=== PATIENT | male | born 1955 | race Hispanic/Latino ===

== ENCOUNTER 2017-11-04 18:57 | Inpatient (IN) | payer MEDICARE, SELFPAY ==
[~2017-11-04 18:57] MED LIST: ISOVUE-370 76%-LOCM 1 ML ONE
[2017-11-04] MEDS ORDERED: Fentanyl 20 MCG/ML 250 ML IVPB SCH ×2 (19:15→22:50)
[2017-11-04] MEDS ORDERED: Sodium Bicarb 50 MEQ/50 ML Abboject 8.4% SYRINGE ONE ×2 (19:18→19:28)
[2017-11-04 19:19] LABS: Actual Bicarbonate (HCO3a) 32.5 mEq/L (22-26); Base Excess (BEa) 0.7 mEq/L (0 (+/-) 2.5); CO2 Tension 95.9 mmHg (35.0-45.0); Hematocrit-ABG 46.5 % (42.0-52.0); Hemoglobin (Hb) 13.6 g/dL (14.0-18.0); O2 Tension (PaO2) 167.2 mmHg (80.0-100.0); pH, Arterial 7.15 (7.35-7.45)
[2017-11-04 19:20] LABS: ALV-art Gradient 137.725 (0-20); Analyzer IN Cardio ER; Calcium, Ionized 1.1 mmol/L (1.12-1.30); Puncture Site RRA
[2017-11-04] MEDS ORDERED: Fentanyl 100 MCG/2 ML VIAL ONE (19:25)
[2017-11-04] MEDS ORDERED: Albuterol Sulfate 2.5 mg/3 ml Neb ONE (19:38)
[2017-11-04 20:16] LABS: pH, Arterial 7.29 (7.35-7.45)
[2017-11-04 20:17] LABS: Actual Bicarbonate (HCO3a) 34.9 mEq/L (22-26); CO2 Tension 74.3 mmHg (35.0-45.0); Hematocrit-ABG 41.5 % (42.0-52.0); Hemoglobin (Hb) 12.8 g/dL (14.0-18.0); O2 Tension (PaO2) 151.3 mmHg (80.0-100.0)
[2017-11-04 20:18] LABS: ALV-art Gradient 180.625 (0-20); Analyzer IN Cardio ER; Puncture Site RRA
--- NOTE | 2017-11-04 20:35 | RAD ---
CHEST ONE VIEW: History: 62-year-old male who presented unresponsive, was intubated and had an NG tube placed. History of COPD and respiratory distress. FINDINGS: Endotracheal tube is in satisfactory location. NG tube has been placed, the distal tip of which is di fficult to definitely ascertain. It does appear to extend down to at least the hemidiaphragm but its distal portion is not definitely seen. There is some generalized right sided pleural thickening and s ome focal pleural thickening and/or loculated pleural effusion in the left costophrenic angle. IMPRESSION: Endotracheal tube in satisfactory location. NG tube placed with the tip extending down to near the le blank of the hemidiaphragm although the definite end of the tip is not seen. Right sided pleural thicke titi. Focal pleural density in the left costophrenic angle suggesting some loculated pleural fluid or some pleural thickening. No evidence for pneumonia. POS: [facility]
[2017-11-04] MEDS: Famotidine/PF 20 mg/2ml Vial SLOW IVP SCH (21:45)
[2017-11-04] MEDS ORDERED: Propofol 1,000 MG/100 ML VIAL IV ONE (21:47)
[2017-11-04] MEDS ORDERED: Vancomycin HCl 1 GM in Sodium Chloride 0.9% 250 ML 250 ML IVPB SCH (22:18)
[2017-11-04] MEDS ORDERED: Dextrose 5% in Water 1,000 ML IV PRN (22:18)
[2017-11-04] MEDS ORDERED: Dextrose 50% Abboject 50 ML SYRINGE SLOW IVP PRN (22:18)
[2017-11-04] MEDS ORDERED: DC Sedation Protocol FS SCH (22:18)
[2017-11-04] MEDS ORDERED: CCU Electrolyte Replacement 1 EACH FS SCH (22:18)
[2017-11-04] MEDS ORDERED: Potassium Phosphate 15 MMOL in Sodium Chloride 0.9% 250 ML 250 ML IV PRN (22:32)
[2017-11-04] MEDS ORDERED: Magnesium Oxide 400 MG TAB PO PRN ×2 (22:32)
[2017-11-04] MEDS ORDERED: Potassium Phosphate 12 MMOL in Sodium Chloride 0.9% 250 ML 250 ML IV PRN (22:32)
[2017-11-04] MEDS ORDERED: Magnesium 2 GM/NS 0.9% 100 ML 2 GM in Premix Bag 1 BAG IVPB PRN (22:32)
[2017-11-04] MEDS ORDERED: Potassium Chloride 40 MEQ in Premix Bag 1 BAG IVPB PRN (22:32)
[2017-11-04] MEDS ORDERED: Potassium Phosphate 9 MMOL in Sodium Chloride 0.9% 100 ML IVPB PRN (22:32)
[2017-11-04] MEDS ORDERED: Potassium Chloride 20 MEQ TAB PO PRN (22:32)
[2017-11-04] MEDS ORDERED: CCU ELECTROLYTE REPLACEMENT PROTOCOL FS PRN (22:32)
[2017-11-04] MEDS ORDERED: Vancomycin HCl 1 GM in Premix Bag 1 BAG IVPB SCH (22:45)
[2017-11-04] MEDS ORDERED: Piperacillin/Tazobactam 4.5 GM in Sodium Chloride 0.9% 100 ML IVPB SCH (22:45)
[2017-11-04] MEDS ORDERED: Ipratropium Bromide 2.5 ml Neb NEB SCH (22:45)
[2017-11-04] MEDS ORDERED: Famotidine/PF 20 mg/2ml Vial SLOW IVP SCH (22:45)
[2017-11-04] MEDS ORDERED: Albuterol Sulfate 2.5 mg/3 ml Neb NEB SCH (22:45)
--- NOTE | 2017-11-04 22:47 | CT ---
CHEST CTA ABDOMEN CTA: Exams include 3D rendering. History: 62-year-old male who was unresponsive and with distended abdomen. FINDINGS: There are some bilateral somewhat irregular pleural thickening noted bilaterally with scattered pleur al based parenchymal changes, evidence for some chronic lung change. Minimally enlarged upper pretrac heal lymph node at 1.2 cm with some other smaller mediastinal and bilateral hilar lymph nodes. Three vessel coronary artery calcific disease. The contrast bolus is very limited for aortic and pulmonary artery evaluation. The central pulmonary arteries appear to be free of thrombus. No evidence for thoracic aortic aneurys m or dissection. The abdomen shows some atherosclerotic calcific plaques but no evidence of aneurysm or dissection. Th ere are some fatty changes in the liver. No evidence for other significant acute process in the abdom en other than a nonobstructing right renal calculus. IMPRESSION: 1. No evidence for aortic aneurysm or dissection. No central pulmonary artery thrombus. 2. Very limited contrast concentration which lowers the sensitivity of this study. Scattered up to mi nimally enlarged lymph nodes in the mediastinal and hilar regions. Chronic appearing bilateral pleura l thickening and pleural based parenchymal changes. Endotracheal tube in satisfactory location. The N G tube extends well into the stomach. Nonobstructing right renal calculus. No evidence of abdominal a scites. No other acute process. POS: [facility]
[2017-11-04] MEDS ORDERED: DISCONTINUE PREVIOUS NARCOTIC PAIN MEDICATIONS AND BENZODIAZEPINES FS SCH (22:50)
[2017-11-04] MEDS ORDERED: Sodium Chloride 0.9% 1,000 ML IV SCH (23:00)
[2017-11-04] MEDS ORDERED: VANCOMYCIN IVPB PRN (23:19)
[2017-11-04] MEDS: Sodium Chloride 0.9% 1,000 ML IV SCH (23:30)
[2017-11-05] MEDS: HumaLOG 300 UNITS/3 ML VIAL SC PRN ×5 (00:17→21:25)
[2017-11-05] MEDS ORDERED: Ipratropium Bromide 2.5 ml Neb NEB SCH (01:00)
[2017-11-05] MEDS ORDERED: Albuterol Sulfate 2.5 mg/3 ml Neb NEB SCH (01:00)
--- NOTE | 2017-11-05 01:07 | HP ---
CHIEF COMPLAINT: Shortness of breath. HISTORY OF PRESENT ILLNESS: This is a 62-year-old pleasant gentleman who was apparently in usual sta te of health who called the EMS to his home because of shortness of breath. In the morning, they gav e him some breathing treatments and he felt better, but they recommended him to come to the hospital, but he refused today. The EMS was called back again and afterwards at which point, he was more shor t of breath and they tried BiPAP event, he failed BiPAP and he was brought to the emergency room, whe re he was intubated. The patient was then sent out here for higher level of care. Patient was given 2 amps of bicarb out here and some empiric antibiotics. Patient was on empiric antibiotics and agai n he is going to be admitted to the CCU for management of the acute respiratory failure most of the h istory is obtained from the old chart and the ER physician. PAST MEDICAL HISTORY: Significant for recent admission in 12/2016 for similar problems. Past medica l history significant for chronic respiratory failure due to chronic obstructive pulmonary disease ex acerbation, obstructive sleep apnea, morbid obesity, hypertension, diabetes mellitus, congestive hear t failure with normal EF. PAST SURGICAL HISTORY: Significant for pacemaker placement. CODE STATUS: FULL CODE. SOCIAL HISTORY: Smokes apparently half pack per day. Denies any alcohol or recreational drug use. MEDICATIONS: Please see MAR. ALLERGIES: No known drug allergies. FAMILY HISTORY: Negative for diabetes and hypertension. REVIEW OF SYSTEMS: Cannot be obtained as patient is sedated. PHYSICAL EXAMINATION: GENERAL: Patient is lying in bed, intubated, and sedated. HEENT: Atraumatic, normocephalic. Pupils are equally round, reactive to light. Extraocular muscle movements intact. Mucous membranes moist. NECK: Supple. No JVD. CHEST: Coarse breath sounds heard. ABDOMEN: Soft and distended, vague pulsatile mass present. Bowel sounds are sluggish. EXTREMITIES: No cyanosis, clubbing, edema. Distal pulses present. NEUROLOGIC: The patient is intubated, cannot be evaluated. LABORATORY DATA: ABG 7.15, pCO2 was 95, pO2 is 167. Patient's WBC count is 22, hemoglobin is 14, po tassium is 5, creatinine 0.8. Chest x-ray shows congestion. ASSESSMENT AND PLAN: 1. Sepsis with elevated white count, possibly secondary to some kind of pulmonary infection giving r ise to chronic obstructive pulmonary disease exacerbation coupled with congestive heart failure exace rbation, giving rise to acute respiratory failure. We will intubate the patient. We will consult Pu lmonary, we will follow BNP. We will give the patient antibiotics, steroids, and do vent management. Neb treatments as needed. We will trend troponins. 2. Status post pacemaker, stable. 3. Patient's abdominal distention, we will do CT scan of the abdomen and do the need for. 4. Morbid obesity. 5. History of obstructive sleep apnea, and diabetes. We will put him on insulin sliding scale. 6. History of hypertension. 7. Sequential compression devices for deep venous thrombosis prophylaxis. I will work with Pulmonar y and further caring for the patient for the acute respiratory failure. Clinical course, we will make recommendations as the clinical course evolves.
[2017-11-05 01:38] LABS: Bacteria/HPF None Seen HPF (None Seen); Bilirubin Negative (Negative); Blood, Urine Negative (Negative); Clarity CLEAR (Clear); Glucose, Urine (Dipstick) 500 mg/dL (Negative); Hyaline Casts/LPF 4-6 HYALINE CAST LPF (0-3 Hyaline); Leukocyte Negative (Negative); Nitrite Negative (Negative); Pathc Cast-AUWi Flag 1.08 (0-2.49); Protein, Urine (Dipstick) 30 mg/dL (Neg-Trace); Squamous Epithelial 0-3 HPF (0-3); Urobilinogen 0.2 mg/dL (0.2-1.0)
[2017-11-05 01:39] LABS: Specific Gravity, Urine 1.086 (1.002-1.036)
--- NOTE | 2017-11-05 02:16 | CON ---
DATE OF CONSULTATION: 11/04/2017 CONSULTING PHYSICIAN: Hospitalist Group. REASON FOR CONSULTATION: Acute hypoxic and hypercapnic respiratory failure related to his chronic ob structive pulmonary disease exacerbation. HISTORY OF PRESENT ILLNESS: The patient is a 62-year-old male who presented to the [facility] Room with respiratory failure. I do not know when symptoms started; apparently, he failed mel nvasive measures at [place] and was subsequently intubated. He was then helicoptered over here for further evaluation. PAST MEDICAL HISTORY: 1. Chronic obstructive pulmonary disease. 2. Obstructive sleep apnea requiring CPAP at night. 3. Morbid obesity. 4. Hypertension. 5. Diabetes mellitus type 2. 6. Hyperlipidemia. 7. Congestive heart failure, unknown systolic versus diastolic. PAST SURGICAL HISTORY: Pacemaker placement. MEDICATIONS PRIOR TO ADMISSION: Have not been updated at this time. Previously, he has been on pred nisone, metformin, clonazepam, buspirone, spironolactone, sertraline, potassium chloride, lisinopril, DuoNeb, Levemir insulin, gabapentin, Lasix, carvedilol, and aspirin. ALLERGIES: None. FAMILY MEDICAL HISTORY: Unremarkable. SOCIAL HISTORY: Not known about smoking or tobacco use at this time. REVIEW OF SYSTEMS: Cannot be obtained as patient is currently on mechanical ventilation. PHYSICAL EXAMINATION: VITAL SIGNS: Heart rate 81, blood pressure 105/57, O2 saturation 96%, respiratory rate 21. GENERAL: He is intubated and sedated on mechanical ventilation. HEENT: His pupils are reactive. Sclerae are anicteric. Oropharynx: Dry oral mucous membranes. NECK: Without adenopathy or JVD. LUNGS: He has expiratory wheezing and poor air movement bilaterally. He is not using accessory musc les. CARDIAC: S1, S2 regular. There is no murmur, rub, or gallop. ABDOMEN: Profoundly obese and distended. EXTREMITIES: He had still covering his feet. He had no clubbing, no cyanosis. NEUROLOGIC: He is able to move all 4 extremities and follow commands. LABORATORY DATA: PH of 7.29, pCO2 of 74, pO2 of 151 on SIMV rate of 24, tidal volume 500, PEEP 5, pr essure support 10, FiO2 of 60%. BNP 89. White blood cell count 22.3, hematocrit 44.7, platelet coun t 272. INR 1.0. D-dimer 0.33. Sodium 137, potassium 5, chloride 92, CO2 of 31, BUN 12, creatinine 0.8, glucose 282. Lactate 1.7. CPK 491. Chest x-ray shows hyperinflation without evidence of mass, effusion, or infiltrate. CT scan of the chest showed chronic old small pleural effusions bilaterall y and areas of emphysema. ASSESSMENT: 1. Acute hypercapnic and hypoxic respiratory failure related to chronic obstructive pulmonary diseas e exacerbation. 2. Chronic obstructive pulmonary disease exacerbation. 3. Obstructive sleep apnea. 4. Morbid obesity. 5. Leukocytosis. 6. Hyperglycemia. 7. Diabetes mellitus. PLAN: 1. The patient will be kept on mechanical ventilation. I have adjusted the ventilator to allow a mo re prolonged expiratory phase. 2. Sedate with propofol. 3. Deep venous thrombosis prophylaxis with Lovenox or heparin. 4. Gastrointestinal prophylaxis with Pepcid. 5. Nebulization therapy, antibiotics, and steroids.
[2017-11-05 02:28] LABS: Troponin I 0.015 ng/mL (< 0.028)
[2017-11-05] MEDS: Piperacillin/Tazobactam 4.5 GM in Sodium Chloride 0.9% 100 ML IVPB SCH ×4 (05:25→23:08)
[2017-11-05] MEDS: Propofol 1,000 MG/100 ML VIAL IV PRN ×4 (05:51→23:08)
[2017-11-05 06:29] LABS: Hemoglobin 11.7 g/dL (14.0-18.0); Mean Corpuscular HGB CONC 30.8 g/dL (32.0-36.0); Mean Corpuscular Hemoglobin 30.9 pg (27.0-31.0); Mean Platelet Volume 7.7 fL (7.4-10.4); Platelet Count 202 thou/uL (130-400); RBC Distribution Width 12.2 % (11.5-14.5); Red Blood Cell (RBC) Count 3.79 mill/uL (4.70-6.10); White Blood Cell (WBC) Count 16.4 thou/uL (4.8-10.8)
[2017-11-05 06:33] LABS: Troponin I 0.012 ng/mL (< 0.028)
[2017-11-05 06:46] LABS: ALT (SGPT) 20 U/L (8-55); AST (SGOT) 23 U/L (5-34); Albumin 3.3 g/dL (3.5-5.0); Alkaline Phosphatase 82 U/L (40-150); Anion Gap 12 mmol/L (10-20); BUN (Urea Nitrogen) 18 mg/dL (8.4-25.7); Bilirubin, Total 0.2 mg/dL (0.2-1.2); Calc. Creatinine Clearance 168 mL/min (70-130); Calcium 7.5 mg/dL (7.8-10.44); Carbon Dioxide 31 mmol/L (22-29); Chloride 98 mmol/L (98-107); Estimated GFR-MDRD 90; Globulin 2.8 g/dL (2.4-3.5); Glucose 344 mg/dL (70-105); Potassium 4.5 mmol/L (3.5-5.1); Protein, Total 6.1 g/dL (6.0-8.3); Sodium 136 mmol/L (136-145)
[2017-11-05 07:26] LABS: Band 50 % (5-11); Eosinophils 1 % (0-10); Lymphocytes 2 % (21-51); MDiff Complete? YES; Monocytes 2 % (0-10); Neutrophil 45 % (42-75); RBC Morphology Normal; Reflex for Review?? NO
[2017-11-05] MEDS: Famotidine/PF 20 mg/2ml Vial SLOW IVP SCH ×2 (08:10→20:06)
[2017-11-05] MEDS: Enoxaparin Sodium 40 MG/0.4 ML SYRINGE SC SCH (08:10)
[2017-11-05 08:42] LABS: Actual Bicarbonate (HCO3a) 35.4 mEq/L (22-26); Base Excess (BEa) 4.2 mEq/L (0 (+/-) 2.5); Calcium, Ionized 1.1 mmol/L (1.12-1.30); Hematocrit-ABG 38.5 % (42.0-52.0); Hemoglobin (Hb) 11.5 g/dL (14.0-18.0); O2 Tension (PaO2) 100.2 mmHg (80.0-100.0)
[2017-11-05 08:43] LABS: pH, Arterial 7.17 (7.35-7.45)
[2017-11-05 08:44] LABS: ALV-art Gradient 275.425 (0-20); CO2 Tension 99.9 mmHg (35.0-45.0); Puncture Site RRA
--- NOTE | 2017-11-05 08:51 | PDOC.PULCC ---
CCU Progress Note: Subj/Obj - Subjective Date: 11/05/17 Time: 08:49 Subjective: Sedated heavily on mechanical ventilation. No problems overnight. - Objective Allergies/Adverse Reactions: Allergies Allergy/AdvReac Type Severity Reaction Status Date / Time No Known Allergies Allergy Verified 11/04/17 23:27 Medications: Current Medications Albuterol/Ipratropium (Duoneb) 3 ml NEB [id number] [facility] Last Admin: 11/05/17 08:16 Dose: 3 ml Dextrose/Water (Dextrose 50%) 25 gm SLOW IVP PRN PRN PRN Reason: Hypoglycemia Enoxaparin Sodium (Lovenox) 40 mg SC 0900 [facility] Last Admin: 11/05/17 08:10 Dose: 40 mg Famotidine (Pepcid) 20 mg SLOW IVP Q12HR [facility] Last Admin: 11/05/17 08:10 Dose: 20 mg Glucagon (Glucagon) 1 mg IM PRN PRN PRN Reason: Hypoglycemia Dextrose/Water (D5w) 1,000 mls @ 0 mls/hr IV .Q0M PRN; As Directed PRN Reason: Hypoglycemia Sodium Chloride (Normal Saline 0.9%) 1,000 mls @ 75 mls/hr IV .[id number] [facility] Last Admin: 11/04/17 23:30 Dose: 1,000 mls Piperacillin Sod/Tazobactam (Sod 4.5 gm/ Sodium Chloride) 100 mls @ 200 mls/hr IVPB 0600,1200,1800,2359 [facility] Last Admin: 11/05/17 05:25 Dose: 100 mls Potassium Chloride 40 meq/ (Sodium Chloride) 270 mls @ 135 mls/hr IVPB ASDIR PRN PRN Reason: FOR SERUM K+ 2.5 - 3.5 Potassium Chloride 40 meq/ (Device) 100 mls @ 50 mls/hr IVPB ASDIR PRN PRN Reason: FOR SERUM K+ 2.5 - 3.5 Magnesium Sulfate 1 gm/ Sodium (Chloride) 102 mls @ 102 mls/hr IV PRN PRN PRN Reason: MAG LEVEL 1.4 - 2.0 Magnesium Sulfate 2 gm/ Device 100 mls @ 100 mls/hr IVPB ASDIR PRN PRN Reason: MAGNESIUM < 1.4 Potassium Phosphate 9 mmol/ (Sodium Chloride) 103 mls @ 25.75 mls/hr IVPB ASDIR PRN PRN Reason: Phosphate 1.0-1.8 Potassium Phosphate 12 mmol/ (Sodium Chloride) 254 mls @ 63.5 mls/hr IV ASDIR PRN PRN Reason: Serum phosphate 0.5-0.9 Potassium Phosphate 15 mmol/ (Sodium Chloride) 255 mls @ 63.75 mls/hr IV ASDIR PRN PRN Reason: Serum Phos < 0.5 Fentanyl (Fentanyl Cadd) 250 mls @ 0 mls/hr IVPB INF [facility]; Titrate PRN Reason: Protocol Stop: 12/04/17 22:50 Fentanyl Citrate (Fentanyl Bolus) 250 mls @ 0 mls/hr IVPB PRN PRN; As Directed PRN Reason: Breakthrough pain Stop: 12/04/17 22:50 Vancomycin HCl 2 gm/ Sodium (Chloride) 500 mls @ 250 mls/hr IVPB 0900,2100 [facility] Last Admin: 11/05/17 08:38 Dose: 500 mls Influenza Virus Vaccine (Fluzone Quad [id number] Syringe) 0.5 ml IM .ONCE ONE Stop: 11/05/17 09:01 Insulin Human Lispro (Humalog) 0 units SC .MODERATE SLIDING SC PRN PRN Reason: Moderate Correctional Scale Last Admin: 11/05/17 05:20 Dose: 8 units Lorazepam (Ativan) 2 mg SLOW IVP Q2H PRN PRN Reason: Anxiety to achieve Rae 2-3 Stop: 12/04/17 22:50 Magnesium Oxide (Magnesium Oxide) 400 mg PO BIDPRN PRN PRN Reason: FOR SERUM MAG 1.4 - 2.0 Magnesium Oxide (Magnesium Oxide) 800 mg PO PRN PRN PRN Reason: FOR SERUM MAG < 1.4 Methylprednisolone Sodium Succinate (Solu-Medrol) 40 mg IVP Q6HR [facility] Last Admin: 11/05/17 05:25 Dose: 40 mg Miscellaneous Medication (Phos-Nak) 1 pkt PO TIDPRN PRN PRN Reason: FOR PHOS LEVEL 1.0 - 1.8 Miscellaneous Medication (Phos-Nak) 2 pkt PO TIDPRN PRN PRN Reason: FOR PHOS LEVEL 0.5 - 1.0 Miscellaneous Medication (Pharmacy To Dose) 1 each IVPB PRN PRN PRN Reason: EMPIRIC/RESP Morphine Sulfate (Morphine) 2 mg IVP Q2H PRN PRN Reason: Breakthrough pain Ccu Electrolyte (Replacement Protocol) 0 each FS PRN PRN PRN Reason: FOR ELECTROLYTE REPLACEMENT Discontinue Previous Narcotic Pain Medications And Benzodiazepines 1 each FS .ONE [facility] Stop: 12/04/17 22:50 Pneumococcal Polyvalent Vaccine (Pneumovax 23) 0.5 ml IM .ONCE ONE Stop: 11/05/17 09:01 Potassium Chloride (K-Dur) 40 meq PO ASDIR PRN PRN Reason: FOR SERUM K+ 2.5 - 3.5 Potassium Chloride (Klor-Con) 40 meq PER TUBE ASDIR PRN PRN Reason: FOR SERUM K+ 2.5-3.5 Propofol (Diprivan) 1,000 mg IV INF PRN; Protocol PRN Reason: TO ACHIEVE RAE SCORE 2-3 Stop: 12/04/17 22:50 Last Admin: 11/05/17 05:51 Dose: 1,000 mg MAR Reviewed: Yes Vital Signs and I&O: Vital Signs Temp 99.2 F 11/05/17 07:00 Pulse 90 11/05/17 08:16 Resp 18 11/05/17 08:16 BP Pulse Ox 96 11/05/17 08:16 Intake & Output 11/04/17 11/05/17 11/05/17 18:59 06:59 18:59 Intake Total 1833.4 Output Total 1065 120 Balance 768.4 -120 Weight 291 lb 14.272 oz Intake: Intake, IV Amount 1833.4 Dextrose 5% in Water 1, 1000 000 ml @ As Directed IV . Q0M PRN Rx#:[id number] Fentanyl 20 MCG/ML 250 ml 43.4 @ Titrate IVPB INF [facility] Rx#:[id number] Propofol 1000 mg (See 67 Protocol) IV INF PRN Rx#: [id number] Sodium Chloride 0.9% 1, 723 000 ml @ 75 mls/hr IV . [id number] [facility] Rx#:[id number] Output: Gastric Drainage 100 Output, Rosales 965 120 Other: *Amount Reported-IN IV Fluid 2,500 Voiding Method Indwelling Catheter # Bowel Movements 1 Vent Setting: Vent Setting Vent - Assess Status Start: 11/04/17 21: 45 Freq: Q2HR Status: Active Protocol: Document 11/05/17 08:00 LLG (Rec: 11/05/17 08:07 [facility] [id number]) Spontaneous Breathing Test: not done (Not weanable yet. Peak pressures dropped to low 40. Plateau 28) CCU Progress Note: Exam - Physical Exam Constitutional: NAD HEENT: PERRLA, moist MMs, sclera anicteric Neck: no nodes, no JVD Cardiovascular: RRR, no significant murmur, no rub Respiratory: prolonged expiratory phase, wheezes Gastrointestinal: soft, non-tender, no distention, positive bowel sounds Musculoskeletal: no edema, pulses present Neurological: non-focal, normal sensation, moves all 4 limbs Lymphatic: no nodes Skin: no rash (Has high CO2 on blood gas. Permissive hypercapnea) - Labs Result Diagrams: 11/05/17 04:12 11/05/17 04:12 Lab results: Laboratory Results - last 24 hr 11/04/17 11/04/17 11/05/17 22:03 22:03 00:17 WBC RBC Hgb Hct MCV MCH MCHC RDW Plt Count MPV Neutrophils % (Manual) Band Neuts % (Manual) Lymphocytes % (Manual) Monocytes % (Manual) Eosinophils % (Manual) Neutrophils # Lymphocytes # RBC Morph Comment Specimen Type Puncture Site Bicarbonate Actual ABG pH ABG pCO2 ABG pO2 ABG O2 Sat Calc/Marco ABG O2 Content ABG Base Excess ABG Hematocrit ABG Hemoglobin ABG Oxyhemoglobin ABG Carboxyhemoglobin ABG Methemoglobin ABG Deoxyhemoglobin Scar Test A-a O2 Gradient Ionized Calcium Mode of Support Mechanical Rate Inspired O2 Tidal Volume Pressure Support PEEP or CPAP Sodium Potassium Chloride Carbon Dioxide Anion Gap BUN Creatinine Estimated GFR (MDRD) Glucose POC Glucose 300 H Lactic Acid 1.1 Calcium Total Bilirubin AST ALT Alkaline Phosphatase Troponin I 0.020 Serum Total Protein Albumin Globulin Albumin/Globulin Ratio Urine Color Urine Clarity Urine pH Ur Specific [place] Urine Protein Urine Glucose (UA) Urine Ketones Urine Blood Urine Nitrite Urine Bilirubin Urine Urobilinogen Ur Leukocyte Esterase Urine RBC Urine WBC Ur Squamous Epith Cells Urine Bacteria Hyaline Casts 11/05/17 11/05/17 11/05/17 00:30 01:36 04:12 WBC 16.4 H RBC 3.79 L Hgb 11.7 L Hct 38.1 L MCV 100.0 H MCH 30.9 MCHC 30.8 L RDW 12.2 Plt Count 202 MPV 7.7 Neutrophils % (Manual) 45 Band Neuts % (Manual) 50 H Lymphocytes % (Manual) 2 L Monocytes % (Manual) 2 Eosinophils % (Manual) 1 Neutrophils # Not Reportable Lymphocytes # Not Reportable RBC Morph Comment Normal Specimen Type Puncture Site Bicarbonate Actual ABG pH ABG pCO2 ABG pO2 ABG O2 Sat Calc/Marco ABG O2 Content ABG Base Excess ABG Hematocrit ABG Hemoglobin ABG Oxyhemoglobin ABG Carboxyhemoglobin ABG Methemoglobin ABG Deoxyhemoglobin Scar Test A-a O2 Gradient Ionized Calcium Mode of Support Mechanical Rate Inspired O2 Tidal Volume Pressure Support PEEP or CPAP Sodium Potassium Chloride Carbon Dioxide Anion Gap BUN Creatinine Estimated GFR (MDRD) Glucose POC Glucose Lactic Acid Calcium Total Bilirubin AST ALT Alkaline Phosphatase Troponin I 0.015 Serum Total Protein Albumin Globulin Albumin/Globulin Ratio Urine Color YELLOW Urine Clarity CLEAR Urine pH 6.0 Ur Specific [place] 1.086 H Urine Protein 30 H Urine Glucose (UA) 500 H Urine Ketones Negative Urine Blood Negative Urine Nitrite Negative Urine Bilirubin Negative Urine Urobilinogen 0.2 Ur Leukocyte Esterase Negative Urine RBC 4-6 Urine WBC 4-6 H Ur Squamous Epith Cells 0-3 Urine Bacteria None Seen Hyaline Casts 4-6 HYALINE CAST H 11/05/17 11/05/17 11/05/17 04:12 04:12 05:19 WBC RBC Hgb Hct MCV MCH MCHC RDW Plt Count MPV Neutrophils % (Manual) Band Neuts % (Manual) Lymphocytes % (Manual) Monocytes % (Manual) Eosinophils % (Manual) Neutrophils # Lymphocytes # RBC Morph Comment Specimen Type Puncture Site Bicarbonate Actual ABG pH ABG pCO2 ABG pO2 ABG O2 Sat Calc/Marco ABG O2 Content ABG Base Excess ABG Hematocrit ABG Hemoglobin ABG Oxyhemoglobin ABG Carboxyhemoglobin ABG Methemoglobin ABG Deoxyhemoglobin Scar Test A-a O2 Gradient Ionized Calcium Mode of Support Mechanical Rate Inspired O2 Tidal Volume Pressure Support PEEP or CPAP Sodium 136 Potassium 4.5 Chloride 98 Carbon Dioxide 31 H Anion Gap 12 BUN 18 Creatinine 0.87 Estimated GFR (MDRD) 90 Glucose 344 H POC Glucose 305 H Lactic Acid Calcium 7.5 L Total Bilirubin 0.2 AST 23 ALT 20 Alkaline Phosphatase 82 Troponin I 0.012 Serum Total Protein 6.1 Albumin 3.3 L Globulin 2.8 Albumin/Globulin Ratio 1.2 Urine Color Urine Clarity Urine pH Ur Specific [place] Urine Protein Urine Glucose (UA) Urine Ketones Urine Blood Urine Nitrite Urine Bilirubin Urine Urobilinogen Ur Leukocyte Esterase Urine RBC Urine WBC Ur Squamous Epith Cells Urine Bacteria Hyaline Casts 11/05/17 08:30 WBC RBC Hgb Hct MCV MCH MCHC RDW Plt Count MPV Neutrophils % (Manual) Band Neuts % (Manual) Lymphocytes % (Manual) Monocytes % (Manual) Eosinophils % (Manual) Neutrophils # Lymphocytes # RBC Morph Comment Specimen Type ARTERIAL Puncture Site RRA Bicarbonate Actual 35.4 H ABG pH 7.17 L* ABG pCO2 99.9 H* ABG pO2 100.2 H ABG O2 Sat Calc/Marco 96.8 ABG O2 Content 15.5 L ABG Base Excess 4.2 H ABG Hematocrit 38.5 L ABG Hemoglobin 11.5 L ABG Oxyhemoglobin 95.1 ABG Carboxyhemoglobin 1.1 ABG Methemoglobin 0.7 ABG Deoxyhemoglobin 3.1 Scar Test NOT DONE A-a O2 Gradient 275.425 H Ionized Calcium 1.1 L Mode of Support SIMV/PSV Mechanical Rate 18 Inspired O2 70 Tidal Volume 400 Pressure Support 10 PEEP or CPAP 8.0 Sodium 139 Potassium 4.3 Chloride 95 L Carbon Dioxide Anion Gap BUN Creatinine Estimated GFR (MDRD) Glucose POC Glucose Lactic Acid Calcium Total Bilirubin AST ALT Alkaline Phosphatase Troponin I Serum Total Protein Albumin Globulin Albumin/Globulin Ratio Urine Color Urine Clarity Urine pH Ur Specific [place] Urine Protein Urine Glucose (UA) Urine Ketones Urine Blood Urine Nitrite Urine Bilirubin Urine Urobilinogen Ur Leukocyte Esterase Urine RBC Urine WBC Ur Squamous Epith Cells Urine Bacteria Hyaline Casts CCU Progress Note: A/P - Problems (1) Acute respiratory failure with hypoxia and hypercapnia Current Visit: Yes Status: Acute Code(s): J96.01 - ACUTE RESPIRATORY FAILURE WITH HYPOXIA; J96.02 - ACUTE RESPIRATORY FAILURE WITH HYPERCAPNIA (2) COPD exacerbation Current Visit: Yes Status: Acute Code(s): J44.1 - CHRONIC OBSTRUCTIVE PULMONARY DISEASE W (ACUTE) EXACERBATION (3) DM type 2 (diabetes mellitus, type 2) Current Visit: Yes Status: Chronic Qualifiers: Diabetes mellitus complication status: without complication Diabetes mellitus custodial insulin use: with custodial use Qualified Code(s): E11.9 - Type 2 diabetes mellitus without complications; Z79.4 - truck terminal manager (current) use of insulin; Z79.4 - truck terminal manager (current) use of insulin; Z79.4 - [facility] ( current) use of insulin; Z79.4 - [facility] (current) use of insulin (4) Morbid obesity Current Visit: Yes Status: Chronic Code(s): E66.01 - MORBID (SEVERE) OBESITY DUE TO EXCESS CALORIES (5) COSME (obstructive sleep apnea) Current Visit: Yes Status: Chronic Code(s): G47.33 - OBSTRUCTIVE SLEEP APNEA (ADULT) (PEDIATRIC) - Time Spent with Patient Time: 35 min CC time - Plan Plan: Adjusted ventilator to promote more minute ventilation Peak and plateau better continue steroids, nebs, and antibiotics begin TF
[2017-11-05] MEDS ORDERED: FLU VACC QS2017-18 36 mo. & older 0.5 ML SYRINGE IM ONE (09:00)
--- NOTE | 2017-11-05 11:46 | PDOC.PN ---
- Subjective Encounter Start Date: 11/05/17 Encounter Start Time: 12:30 -: non-verbal Subjective: sedated on vent, no events overnight - Objective MAR Reviewed: Yes Vital Signs & Weight: Vital Signs (12 hours) Temp Pulse Resp Pulse Ox 11/05/17 11:00 99.0 F 11/05/17 10:00 25 H 11/05/17 08:16 90 18 96 11/05/17 08:00 99.2 F 90 18 95 11/05/17 07:00 99.2 F 11/05/17 06:00 18 11/05/17 04:00 99.0 F 18 11/05/17 02:38 76 18 97 11/05/17 02:00 18 11/05/17 00:34 72 18 97 11/05/17 00:00 97.3 F L 18 Weight Weight 291 lb 14.272 oz Most Recent Monitor Data Heart Rate from ECG 78 NIBP 97/55 NIBP BP-Mean 63 Respiration from ECG 21 SpO2 97 I&O: 11/04/17 11/05/17 11/06/17 06:59 06:59 06:59 Intake Total 1833.4 Output Total 1065 230 Balance 768.4 -230 Result Diagrams: 11/05/17 04:12 11/05/17 04:12 Additional Labs: Accuchecks 11/05/17 11/05/17 11/05/17 11:12 05:19 00:17 POC Glucose 259 H 305 H 300 H Phys Exam - Physical Examination Constitutional: NAD HEENT: moist MMs good air movement on vent, some bilateral wheezes Cardiovascular: RRR, no significant murmur Gastrointestinal: soft, positive bowel sounds Neurological: non-focal, moves all 4 limbs Deviation from normal: sedated on vent Dx/Plan (1) Acute respiratory failure with hypoxia and hypercapnia Code(s): J96.01 - ACUTE RESPIRATORY FAILURE WITH HYPOXIA; J96.02 - ACUTE RESPIRATORY FAILURE WITH HYPERCAPNIA Status: Acute (2) COPD exacerbation Code(s): J44.1 - CHRONIC OBSTRUCTIVE PULMONARY DISEASE W (ACUTE) EXACERBATION Status: Acute (3) DM type 2 (diabetes mellitus, type 2) Status: Chronic Qualifiers: Diabetes mellitus complication status: without complication Diabetes mellitus terminologist insulin use: with intermediate use Qualified Code(s): E11.9 - Type 2 diabetes mellitus without complications; Z79.4 - equipment operator intermodal yard (current) use of insulin; Z79.4 - half-way (current) use of insulin; Z79.4 - half-way ( current) use of insulin; Z79.4 - equipment operator [employer]modal [employer] (current) use of insulin (4) Morbid obesity Code(s): E66.01 - MORBID (SEVERE) OBESITY DUE TO EXCESS CALORIES Status: Chronic (5) COSME (obstructive sleep apnea) Code(s): G47.33 - OBSTRUCTIVE SLEEP APNEA (ADULT) (PEDIATRIC) Status: Chronic (6) HLD (hyperlipidemia) Code(s): E78.5 - HYPERLIPIDEMIA, UNSPECIFIED Status: Chronic (7) HTN (hypertension) Code(s): I10 - ESSENTIAL (PRIMARY) HYPERTENSION Status: Chronic (8) CHF (congestive heart failure) Code(s): I50.9 - HEART FAILURE, UNSPECIFIED Status: Suspected Qualifiers: Congestive heart failure type: diastolic - Plan cont current plan of care, continue antibiotics, respiratory therapy * . - Discharge Day Encounter end time: 13:00
[2017-11-05] MEDS: Sodium Chloride 0.9% 1,000 ML IV SCH (11:47)
[2017-11-05] MEDS: Lorazepam 2 MG/ML VIAL SLOW IVP PRN ×2 (11:56→19:27)
[2017-11-06] MEDS: Propofol 1,000 MG/100 ML VIAL IV PRN ×6 (02:45→19:35)
[2017-11-06] MEDS: Lorazepam 2 MG/ML VIAL SLOW IVP PRN (03:27)
[2017-11-06 04:27] LABS: #Lymphocytes 0.9 thou/uL (1.20-3.40); #Monocytes 0.6 thou/uL (0.11-0.59); #Neutrophils 8.7 thou/uL (1.40-6.50); %Basophils 0.2 % (0.0-1.0); %Eosinophils 0.2 % (0.0-10.0); %Monocytes 5.9 % (0.0-10.0); %Neutrophils 84.8 % (42.0-75.0); Hemoglobin 11.5 g/dL (14.0-18.0); Mean Corpuscular HGB CONC 32.5 g/dL (32.0-36.0); Mean Corpuscular Hemoglobin 32.3 pg (27.0-31.0); Mean Corpuscular Volume 99.3 fl (80.0-94.0); Mean Platelet Volume 7.8 fL (7.4-10.4); Platelet Count 202 thou/uL (130-400); RBC Distribution Width 12.1 % (11.5-14.5); Red Blood Cell (RBC) Count 3.55 mill/uL (4.70-6.10); White Blood Cell (WBC) Count 10.2 thou/uL (4.8-10.8)
[2017-11-06 04:44] LABS: ALT (SGPT) 18 U/L (8-55); AST (SGOT) 15 U/L (5-34); Albumin 3.3 g/dL (3.5-5.0); Alkaline Phosphatase 67 U/L (40-150); Anion Gap 14 mmol/L (10-20); BUN (Urea Nitrogen) 25 mg/dL (8.4-25.7); Bilirubin, Total 0.2 mg/dL (0.2-1.2); Calc. Creatinine Clearance 148 mL/min (70-130); Calcium 8.1 mg/dL (7.8-10.44); Carbon Dioxide 29 mmol/L (22-29); Chloride 100 mmol/L (98-107); Estimated GFR-MDRD 78; Globulin 2.8 g/dL (2.4-3.5); Glucose 356 mg/dL (70-105); Potassium 4.2 mmol/L (3.5-5.1); Protein, Total 6.1 g/dL (6.0-8.3); Sodium 139 mmol/L (136-145)
[2017-11-06] MEDS: Sodium Chloride 0.9% 1,000 ML IV SCH ×2 (05:35→18:25)
[2017-11-06] MEDS: Piperacillin/Tazobactam 4.5 GM in Sodium Chloride 0.9% 100 ML IVPB SCH ×3 (05:36→18:28)
[2017-11-06] MEDS: HumaLOG 300 UNITS/3 ML VIAL SC PRN ×4 (05:54→21:07)
[2017-11-06 07:38] LABS: Base Excess (BEa) 3.8 mEq/L (0 (+/-) 2.5); Calcium, Ionized 1.1 mmol/L (1.12-1.30); Hematocrit-ABG 35.9 % (42.0-52.0); Hemoglobin (Hb) 11.3 g/dL (14.0-18.0); O2 Tension (PaO2) 83.1 mmHg (80.0-100.0); pH, Arterial 7.33 (7.35-7.45)
[2017-11-06 08:04] LABS: CO2 Tension 60.4 mmHg (35.0-45.0); Puncture Site RRA
[2017-11-06 08:31] LABS: Vancomycin, Trough 13.6 ug/mL
--- NOTE | 2017-11-06 08:47 | RAD ---
AP CHEST: Indication: History of intubation. Comparison: 11-04-17 IMPRESSION: ET tube, gastric catheter and AICD are unchanged. Cardiomegaly persists. Bibasilar atelectasis is pre sent. No pneumothorax is present. POS: OFF
--- NOTE | 2017-11-06 08:51 | PDOC.PULCC ---
CCU Progress Note: Subj/Obj - Subjective Date: 11/06/17 Time: 08:49 Subjective: Intubated and sedated. No changes overnight. Nurse says he follows commands - Objective Allergies/Adverse Reactions: Allergies Allergy/AdvReac Type Severity Reaction Status Date / Time No Known Allergies Allergy Verified 11/04/17 23:27 Medications: Current Medications Albuterol/Ipratropium (Duoneb) 3 ml NEB [id number] [facility] Last Admin: 11/06/17 07:22 Dose: 3 ml Dextrose/Water (Dextrose 50%) 25 gm SLOW IVP PRN PRN PRN Reason: Hypoglycemia Enoxaparin Sodium (Lovenox) 40 mg SC 0900 [facility] Last Admin: 11/05/17 08:10 Dose: 40 mg Famotidine (Pepcid) 20 mg SLOW IVP Q12HR [facility] Last Admin: 11/05/17 20:06 Dose: 20 mg Glucagon (Glucagon) 1 mg IM PRN PRN PRN Reason: Hypoglycemia Dextrose/Water (D5w) 1,000 mls @ 0 mls/hr IV .Q0M PRN; As Directed PRN Reason: Hypoglycemia Sodium Chloride (Normal Saline 0.9%) 1,000 mls @ 75 mls/hr IV .[id number] [facility] Last Admin: 11/06/17 05:35 Dose: 1,000 mls Piperacillin Sod/Tazobactam (Sod 4.5 gm/ Sodium Chloride) 100 mls @ 200 mls/hr IVPB 0600,1200,1800,2359 [facility] Last Admin: 11/06/17 05:36 Dose: 100 mls Potassium Chloride 40 meq/ (Sodium Chloride) 270 mls @ 135 mls/hr IVPB ASDIR PRN PRN Reason: FOR SERUM K+ 2.5 - 3.5 Potassium Chloride 40 meq/ (Device) 100 mls @ 50 mls/hr IVPB ASDIR PRN PRN Reason: FOR SERUM K+ 2.5 - 3.5 Magnesium Sulfate 1 gm/ Sodium (Chloride) 102 mls @ 102 mls/hr IV PRN PRN PRN Reason: MAG LEVEL 1.4 - 2.0 Magnesium Sulfate 2 gm/ Device 100 mls @ 100 mls/hr IVPB ASDIR PRN PRN Reason: MAGNESIUM < 1.4 Potassium Phosphate 9 mmol/ (Sodium Chloride) 103 mls @ 25.75 mls/hr IVPB ASDIR PRN PRN Reason: Phosphate 1.0-1.8 Potassium Phosphate 12 mmol/ (Sodium Chloride) 254 mls @ 63.5 mls/hr IV ASDIR PRN PRN Reason: Serum phosphate 0.5-0.9 Potassium Phosphate 15 mmol/ (Sodium Chloride) 255 mls @ 63.75 mls/hr IV ASDIR PRN PRN Reason: Serum Phos < 0.5 Fentanyl (Fentanyl Cadd) 250 mls @ 0 mls/hr IVPB INF [facility]; Titrate PRN Reason: Protocol Stop: 12/04/17 22:50 Fentanyl Citrate (Fentanyl Bolus) 250 mls @ 0 mls/hr IVPB PRN PRN; As Directed PRN Reason: Breakthrough pain Stop: 12/04/17 22:50 Vancomycin HCl 2 gm/ Sodium (Chloride) 500 mls @ 250 mls/hr IVPB 0900,2100 [facility] Last Admin: 11/05/17 20:08 Dose: 500 mls Insulin Human Lispro (Humalog) 0 units SC .MODERATE SLIDING SC PRN PRN Reason: Moderate Correctional Scale Last Admin: 11/06/17 05:54 Dose: 10 units Lorazepam (Ativan) 2 mg SLOW IVP Q2H PRN PRN Reason: Anxiety to achieve Rae 2-3 Stop: 12/04/17 22:50 Last Admin: 11/06/17 03:27 Dose: 2 mg Magnesium Oxide (Magnesium Oxide) 400 mg PO BIDPRN PRN PRN Reason: FOR SERUM MAG 1.4 - 2.0 Magnesium Oxide (Magnesium Oxide) 800 mg PO PRN PRN PRN Reason: FOR SERUM MAG < 1.4 Methylprednisolone Sodium Succinate (Solu-Medrol) 40 mg IVP Q6HR [facility] Last Admin: 11/06/17 05:36 Dose: 40 mg Miscellaneous Medication (Phos-Nak) 1 pkt PO TIDPRN PRN PRN Reason: FOR PHOS LEVEL 1.0 - 1.8 Miscellaneous Medication (Phos-Nak) 2 pkt PO TIDPRN PRN PRN Reason: FOR PHOS LEVEL 0.5 - 1.0 Miscellaneous Medication (Pharmacy To Dose) 1 each IVPB PRN PRN PRN Reason: EMPIRIC/RESP Morphine Sulfate (Morphine) 2 mg IVP Q2H PRN PRN Reason: Breakthrough pain Ccu Electrolyte (Replacement Protocol) 0 each FS PRN PRN PRN Reason: FOR ELECTROLYTE REPLACEMENT Discontinue Previous Narcotic Pain Medications And Benzodiazepines 1 each FS .ONE [facility] Stop: 12/04/17 22:50 Potassium Chloride (K-Dur) 40 meq PO ASDIR PRN PRN Reason: FOR SERUM K+ 2.5 - 3.5 Potassium Chloride (Klor-Con) 40 meq PER TUBE ASDIR PRN PRN Reason: FOR SERUM K+ 2.5-3.5 Propofol (Diprivan) 1,000 mg IV INF PRN; Protocol PRN Reason: TO ACHIEVE RAE SCORE 2-3 Stop: 12/04/17 22:50 Last Admin: 11/06/17 05:40 Dose: 1,000 mg MAR Reviewed: Yes Vital Signs and I&O: Vital Signs Temp 100.9 F H 11/06/17 08:00 Pulse 94 11/06/17 08:00 Resp 25 H 11/06/17 08:00 BP 126/63 11/06/17 07:24 Pulse Ox 92 L 11/06/17 08:00 Intake & Output 11/05/17 11/06/17 11/06/17 18:59 06:59 18:59 Intake Total 1254 2343 45.8 Output Total 555 715 120 Balance 699 1628 -74.2 Weight 291 lb 14.272 oz 287 lb 0.67 oz Intake: Intake, IV Amount 1181 1723 45.8 Fentanyl 20 MCG/ML 250 ml 45.8 @ Titrate IVPB INF [facility] Rx#:[id number] Propofol 1000 mg (See 161 330 Protocol) IV INF PRN Rx#: [id number] Sodium Chloride 0.9% 1, 1020 1393 000 ml @ 75 mls/hr IV . [id number] [facility] Rx#:[id number] Tube Feeding 43 350 Tube Irrigant 30 270 Output: Output, Rosales 555 715 120 Other: Voiding Method Indwelling Catheter Indwelling Catheter Indwelling Catheter Vent Setting: simv 25/500/peep8/50% Spontaneous Breathing Test: not done CCU Progress Note: Exam - Physical Exam Constitutional: NAD HEENT: PERRLA, moist MMs, sclera anicteric Neck: no JVD Cardiovascular: RRR Respiratory: prolonged expiratory phase, wheezes Gastrointestinal: soft, non-tender, positive bowel sounds Musculoskeletal: edema present Neurological: non-focal, moves all 4 limbs Skin: no rash - Labs Result Diagrams: 11/06/17 03:30 11/06/17 03:30 Lab results: Laboratory Results - last 24 hr 11/05/17 11/05/17 11/05/17 11:12 15:41 21:23 WBC RBC Hgb Hct MCV MCH MCHC RDW Plt Count MPV Neutrophils % Lymphocytes % Monocytes % Eosinophils % Basophils % Neutrophils # Lymphocytes # Monocytes # Eosinophils # Basophils # Specimen Type Puncture Site Bicarbonate Actual ABG pH ABG pCO2 ABG pO2 ABG O2 Sat Calc/Marco ABG O2 Content ABG Base Excess ABG Hematocrit ABG Hemoglobin ABG Oxyhemoglobin ABG Carboxyhemoglobin ABG Methemoglobin ABG Deoxyhemoglobin Scar Test A-a O2 Gradient Ionized Calcium Mode of Support Mechanical Rate Inspired O2 Tidal Volume Pressure Support PEEP or CPAP Sodium Potassium Chloride Carbon Dioxide Anion Gap BUN Creatinine Estimated GFR (MDRD) Glucose POC Glucose 259 H 282 H 311 H Calcium Total Bilirubin AST ALT Alkaline Phosphatase Serum Total Protein Albumin Globulin Albumin/Globulin Ratio Vancomycin Trough 11/06/17 11/06/17 11/06/17 03:30 03:30 07:40 WBC 10.2 RBC 3.55 L Hgb 11.5 L Hct 35.3 L MCV 99.3 H MCH 32.3 H MCHC 32.5 RDW 12.1 Plt Count 202 MPV 7.8 Neutrophils % 84.8 H Lymphocytes % 9.0 L Monocytes % 5.9 Eosinophils % 0.2 Basophils % 0.2 Neutrophils # 8.7 H Lymphocytes # 0.9 L Monocytes # 0.6 H Eosinophils # 0.0 Basophils # 0.0 Specimen Type ARTERIAL Puncture Site RRA Bicarbonate Actual 31.0 H ABG pH 7.33 L ABG pCO2 60.4 H* ABG pO2 83.1 ABG O2 Sat Calc/Marco 96.8 ABG O2 Content 15.2 L ABG Base Excess 3.8 H ABG Hematocrit 35.9 L ABG Hemoglobin 11.3 L ABG Oxyhemoglobin 95.2 ABG Carboxyhemoglobin 1.0 ABG Methemoglobin 0.6 ABG Deoxyhemoglobin 3.2 Scar Test POSITIVE A-a O2 Gradient 201.400 H Ionized Calcium 1.1 L Mode of Support SIMV.PSV Mechanical Rate 25 Inspired O2 50 Tidal Volume 500 Pressure Support 10 PEEP or CPAP 8.0 Sodium 139 139 Potassium 4.2 4.1 Chloride 100 98 Carbon Dioxide 29 Anion Gap 14 BUN 25 Creatinine 0.98 Estimated GFR (MDRD) 78 Glucose 356 H POC Glucose Calcium 8.1 Total Bilirubin 0.2 AST 15 ALT 18 Alkaline Phosphatase 67 Serum Total Protein 6.1 Albumin 3.3 L Globulin 2.8 Albumin/Globulin Ratio 1.2 Vancomycin Trough 11/06/17 07:53 WBC RBC Hgb Hct MCV MCH MCHC RDW Plt Count MPV Neutrophils % Lymphocytes % Monocytes % Eosinophils % Basophils % Neutrophils # Lymphocytes # Monocytes # Eosinophils # Basophils # Specimen Type Puncture Site Bicarbonate Actual ABG pH ABG pCO2 ABG pO2 ABG O2 Sat Calc/Marco ABG O2 Content ABG Base Excess ABG Hematocrit ABG Hemoglobin ABG Oxyhemoglobin ABG Carboxyhemoglobin ABG Methemoglobin ABG Deoxyhemoglobin Scar Test A-a O2 Gradient Ionized Calcium Mode of Support Mechanical Rate Inspired O2 Tidal Volume Pressure Support PEEP or CPAP Sodium Potassium Chloride Carbon Dioxide Anion Gap BUN Creatinine Estimated GFR (MDRD) Glucose POC Glucose Calcium Total Bilirubin AST ALT Alkaline Phosphatase Serum Total Protein Albumin Globulin Albumin/Globulin Ratio Vancomycin Trough 13.6 CCU Progress Note: A/P - Problems (1) Acute respiratory failure with hypoxia and hypercapnia Current Visit: Yes Status: Acute Code(s): J96.01 - ACUTE RESPIRATORY FAILURE WITH HYPOXIA; J96.02 - ACUTE RESPIRATORY FAILURE WITH HYPERCAPNIA (2) COPD exacerbation Current Visit: Yes Status: Acute Code(s): J44.1 - CHRONIC OBSTRUCTIVE PULMONARY DISEASE W (ACUTE) EXACERBATION (3) DM type 2 (diabetes mellitus, type 2) Current Visit: Yes Status: Chronic Qualifiers: Diabetes mellitus complication status: without complication Diabetes mellitus meterman insulin use: with meterman use Qualified Code(s): E11.9 - Type 2 diabetes mellitus without complications; Z79.4 - superintendent terminal (current) use of insulin; Z79.4 - superintendent terminal (current) use of insulin; Z79.4 - intermediate ( current) use of insulin; Z79.4 - superintendent terminal (current) use of insulin (4) Morbid obesity Current Visit: Yes Status: Chronic Code(s): E66.01 - MORBID (SEVERE) OBESITY DUE TO EXCESS CALORIES (5) COSME (obstructive sleep apnea) Current Visit: Yes Status: Chronic Code(s): G47.33 - OBSTRUCTIVE SLEEP APNEA (ADULT) (PEDIATRIC) - Time Spent with Patient Time: 50% of the time was spent in coordination of care (as documented) at patient's floor/unit and/or counseling patient. 30 min cc time - Plan Plan: Not weanable secondary to continued air-trapping I will decrease RR to 20 continue steroids, ABX, TF, and nebs anticipate need for CCU at least 5 more days increase insulin
[2017-11-06] MEDS: Famotidine/PF 20 mg/2ml Vial SLOW IVP SCH ×2 (09:35→21:05)
[2017-11-06] MEDS: Enoxaparin Sodium 40 MG/0.4 ML SYRINGE SC SCH (09:35)
--- NOTE | 2017-11-06 09:36 | PDOC.PN ---
- Subjective Encounter Start Date: 11/06/17 Encounter Start Time: 10:00 -: non-verbal Subjective: intubated and sedated, no events overnight - Objective MAR Reviewed: Yes Vital Signs & Weight: Vital Signs (12 hours) Temp Pulse Resp BP Pulse Ox 11/06/17 08:00 100.9 F H 94 25 H 92 L 11/06/17 07:24 85 126/63 11/06/17 07:22 83 25 H 94 L 11/06/17 05:29 25 H 11/06/17 04:00 100.3 F H 25 H 11/06/17 03:10 76 25 H 96 11/06/17 02:00 25 H 11/06/17 00:34 82 25 H 94 L 11/05/17 23:18 25 H 11/05/17 23:00 100.1 F H 11/05/17 22:43 73 25 H 96 11/05/17 21:59 25 H Weight Admit Weight 291 lb Weight 287 lb 0.67 oz Most Recent Monitor Data Heart Rate from ECG 97 NIBP 128/54 NIBP BP-Mean 70 Respiration from ECG 27 SpO2 91 I&O: 11/05/17 11/06/17 11/07/17 06:59 06:59 06:59 Intake Total 1833.4 3597 45.8 Output Total 1065 1270 120 Balance 768.4 2327 -74.2 Result Diagrams: 11/06/17 03:30 11/06/17 03:30 Additional Labs: Accuchecks 11/05/17 11/05/17 11/05/17 21:23 15:41 11:12 POC Glucose 311 H 282 H 259 H Phys Exam - Physical Examination Constitutional: NAD HEENT: moist MMs Respiratory: no wheezing, no rales, no rhonchi no more wheezing this AM Cardiovascular: RRR, no significant murmur Gastrointestinal: soft, positive bowel sounds Musculoskeletal: no edema Deviation from normal: sedated on vent Dx/Plan (1) Acute respiratory failure with hypoxia and hypercapnia Code(s): J96.01 - ACUTE RESPIRATORY FAILURE WITH HYPOXIA; J96.02 - ACUTE RESPIRATORY FAILURE WITH HYPERCAPNIA Status: Acute (2) COPD exacerbation Code(s): J44.1 - CHRONIC OBSTRUCTIVE PULMONARY DISEASE W (ACUTE) EXACERBATION Status: Acute (3) DM type 2 (diabetes mellitus, type 2) Status: Chronic Qualifiers: Diabetes mellitus complication status: without complication Diabetes mellitus mcfp insulin use: with terminologist use Qualified Code(s): E11.9 - Type 2 diabetes mellitus without complications; Z79.4 - shelter (current) use of insulin; Z79.4 - terminologist (current) use of insulin; Z79.4 - shelter ( current) use of insulin; Z79.4 - terminologist (current) use of insulin (4) Morbid obesity Code(s): E66.01 - MORBID (SEVERE) OBESITY DUE TO EXCESS CALORIES Status: Chronic (5) COSME (obstructive sleep apnea) Code(s): G47.33 - OBSTRUCTIVE SLEEP APNEA (ADULT) (PEDIATRIC) Status: Chronic (6) HLD (hyperlipidemia) Code(s): E78.5 - HYPERLIPIDEMIA, UNSPECIFIED Status: Chronic (7) HTN (hypertension) Code(s): I10 - ESSENTIAL (PRIMARY) HYPERTENSION Status: Chronic (8) CHF (congestive heart failure) Code(s): I50.9 - HEART FAILURE, UNSPECIFIED Status: Suspected Qualifiers: Congestive heart failure type: diastolic - Plan cont current plan of care, continue antibiotics, respiratory therapy, DVT proph w/lovenox * . - Discharge Day Encounter end time: 10:30
[2017-11-06] MEDS: NPH, Human Insulin Isophane 300 UNIT/3 ML VIAL SC SCH ×2 (09:43→21:09)
[2017-11-07] MEDS: Piperacillin/Tazobactam 4.5 GM in Sodium Chloride 0.9% 100 ML IVPB SCH ×4 (00:06→18:01)
[2017-11-07] MEDS: Propofol 1,000 MG/100 ML VIAL IV PRN ×4 (00:07→21:19)
[2017-11-07] MEDS: Sodium Chloride 0.9% 1,000 ML IV SCH ×2 (00:07→17:19)
[2017-11-07] MEDS: Lorazepam 2 MG/ML VIAL SLOW IVP PRN ×5 (00:15→22:16)
[2017-11-07] MEDS: fentaNYL Citrate/PF 2,000 MCG in Sodium Chloride 0.9% 60 ML IV SCH ×2 (02:41→22:26)
[2017-11-07] MEDS: HumaLOG 300 UNITS/3 ML VIAL SC PRN ×4 (04:19→21:07)
[2017-11-07 04:58] LABS: #Lymphocytes 0.6 thou/uL (1.20-3.40); #Monocytes 0.5 thou/uL (0.11-0.59); #Neutrophils 5.1 thou/uL (1.40-6.50); %Basophils 0.4 % (0.0-1.0); %Eosinophils 0.1 % (0.0-10.0); %Lymphocytes 10.1 % (21.0-51.0); %Monocytes 8.3 % (0.0-10.0); %Neutrophils 81.1 % (42.0-75.0); Mean Corpuscular Hemoglobin 32.1 pg (27.0-31.0); Mean Platelet Volume 7.5 fL (7.4-10.4); Platelet Count 198 thou/uL (130-400); RBC Distribution Width 12.3 % (11.5-14.5); Red Blood Cell (RBC) Count 3.44 mill/uL (4.70-6.10); White Blood Cell (WBC) Count 6.3 thou/uL (4.8-10.8)
--- NOTE | 2017-11-07 07:11 | PDOC.PULCC ---
CCU Progress Note: Subj/Obj - Subjective Date: 11/07/17 Time: 07:10 Subjective: Sedated on propofol - Objective Allergies/Adverse Reactions: Allergies Allergy/AdvReac Type Severity Reaction Status Date / Time No Known Allergies Allergy Verified 11/04/17 23:27 Medications: Current Medications Albuterol/Ipratropium (Duoneb) 3 ml NEB [id number] [facility] Last Admin: 11/07/17 07:06 Dose: 3 ml Dextrose/Water (Dextrose 50%) 25 gm SLOW IVP PRN PRN PRN Reason: Hypoglycemia Enoxaparin Sodium (Lovenox) 40 mg SC 0900 [facility] Last Admin: 11/06/17 09:35 Dose: 40 mg Famotidine (Pepcid) 20 mg SLOW IVP Q12HR [facility] Last Admin: 11/06/17 21:05 Dose: 20 mg Glucagon (Glucagon) 1 mg IM PRN PRN PRN Reason: Hypoglycemia Dextrose/Water (D5w) 1,000 mls @ 0 mls/hr IV .Q0M PRN; As Directed PRN Reason: Hypoglycemia Sodium Chloride (Normal Saline 0.9%) 1,000 mls @ 75 mls/hr IV .[id number] [facility] Last Admin: 11/07/17 00:07 Dose: 1,000 mls Piperacillin Sod/Tazobactam (Sod 4.5 gm/ Sodium Chloride) 100 mls @ 200 mls/hr IVPB 0600,1200,1800,2359 [facility] Last Admin: 11/07/17 05:30 Dose: 100 mls Potassium Chloride 40 meq/ (Sodium Chloride) 270 mls @ 135 mls/hr IVPB ASDIR PRN PRN Reason: FOR SERUM K+ 2.5 - 3.5 Potassium Chloride 40 meq/ (Device) 100 mls @ 50 mls/hr IVPB ASDIR PRN PRN Reason: FOR SERUM K+ 2.5 - 3.5 Magnesium Sulfate 1 gm/ Sodium (Chloride) 102 mls @ 102 mls/hr IV PRN PRN PRN Reason: MAG LEVEL 1.4 - 2.0 Magnesium Sulfate 2 gm/ Device 100 mls @ 100 mls/hr IVPB ASDIR PRN PRN Reason: MAGNESIUM < 1.4 Potassium Phosphate 9 mmol/ (Sodium Chloride) 103 mls @ 25.75 mls/hr IVPB ASDIR PRN PRN Reason: Phosphate 1.0-1.8 Potassium Phosphate 12 mmol/ (Sodium Chloride) 254 mls @ 63.5 mls/hr IV ASDIR PRN PRN Reason: Serum phosphate 0.5-0.9 Potassium Phosphate 15 mmol/ (Sodium Chloride) 255 mls @ 63.75 mls/hr IV ASDIR PRN PRN Reason: Serum Phos < 0.5 Fentanyl Citrate (Fentanyl Bolus) 250 mls @ 0 mls/hr IVPB PRN PRN; As Directed PRN Reason: Breakthrough pain Stop: 12/04/17 22:50 Vancomycin HCl 2 gm/ Sodium (Chloride) 500 mls @ 250 mls/hr IVPB 0900,2100 [facility] Last Admin: 11/06/17 21:55 Dose: 500 mls Fentanyl Citrate 2,000 mcg/ (Sodium Chloride) 100 mls @ 0 mls/hr IV INF [facility] PRN Reason: As Directed Stop: 12/06/17 23:46 Last Admin: 11/07/17 02:41 Dose: 100 mls Insulin Human Lispro (Humalog) 0 units SC .MODERATE SLIDING SC PRN PRN Reason: Moderate Correctional Scale Last Admin: 11/07/17 04:19 Dose: 6 units Insulin Human NPH (Humulin N) 30 unit SC Q12HR [facility] Last Admin: 11/06/17 21:09 Dose: 30 unit Lorazepam (Ativan) 2 mg SLOW IVP Q2H PRN PRN Reason: Anxiety to achieve Rae 2-3 Stop: 12/04/17 22:50 Last Admin: 11/07/17 05:30 Dose: 2 mg Magnesium Oxide (Magnesium Oxide) 400 mg PO BIDPRN PRN PRN Reason: FOR SERUM MAG 1.4 - 2.0 Magnesium Oxide (Magnesium Oxide) 800 mg PO PRN PRN PRN Reason: FOR SERUM MAG < 1.4 Methylprednisolone Sodium Succinate (Solu-Medrol) 40 mg IVP Q6HR [facility] Last Admin: 11/07/17 05:30 Dose: 40 mg Miscellaneous Medication (Phos-Nak) 1 pkt PO TIDPRN PRN PRN Reason: FOR PHOS LEVEL 1.0 - 1.8 Miscellaneous Medication (Phos-Nak) 2 pkt PO TIDPRN PRN PRN Reason: FOR PHOS LEVEL 0.5 - 1.0 Miscellaneous Medication (Pharmacy To Dose) 1 each IVPB PRN PRN PRN Reason: EMPIRIC/RESP Morphine Sulfate (Morphine) 2 mg IVP Q2H PRN PRN Reason: Breakthrough pain Ccu Electrolyte (Replacement Protocol) 0 each FS PRN PRN PRN Reason: FOR ELECTROLYTE REPLACEMENT Discontinue Previous Narcotic Pain Medications And Benzodiazepines 1 each FS .ONE [facility] Stop: 12/04/17 22:50 Potassium Chloride (K-Dur) 40 meq PO ASDIR PRN PRN Reason: FOR SERUM K+ 2.5 - 3.5 Potassium Chloride (Klor-Con) 40 meq PER TUBE ASDIR PRN PRN Reason: FOR SERUM K+ 2.5-3.5 Propofol (Diprivan) 1,000 mg IV INF PRN; Protocol PRN Reason: TO ACHIEVE RAE SCORE 2-3 Stop: 12/04/17 22:50 Last Admin: 11/07/17 05:30 Dose: 1,000 mg MAR Reviewed: Yes Vital Signs and I&O: Vital Signs Temp 100.9 F H 11/07/17 04:00 Pulse 74 11/07/17 07:06 Resp 20 11/07/17 07:06 BP 134/63 11/06/17 16:12 Pulse Ox 95 11/07/17 07:06 Intake & Output 11/06/17 11/07/17 11/07/17 18:59 06:59 18:59 Intake Total 2897.8 2272.0 21 Output Total 1090 1590 110 Balance 1807.8 682.0 -89 Weight 293 lb 3.437 oz Intake: Intake, IV Amount 2401.8 1703.0 21 Fentanyl 20 MCG/ML 250 ml 45.8 98.0 21 @ Titrate IVPB INF [facility] Rx#:[id number] Piperacillin/Tazobactam 4 100 .5 gm In Sodium Chloride 0.9% 100 ml @ 200 mls/hr IVPB 0600,1200,1800,2359 [facility] Rx#:[id number] Propofol 1000 mg (See 370 328 Protocol) IV INF PRN Rx#: [id number] Sodium Chloride 0.9% 1, 1386 1277 000 ml @ 75 mls/hr IV . [id number] [facility] Rx#:[id number] Vancomycin HCl 2 gm In 500 Sodium Chloride 0.9% 500 ml @ 250 mls/hr IVPB 0900 ,2100 [facility] Rx#:[id number] Tube Feeding 436 339 Tube Irrigant 60 230 Output: Gastric Drainage 480 Output, Rosales 1090 1110 110 Other: Voiding Method Indwelling Catheter Indwelling Catheter # Bowel Movements 0 Vent Setting: SIMV 20/500, 50% Spontaneous Breathing Test: not done (poor oxygenation) CCU Progress Note: Exam - Physical Exam HEENT: PERRLA, sclera anicteric Neck: no nodes, no JVD Cardiovascular: RRR, no significant murmur Deviation from normal: poor air movement b Gastrointestinal: soft Deviation from normal: not tolerating TF Musculoskeletal: edema present Neurological: moves all 4 limbs Lymphatic: no nodes Deviation from normal: sedated Skin: no rash - Labs Result Diagrams: 11/07/17 04:15 11/06/17 03:30 Lab results: Laboratory Results - last 24 hr 11/06/17 11/06/17 11/06/17 07:40 07:53 10:30 WBC RBC Hgb Hct MCV MCH MCHC RDW Plt Count MPV Neutrophils % Lymphocytes % Monocytes % Eosinophils % Basophils % Neutrophils # Lymphocytes # Monocytes # Eosinophils # Basophils # Specimen Type ARTERIAL Puncture Site RRA Bicarbonate Actual 31.0 H ABG pH 7.33 L ABG pCO2 60.4 H* ABG pO2 83.1 ABG O2 Sat Calc/Marco 96.8 ABG O2 Content 15.2 L ABG Base Excess 3.8 H ABG Hematocrit 35.9 L ABG Hemoglobin 11.3 L ABG Oxyhemoglobin 95.2 ABG Carboxyhemoglobin 1.0 ABG Methemoglobin 0.6 ABG Deoxyhemoglobin 3.2 Scar Test POSITIVE A-a O2 Gradient 201.400 H Sodium 139 Potassium 4.1 Chloride 98 Ionized Calcium 1.1 L Mode of Support SIMV.PSV Mechanical Rate 25 Inspired O2 50 Tidal Volume 500 Pressure Support 10 PEEP or CPAP 8.0 POC Glucose 317 H Vancomycin Trough 13.6 11/06/17 11/06/17 11/07/17 16:16 21:05 04:15 WBC 6.3 RBC 3.44 L Hgb 11.0 L Hct 34.5 L MCV 100.0 H MCH 32.1 H MCHC 32.0 RDW 12.3 Plt Count 198 MPV 7.5 Neutrophils % 81.1 H Lymphocytes % 10.1 L Monocytes % 8.3 Eosinophils % 0.1 Basophils % 0.4 Neutrophils # 5.1 Lymphocytes # 0.6 L Monocytes # 0.5 Eosinophils # 0.0 Basophils # 0.0 Specimen Type Puncture Site Bicarbonate Actual ABG pH ABG pCO2 ABG pO2 ABG O2 Sat Calc/Marco ABG O2 Content ABG Base Excess ABG Hematocrit ABG Hemoglobin ABG Oxyhemoglobin ABG Carboxyhemoglobin ABG Methemoglobin ABG Deoxyhemoglobin Scar Test A-a O2 Gradient Sodium Potassium Chloride Ionized Calcium Mode of Support Mechanical Rate Inspired O2 Tidal Volume Pressure Support PEEP or CPAP POC Glucose 285 H 258 H Vancomycin Trough 11/07/17 04:19 WBC RBC Hgb Hct MCV MCH MCHC RDW Plt Count MPV Neutrophils % Lymphocytes % Monocytes % Eosinophils % Basophils % Neutrophils # Lymphocytes # Monocytes # Eosinophils # Basophils # Specimen Type Puncture Site Bicarbonate Actual ABG pH ABG pCO2 ABG pO2 ABG O2 Sat Calc/Marco ABG O2 Content ABG Base Excess ABG Hematocrit ABG Hemoglobin ABG Oxyhemoglobin ABG Carboxyhemoglobin ABG Methemoglobin ABG Deoxyhemoglobin Scar Test A-a O2 Gradient Sodium Potassium Chloride Ionized Calcium Mode of Support Mechanical Rate Inspired O2 Tidal Volume Pressure Support PEEP or CPAP POC Glucose 292 H Vancomycin Trough CCU Progress Note: A/P - Problems (1) Acute respiratory failure with hypoxia and hypercapnia Current Visit: Yes Status: Acute Code(s): J96.01 - ACUTE RESPIRATORY FAILURE WITH HYPOXIA; J96.02 - ACUTE RESPIRATORY FAILURE WITH HYPERCAPNIA (2) COPD exacerbation Current Visit: Yes Status: Acute Code(s): J44.1 - CHRONIC OBSTRUCTIVE PULMONARY DISEASE W (ACUTE) EXACERBATION (3) DM type 2 (diabetes mellitus, type 2) Current Visit: Yes Status: Chronic Qualifiers: Diabetes mellitus complication status: without complication Diabetes mellitus senior care insulin use: with ballpoint pen cartridge tester use Qualified Code(s): E11.9 - Type 2 diabetes mellitus without complications; Z79.4 - half-way (current) use of insulin; Z79.4 - half-way (current) use of insulin; Z79.4 - registered appraiser ( current) use of insulin; Z79.4 - half-way (current) use of insulin (4) Morbid obesity Current Visit: Yes Status: Chronic Code(s): E66.01 - MORBID (SEVERE) OBESITY DUE TO EXCESS CALORIES (5) COSME (obstructive sleep apnea) Current Visit: Yes Status: Chronic Code(s): G47.33 - OBSTRUCTIVE SLEEP APNEA (ADULT) (PEDIATRIC) - Time Spent with Patient Time: 30 min CC time - Plan Plan: CXR same Not weanable due to vent needs continue abx, steroids, nebs add reglan for high residuals
[2017-11-07 07:20] LABS: Actual Bicarbonate (HCO3a) 36.4 mEq/L (22-26); Base Excess (BEa) 9.1 mEq/L (0 (+/-) 2.5); Calcium, Ionized 1.1 mmol/L (1.12-1.30); Hematocrit-ABG 30.7 % (42.0-52.0); Hemoglobin (Hb) 10.2 g/dL (14.0-18.0); O2 Tension (PaO2) 78.6 mmHg (80.0-100.0); pH, Arterial 7.36 (7.35-7.45)
[2017-11-07 07:42] LABS: CO2 Tension 66.5 mmHg (35.0-45.0); Puncture Site RRA
[2017-11-07 07:43] LABS: ALV-art Gradient 161.825 (0-20)
[2017-11-07] MEDS: Metoclopramide HCl 10 MG/2 ML VIAL IVP PRN ×2 (08:08→21:08)
[2017-11-07] MEDS: Famotidine/PF 20 mg/2ml Vial SLOW IVP SCH ×2 (08:57→21:05)
[2017-11-07] MEDS: Acetaminophen 650 MG in Premix Bag 1 BAG IVPB PRN ×2 (08:57→14:39)
[2017-11-07] MEDS: Enoxaparin Sodium 40 MG/0.4 ML SYRINGE SC SCH (08:57)
[2017-11-07] MEDS: NPH, Human Insulin Isophane 300 UNIT/3 ML VIAL SC SCH ×2 (08:58→21:04)
[2017-11-07 09:00] LABS: Vancomycin, Trough 13.1 ug/mL
--- NOTE | 2017-11-07 09:02 | RAD ---
PORTABLE CHEST ONE VIEW: 11/07/2017 4:40 a.m. HISTORY: Respiratory failure. COMPARISON: Exam from the previous day. FINDINGS: A left-sided AICD remains in place. The heart size is enlarged but stable. Endotracheal tube and na sogastric tube remain in place. There is mild pulmonary vascular congestion with atelectatic change at the left lung base. No pneumothoraces are seen. POS: [facility]
--- NOTE | 2017-11-07 09:46 | PDOC.PN ---
- Subjective Encounter Start Date: 11/07/17 Encounter Start Time: 10:30 -: non-verbal Subjective: Intubated, no changes overnight. - Objective MAR Reviewed: Yes Vital Signs & Weight: Vital Signs (12 hours) Temp Pulse Resp BP Pulse Ox 11/07/17 08:00 102.6 F H 61 20 95 11/07/17 07:07 71 137/60 11/07/17 07:06 74 20 95 11/07/17 06:00 20 11/07/17 05:06 70 11/07/17 04:15 88 20 95 11/07/17 04:00 100.9 F H 20 11/07/17 02:00 20 11/07/17 01:38 76 20 96 11/07/17 01:36 81 11/06/17 23:44 20 11/06/17 23:00 100.1 F H 11/06/17 22:00 20 Weight Admit Weight 291 lb Weight 293 lb 3.437 oz Most Recent Monitor Data Heart Rate from ECG 61 NIBP 151/56 NIBP BP-Mean 71 Respiration from ECG 20 SpO2 96 I&O: 11/06/17 11/07/17 11/08/17 06:59 06:59 06:59 Intake Total 3597 5169.8 21 Output Total 1270 2680 1495 Balance 2327 2489.8 -1474 Result Diagrams: 11/07/17 04:15 11/06/17 03:30 Additional Labs: Accuchecks 11/07/17 11/06/17 11/06/17 04:19 21:05 16:16 POC Glucose 292 H 258 H 285 H 11/06/17 10:30 POC Glucose 317 H Phys Exam - Physical Examination on vent HEENT: moist MMs Respiratory: no wheezing, no rales, no rhonchi, clear to auscultation bilateral Cardiovascular: RRR, no significant murmur Gastrointestinal: soft, positive bowel sounds Musculoskeletal: no edema Neurological: non-focal Deviation from normal: sedated on vent Dx/Plan (1) Acute respiratory failure with hypoxia and hypercapnia Code(s): J96.01 - ACUTE RESPIRATORY FAILURE WITH HYPOXIA; J96.02 - ACUTE RESPIRATORY FAILURE WITH HYPERCAPNIA Status: Acute (2) COPD exacerbation Code(s): J44.1 - CHRONIC OBSTRUCTIVE PULMONARY DISEASE W (ACUTE) EXACERBATION Status: Acute (3) DM type 2 (diabetes mellitus, type 2) Status: Chronic Qualifiers: Diabetes mellitus complication status: without complication Diabetes mellitus usp insulin use: with usp use Qualified Code(s): E11.9 - Type 2 diabetes mellitus without complications; Z79.4 - predatory animal exterminator (current) use of insulin; Z79.4 - [facility] (current) use of insulin; Z79.4 - predatory animal exterminator ( current) use of insulin; Z79.4 - [facility] (current) use of insulin (4) Morbid obesity Code(s): E66.01 - MORBID (SEVERE) OBESITY DUE TO EXCESS CALORIES Status: Chronic (5) COSME (obstructive sleep apnea) Code(s): G47.33 - OBSTRUCTIVE SLEEP APNEA (ADULT) (PEDIATRIC) Status: Chronic (6) HLD (hyperlipidemia) Code(s): E78.5 - HYPERLIPIDEMIA, UNSPECIFIED Status: Chronic (7) HTN (hypertension) Code(s): I10 - ESSENTIAL (PRIMARY) HYPERTENSION Status: Chronic (8) CHF (congestive heart failure) Code(s): I50.9 - HEART FAILURE, UNSPECIFIED Status: Suspected Qualifiers: Congestive heart failure type: diastolic - Plan cont current plan of care, continue antibiotics, respiratory therapy, DVT proph w/lovenox, DVT proph w/SCDs Wean vent as able per pulmonology. * . - Discharge Day Encounter end time: 11:00
[2017-11-07] MEDS: Vancomycin HCl 1.75 GM in Sodium Chloride 0.9% 500 ML IVPB SCH (17:18)
[2017-11-08] MEDS: Piperacillin/Tazobactam 4.5 GM in Sodium Chloride 0.9% 100 ML IVPB SCH ×4 (00:36→17:30)
[2017-11-08] MEDS: Vancomycin HCl 1.75 GM in Sodium Chloride 0.9% 500 ML IVPB SCH ×3 (00:41→16:58)
[2017-11-08] MEDS: Propofol 1,000 MG/100 ML VIAL IV PRN ×5 (01:47→18:01)
[2017-11-08] MEDS: HumaLOG 300 UNITS/3 ML VIAL SC PRN ×4 (03:43→20:14)
[2017-11-08] MEDS: Acetaminophen 650 MG in Premix Bag 1 BAG IVPB PRN (04:04)
[2017-11-08] MEDS: Lorazepam 2 MG/ML VIAL SLOW IVP PRN ×3 (04:44→14:06)
[2017-11-08 08:00] LABS: Actual Bicarbonate (HCO3a) 36.7 mEq/L (22-26); Base Excess (BEa) 9.9 mEq/L (0 (+/-) 2.5); Calcium, Ionized 1.1 mmol/L (1.12-1.30); Hematocrit-ABG 29.8 % (42.0-52.0); Hemoglobin (Hb) 10.5 g/dL (14.0-18.0); O2 Tension (PaO2) 89.7 mmHg (80.0-100.0); pH, Arterial 7.39 (7.35-7.45)
[2017-11-08] MEDS: Famotidine/PF 20 mg/2ml Vial SLOW IVP SCH ×2 (08:00→20:13)
[2017-11-08] MEDS: Enoxaparin Sodium 40 MG/0.4 ML SYRINGE SC SCH (08:00)
[2017-11-08 08:01] LABS: CO2 Tension 62.2 mmHg (35.0-45.0); Puncture Site RRA
[2017-11-08] MEDS: NPH, Human Insulin Isophane 300 UNIT/3 ML VIAL SC SCH ×2 (09:13→20:13)
--- NOTE | 2017-11-08 09:34 | PDOC.PN ---
- Subjective Encounter Start Date: 11/08/17 Encounter Start Time: 09:30 Mr. Villafuerte was seen today in follow-up of acute respiratory failure. He is intubated and sedated. He was noted to have high residuals with his tube feeding , and he has been placed on NG tube to suction. - Objective MAR Reviewed: Yes Vital Signs & Weight: Vital Signs (12 hours) Temp Pulse Resp BP Pulse Ox 11/08/17 09:00 101.8 F H 11/08/17 08:00 102.4 F H 20 11/08/17 07:23 60 169/69 H 11/08/17 07:22 60 20 94 L 11/08/17 06:00 20 11/08/17 04:00 102 F H 11/08/17 03:46 20 11/08/17 03:35 81 20 95 11/08/17 02:00 20 11/08/17 00:50 60 20 94 L 11/08/17 00:00 99.7 F H 20 11/07/17 22:15 60 16 95 11/07/17 22:00 20 Weight Admit Weight 291 lb Weight 300 lb 4.313 oz Most Recent Monitor Data Heart Rate from ECG 60 NIBP 212/71 NIBP BP-Mean 95 Respiration from ECG 20 SpO2 96 I&O: 11/07/17 11/08/17 11/09/17 06:59 06:59 06:59 Intake Total 5169.8 3560.0 41.4 Output Total 2680 3730 115 Balance 2489.8 -170.0 -73.6 Result Diagrams: 11/07/17 04:15 11/06/17 03:30 Additional Labs: Accuchecks 11/08/17 11/07/17 11/07/17 03:39 21:04 16:13 POC Glucose 210 H 194 H 228 H 11/07/17 10:24 POC Glucose 271 H Phys Exam - Physical Examination HEENT: PERRLA + rhonchi, no rales Cardiovascular: RRR, no significant murmur Gastrointestinal: soft, non-tender, positive bowel sounds Musculoskeletal: edema present trace pedal edema Dx/Plan (1) Acute respiratory failure with hypoxia and hypercapnia Code(s): J96.01 - ACUTE RESPIRATORY FAILURE WITH HYPOXIA; J96.02 - ACUTE RESPIRATORY FAILURE WITH HYPERCAPNIA Status: Acute (2) COPD exacerbation Code(s): J44.1 - CHRONIC OBSTRUCTIVE PULMONARY DISEASE W (ACUTE) EXACERBATION Status: Acute (3) DM type 2 (diabetes mellitus, type 2) Status: Chronic Qualifiers: Diabetes mellitus complication status: without complication Diabetes mellitus parts counterman insulin use: with prison use Qualified Code(s): E11.9 - Type 2 diabetes mellitus without complications; Z79.4 - superintendent terminal (current) use of insulin; Z79.4 - [facility] (current) use of insulin; Z79.4 - superintendent terminal ( current) use of insulin; Z79.4 - superintendent terminal (current) use of insulin (4) Morbid obesity Code(s): E66.01 - MORBID (SEVERE) OBESITY DUE TO EXCESS CALORIES Status: Chronic (5) COSME (obstructive sleep apnea) Code(s): G47.33 - OBSTRUCTIVE SLEEP APNEA (ADULT) (PEDIATRIC) Status: Chronic (6) HTN (hypertension) Code(s): I10 - ESSENTIAL (PRIMARY) HYPERTENSION Status: Chronic - Plan * Acute on chronic respiratory failure- Patient continues to require mechanical ventilation- wean as per Pulmonary * HTN- blood pressure is elevated, will place on Vasotec scheduled IV until he is tolerating rube feeding better * DM- blood glucose- overall stable * Sepsis- presumed from Respiratory failure- he continues to have fever off and on- continue Vancomycin and Zosyn. Blood cultures as negative so far * DVT and GI prophylaxis
--- NOTE | 2017-11-08 10:13 | PRG ---
DATE OF SERVICE: 11/08/2017 Thirty-five minutes critical care time. SUBJECTIVE: The patient remains intubated on mechanical ventilation. He has had difficulty with fev er over the last 24 hours. OBJECTIVE: VITAL SIGNS: His temperature 101.8, as high as 103.2; pulse 60; blood pressure ranging between systo lic 115 to systolic 212 and diastolic 71. HEENT: Unremarkable. NECK: No JVD. LUNGS: Decreased wheezing. CARDIAC: S1 and S2 regular. ABDOMEN: Soft, nontender. He has high gastric residuals. EXTREMITIES: Edematous. LABORATORY DATA: No labs were done today, does not look like he has had chemistry since the . B lood sugars have continued to remain high. Chest x-ray demonstrates reasonably clear lung kim hayden aterally. ASSESSMENT: 1. Continued febrile illness, may have influenza given the fever. 2. Acute respiratory failure, requiring mechanical ventilation. 3. Diabetes mellitus with blood sugars out of control. 4. Elevated blood pressure. PLAN: 1. Add Levaquin. 2. Vancomycin added yesterday. 3. Check for flu status. 4. Increase Reglan. 5. Check labs today.
--- NOTE | 2017-11-08 10:28 | RAD ---
ONE VIEW CHEST: HISTORY: Respiratory distress. Ventilated patient. COMPARISON: 11/07/2017 FINDINGS: Portable upright chest is limited in evaluation due to underpenetration. An endotracheal tube is sofie ntified. The nasogastric tube cannot be adequately assessed. There is a left-sided defibrillator, [facility] is also limited in terms of evaluation. Lead position appears to be grossly unchanged. Stable cardiac silhouette. There appear to be pleural and parenchymal changes in the left lung base. The ri ght lung base is unremarkable. No obvious pneumothorax. IMPRESSION: Limited evaluation due to technique. Consider repeat imaging. Findings as above. POS: [facility]
[2017-11-08] MEDS: Enalaprilat Dihydrate 1.25 MG/ML VIAL SLOW IVP SCH ×2 (10:31→17:12)
[2017-11-08] MEDS: Metoclopramide HCl 10 MG/2 ML VIAL IVP SCH ×2 (11:27→17:04)
[2017-11-08] MEDS: hydrALAZINE 20 MG/ML VIAL SLOW IVP PRN ×2 (11:44→20:07)
[2017-11-08 12:54] LABS: Anion Gap 11 mmol/L (10-20); BUN (Urea Nitrogen) 23 mg/dL (8.4-25.7); Calc. Creatinine Clearance 189 mL/min (70-130); Calcium 8.1 mg/dL (7.8-10.44); Carbon Dioxide 36 mmol/L (22-29); Chloride 103 mmol/L (98-107); Estimated GFR-MDRD Greater than 90; Glucose 263 mg/dL (70-105); Magnesium 2.3 mg/dL (1.6-2.6); Phosphorus 3.6 mg/dL (2.3-4.7); Potassium 3.7 mmol/L (3.5-5.1); Sodium 146 mmol/L (136-145)
[2017-11-08] MEDS: Sodium Chloride 0.9% 1,000 ML IV SCH ×2 (14:04→21:14)
[2017-11-08 17:02] LABS: Vancomycin, Trough 18.5 ug/mL
[2017-11-08] MEDS: Morphine 2 MG/ML SYRINGE IVP PRN (21:12)
[2017-11-09] MEDS: Piperacillin/Tazobactam 4.5 GM in Sodium Chloride 0.9% 100 ML IVPB SCH ×2 (00:16→05:29)
[2017-11-09] MEDS: Vancomycin HCl 1.75 GM in Sodium Chloride 0.9% 500 ML IVPB SCH (00:18)
[2017-11-09] MEDS: Metoclopramide HCl 10 MG/2 ML VIAL IVP SCH ×4 (00:19→17:12)
[2017-11-09] MEDS: Enalaprilat Dihydrate 1.25 MG/ML VIAL SLOW IVP SCH ×4 (00:21→17:11)
[2017-11-09] MEDS: hydrALAZINE 20 MG/ML VIAL SLOW IVP PRN ×2 (03:02→12:06)
[2017-11-09] MEDS: Propofol 1,000 MG/100 ML VIAL IV PRN ×8 (03:03→23:02)
[2017-11-09] MEDS: fentaNYL Citrate/PF 2,000 MCG in Sodium Chloride 0.9% 60 ML IV SCH (03:04)
[2017-11-09 05:49] LABS: #Lymphocytes 1.6 thou/uL (1.20-3.40); #Monocytes 0.9 thou/uL (0.11-0.59); #Neutrophils 7.4 thou/uL (1.40-6.50); %Basophils 0.2 % (0.0-1.0); %Eosinophils 0.2 % (0.0-10.0); %Lymphocytes 15.8 % (21.0-51.0); %Monocytes 9.3 % (0.0-10.0); %Neutrophils 74.6 % (42.0-75.0); Hemoglobin 11.3 g/dL (14.0-18.0); Mean Corpuscular HGB CONC 31.5 g/dL (32.0-36.0); Mean Corpuscular Hemoglobin 31.7 pg (27.0-31.0); Mean Platelet Volume 7.4 fL (7.4-10.4); Platelet Count 192 thou/uL (130-400); RBC Distribution Width 12.1 % (11.5-14.5); Red Blood Cell (RBC) Count 3.58 mill/uL (4.70-6.10); White Blood Cell (WBC) Count 9.9 thou/uL (4.8-10.8)
[2017-11-09 06:05] LABS: BUN (Urea Nitrogen) 21 mg/dL (8.4-25.7); Calc. Creatinine Clearance 197 mL/min (70-130); Calcium 8.3 mg/dL (7.8-10.44); Estimated GFR-MDRD Greater than 90; Glucose 140 mg/dL (70-105)
[2017-11-09 06:17] LABS: Anion Gap 12 mmol/L (10-20); Carbon Dioxide 40 mmol/L (22-29); Chloride 103 mmol/L (98-107); Potassium 3.6 mmol/L (3.5-5.1); Sodium 151 mmol/L (136-145)
[2017-11-09 07:51] LABS: Actual Bicarbonate (HCO3a) 45.9 mEq/L (22-26); Base Excess (BEa) 18.3 mEq/L (0 (+/-) 2.5); Calcium, Ionized 1.1 mmol/L (1.12-1.30); Hematocrit-ABG 32.4 % (42.0-52.0); Hemoglobin (Hb) 11.3 g/dL (14.0-18.0); O2 Tension (PaO2) 430.7 mmHg (80.0-100.0); pH, Arterial 7.43 (7.35-7.45)
[2017-11-09 07:53] LABS: ALV-art Gradient 193.425 (0-20); CO2 Tension 71.1 mmHg (35.0-45.0); Puncture Site RR
[2017-11-09] MEDS: Sodium Chloride 0.45% 1,000 ML IV SCH ×2 (08:53→18:44)
[2017-11-09] MEDS: Enoxaparin Sodium 40 MG/0.4 ML SYRINGE SC SCH (08:54)
--- NOTE | 2017-11-09 08:55 | RAD ---
PORTABLE CHEST ONE VIEW: 11/09/2017 3:49 a.m. HISTORY: Respiratory failure. COMPARISON: Exam from the previous day. FINDINGS: Endotracheal and nasogastric tubes remain in place. A left-sided AICD is again seen. The heart is e nlarged. There is a left-sided moderate-sized pleural effusion. There is mild pulmonary vascular co ngestion. No pneumothoraces are seen. POS: [facility]
[2017-11-09] MEDS: acetaZOLAMIDE Sodium 500 mg Vial IVP SCH ×2 (08:57→21:14)
[2017-11-09] MEDS: Famotidine/PF 20 mg/2ml Vial SLOW IVP SCH (08:59)
[2017-11-09] MEDS ORDERED: cloNIDine 0.3mg/24 Hour PATCH TD SCH (09:00)
--- NOTE | 2017-11-09 09:11 | PRG ---
DATE OF SERVICE: 11/09/2017 PULMONARY OR CRITICAL CARE PROGRESS NOTE Thirty-five minutes critical care time. SUBJECTIVE: Mr. Villafuerte has been found to have influenza type A and that is the reason for his high fe vers. PHYSICAL EXAMINATION: VITAL SIGNS: On exam, his temperature is 99.5 but he had T-max of 102.0 yesterday, pulse is 71, bloo d pressure 181/75. A 24 hour intake is 4615, output 2516, weight 300 pounds. HEENT: Sclera anicteric. Oropharynx is clear. NECK: No JVD. LUNGS: Coarse rhonchi bilaterally. CARDIOVASCULAR: S1 and S2 regular. ABDOMEN: Soft, obese, still has elevated gastric residuals. EXTREMITIES: Edematous throughout. NEUROLOGIC: Neurologically, he moves all 4 extremities. LABORATORY DATA: Sodium 151, potassium 3.6, chloride 103, CO2 40, BUN 21, creatinine 0.7, glucose 14 0, pH 7.43, pCO2 of 71, pO2 of 430 that was on SIMV rate 16, tidal volume 500, PEEP 8, pressure suppo rt of 10, FiO2 100%. White blood cell count 9.9, hematocrit 36, and platelet count 192. ASSESSMENT: 1. Influenza type A. 2. Bilateral pneumonia. 3. Acute respiratory failure requiring mechanical ventilation. 4. Diabetes mellitus with elevated blood sugars. 5. Elevated blood pressure. PLAN: 1. Discontinue the vancomycin, Zosyn, but continue Levaquin. 2. Continue Reglan. 3. Not weanable at this time. 4. Add Diamox given the development of metabolic alkalosis with compensatory respiratory acidosis.
[2017-11-09] MEDS: NPH, Human Insulin Isophane 300 UNIT/3 ML VIAL SC SCH ×2 (09:13→21:20)
--- NOTE | 2017-11-09 10:50 | PDOC.PN ---
- Subjective Encounter Start Date: 11/09/17 Encounter Start Time: 10:48 Mr. Villafuerte was seen today in follow-up of acute on chronic respiratory failure. He is intubated but will awake, and open his eyes. - Objective MAR Reviewed: Yes Vital Signs & Weight: Vital Signs (12 hours) Temp Pulse Resp BP Pulse Ox 11/09/17 10:11 60 203/87 H 11/09/17 10:00 98.1 F 16 11/09/17 08:42 60 161/69 H 11/09/17 08:00 99.2 F 60 18 94 L 11/09/17 07:34 60 16 98 11/09/17 07:00 99.5 F 11/09/17 06:00 99.8 F H 16 11/09/17 05:28 188/76 H 11/09/17 04:00 102.0 F H 22 H 11/09/17 03:09 90 11/09/17 03:08 90 22 H 93 L 11/09/17 03:02 83 204/81 H 11/09/17 02:00 28 H 11/09/17 00:21 185/72 H 11/09/17 00:00 100.7 F H 19 Weight Admit Weight 291 lb Weight 300 lb 4.313 oz Most Recent Monitor Data Heart Rate from ECG 60 NIBP 203/87 NIBP BP-Mean 111 Respiration from ECG 21 SpO2 94 I&O: 11/08/17 11/09/17 11/10/17 06:59 06:59 06:59 Intake Total 3560.0 4615.9 341 Output Total 3730 2560 1435 Balance -170.0 2055.9 -1094 Result Diagrams: 11/09/17 05:30 11/09/17 05:30 Additional Labs: Accuchecks 11/09/17 11/08/17 11/08/17 05:28 16:16 09:55 POC Glucose 131 H 247 H 210 H Phys Exam - Physical Examination HEENT: PERRLA Respiratory: wheezing present + Faint wheezing and rhonchi bilaterally Cardiovascular: RRR, no significant murmur Gastrointestinal: soft, non-tender, positive bowel sounds Musculoskeletal: edema present 1+ edema Dx/Plan (1) Acute respiratory failure with hypoxia and hypercapnia Code(s): J96.01 - ACUTE RESPIRATORY FAILURE WITH HYPOXIA; J96.02 - ACUTE RESPIRATORY FAILURE WITH HYPERCAPNIA Status: Acute (2) COPD exacerbation Code(s): J44.1 - CHRONIC OBSTRUCTIVE PULMONARY DISEASE W (ACUTE) EXACERBATION Status: Acute (3) DM type 2 (diabetes mellitus, type 2) Status: Chronic Qualifiers: Diabetes mellitus complication status: without complication Diabetes mellitus correction insulin use: with correction use Qualified Code(s): E11.9 - Type 2 diabetes mellitus without complications; Z79.4 - penitentiary (current) use of insulin; Z79.4 - ferry terminal supervisor (current) use of insulin; Z79.4 - ferry terminal supervisor ( current) use of insulin; Z79.4 - ferry terminal supervisor (current) use of insulin (4) Morbid obesity Code(s): E66.01 - MORBID (SEVERE) OBESITY DUE TO EXCESS CALORIES Status: Chronic (5) COSME (obstructive sleep apnea) Code(s): G47.33 - OBSTRUCTIVE SLEEP APNEA (ADULT) (PEDIATRIC) Status: Chronic (6) HTN (hypertension) Code(s): I10 - ESSENTIAL (PRIMARY) HYPERTENSION Status: Chronic - Plan * COPD with exacerbation- he remains intubated. Antibiotics have been changed to Levaquin * DM- blood glucose is stable, continue basal insulin and SSI * HTN- blood pressure is elevated still- agree with Catapres Patch, and continue scheduled Vasotec * Nutrition- patient is still having high residuals- continue reglan, and try to re-start tube feeds when possible * Will change Pepcid to Protonix. * Influenza screen has returned positive- he is likely past the time for Tamiflu - and he is not tolerating tube feeds through- will treat symptomatically
[2017-11-09] MEDS: Lorazepam 2 MG/ML VIAL SLOW IVP PRN ×4 (10:54→18:02)
[2017-11-09] MEDS: HumaLOG 300 UNITS/3 ML VIAL SC PRN ×2 (15:36→21:22)
[2017-11-09] MEDS: Morphine 2 MG/ML SYRINGE IVP PRN (17:34)
[2017-11-09] MEDS ORDERED: Sterile Water 0 ML ONE (21:15)
[2017-11-09] MEDS ORDERED: Sterile Water 10 ML ONE (21:16)
[2017-11-09] MEDS: Pantoprazole 40 MG VIAL IVP SCH (21:20)
[2017-11-10] MEDS: Enalaprilat Dihydrate 1.25 MG/ML VIAL SLOW IVP SCH ×4 (00:11→17:19)
[2017-11-10] MEDS: Metoclopramide HCl 10 MG/2 ML VIAL IVP SCH ×4 (00:38→17:18)
[2017-11-10] MEDS: Propofol 1,000 MG/100 ML VIAL IV PRN ×8 (02:00→22:51)
[2017-11-10] MEDS: HumaLOG 300 UNITS/3 ML VIAL SC PRN ×3 (05:12→21:21)
[2017-11-10 05:31] LABS: Band 18 % (5-11); Eosinophils 1 % (0-10); Hemoglobin 11.5 g/dL (14.0-18.0); Lymphocytes 2 % (21-51); MDiff Complete? YES; Mean Corpuscular HGB CONC 31.1 g/dL (32.0-36.0); Mean Corpuscular Hemoglobin 31.3 pg (27.0-31.0); Mean Platelet Volume 8.1 fL (7.4-10.4); Monocytes 8 % (0-10); Neutrophil 68 % (42-75); PLT Morphology Comment Appears Adequate; Platelet Count 184 thou/uL (130-400); RBC Distribution Width 12.2 % (11.5-14.5); RBC Morphology Normal; Reactive Lymphocytes 3 % (0-10); Red Blood Cell (RBC) Count 3.68 mill/uL (4.70-6.10); White Blood Cell (WBC) Count 9.2 thou/uL (4.8-10.8)
[2017-11-10 06:23] LABS: Anion Gap 13 mmol/L (10-20); BUN (Urea Nitrogen) 21 mg/dL (8.4-25.7); Calc. Creatinine Clearance 198 mL/min (70-130); Calcium 8.5 mg/dL (7.8-10.44); Carbon Dioxide 36 mmol/L (22-29); Chloride 99 mmol/L (98-107); Estimated GFR-MDRD Greater than 90; Glucose 185 mg/dL (70-105); Potassium 3.7 mmol/L (3.5-5.1); Sodium 144 mmol/L (136-145)
[2017-11-10 07:22] LABS: Actual Bicarbonate (HCO3a) 36.8 mEq/L (22-26); Base Excess (BEa) 9.1 mEq/L (0 (+/-) 2.5); Calcium, Ionized 1.2 mmol/L (1.12-1.30); Hemoglobin (Hb) 11.1 g/dL (14.0-18.0); O2 Tension (PaO2) 105.1 mmHg (80.0-100.0); pH, Arterial 7.35 (7.35-7.45)
[2017-11-10 07:23] LABS: Puncture Site RR
[2017-11-10] MEDS: Pantoprazole 40 MG VIAL IVP SCH ×2 (08:40→20:21)
[2017-11-10] MEDS: acetaZOLAMIDE Sodium 500 mg Vial IVP SCH ×2 (08:40→20:21)
[2017-11-10] MEDS: Sterile Water 10 ML VIAL FS SCH ×2 (08:40→20:21)
[2017-11-10] MEDS: Enoxaparin Sodium 40 MG/0.4 ML SYRINGE SC SCH (08:40)
[2017-11-10] MEDS: NPH, Human Insulin Isophane 300 UNIT/3 ML VIAL SC SCH ×2 (08:41→21:20)
--- NOTE | 2017-11-10 09:13 | RAD ---
PORTABLE CHEST 1 VIEW: DATE: 11/10/17. TIME: 5:02 a.m. HISTORY: Respiratory failure. FINDINGS/IMPRESSION: No significant interval change is seen since the previous day's exam. POS: [facility]
[2017-11-10] MEDS: Lorazepam 2 MG/ML VIAL SLOW IVP PRN ×4 (10:16→22:51)
--- NOTE | 2017-11-10 10:16 | PDOC.PN ---
- Subjective Encounter Start Date: 11/10/17 Encounter Start Time: 10:14 Mr. Villafuerte was seen today in follow-up of Respiratory failure due to pneumonia. He remains intubated, he is moving all extremities. - Objective MAR Reviewed: Yes Vital Signs & Weight: Vital Signs (12 hours) Temp Pulse Resp BP Pulse Ox 11/10/17 08:00 97.9 F 19 11/10/17 07:58 60 155/78 H 11/10/17 06:00 26 H 11/10/17 05:08 142/63 H 11/10/17 04:00 98.0 F 16 11/10/17 02:29 62 16 98 11/10/17 02:00 16 11/10/17 00:11 134/59 L 11/10/17 00:00 97.7 F 16 11/09/17 22:31 63 20 92 L Weight Admit Weight 291 lb Weight 290 lb 12.635 oz Most Recent Monitor Data Heart Rate from ECG 82 NIBP 184/93 NIBP BP-Mean 112 Respiration from ECG 21 SpO2 96 I&O: 11/09/17 11/10/17 11/11/17 06:59 06:59 06:59 Intake Total 4641.7 2149.3 Output Total 2560 6215 260 Balance 2081.7 -4065.7 -260 Result Diagrams: 11/10/17 04:30 11/10/17 05:35 Additional Labs: Accuchecks 11/10/17 11/09/17 11/09/17 04:35 21:13 15:34 POC Glucose 168 H 204 H 206 H 11/09/17 11/08/17 10:12 20:13 POC Glucose 176 H 223 H Phys Exam - Physical Examination HEENT: PERRLA + rhonchi and coarse breath sounds Cardiovascular: RRR, no significant murmur Gastrointestinal: soft, non-tender, positive bowel sounds Musculoskeletal: no edema Dx/Plan (1) Acute respiratory failure with hypoxia and hypercapnia Code(s): J96.01 - ACUTE RESPIRATORY FAILURE WITH HYPOXIA; J96.02 - ACUTE RESPIRATORY FAILURE WITH HYPERCAPNIA Status: Acute (2) COPD exacerbation Code(s): J44.1 - CHRONIC OBSTRUCTIVE PULMONARY DISEASE W (ACUTE) EXACERBATION Status: Acute (3) DM type 2 (diabetes mellitus, type 2) Status: Chronic Qualifiers: Diabetes mellitus complication status: without complication Diabetes mellitus long-term insulin use: with terminal makeup operator use Qualified Code(s): E11.9 - Type 2 diabetes mellitus without complications; Z79.4 - terminal makeup operator (current) use of insulin; Z79.4 - intermediate (current) use of insulin; Z79.4 - intermediate ( current) use of insulin; Z79.4 - intermediate (current) use of insulin (4) Morbid obesity Code(s): E66.01 - MORBID (SEVERE) OBESITY DUE TO EXCESS CALORIES Status: Chronic (5) COSME (obstructive sleep apnea) Code(s): G47.33 - OBSTRUCTIVE SLEEP APNEA (ADULT) (PEDIATRIC) Status: Chronic (6) HTN (hypertension) Code(s): I10 - ESSENTIAL (PRIMARY) HYPERTENSION Status: Chronic - Plan * Pneumonia and Acute respiratory failure- He is not yet weanable- continue ventilator support * Continue Levaquin IV * He continues to have large residuals from tube feeding- continue Reglan, and if this does not resolve soon, then will need alternate means of nutrition * HTN- blood pressure is better. * DM- blood glucose is stable
[2017-11-10] MEDS: Sodium Chloride 0.45% 1,000 ML IV SCH (10:23)
--- NOTE | 2017-11-10 10:45 | PRG ---
DATE OF SERVICE: 11/10/2017 PULMONARY CRITICAL CARE PROGRESS NOTE Thirty five minutes critical care time. SUBJECTIVE: The patient remains intubated on mechanical ventilation. There have been no acute vazquez es in his care overnight. PHYSICAL EXAMINATION: VITAL SIGNS: His temperature is 98.0, pulse 60, blood pressure 155/78. He is on no vasopressors at this time. Total intake for 24 hours 2149, output 6215. Weight 290 pounds. HEENT: Unremarkable. NECK: No JVD. CHEST: Fairly clear. CARDIOVASCULAR: S1, S2 regular. ABDOMEN: Soft. EXTREMITIES: Edematous throughout. LABORATORY DATA: Sodium 144, potassium 3.7, chloride 99, CO2 36, BUN 21, creatinine 0.7, glucose 185 . White blood cell count 9.2, hemoglobin 11.5, hematocrit 37.1, platelet count 184. PH 7.35, pCO2 6 8, pO2 105 on SIMV rate 16, tidal volume 500, PEEP 8, pressure support 10, FiO2 50%. Chest x-ray kourtney ws small left pleural effusion, otherwise x-ray is beginning to clear. ASSESSMENT: 1. Acute respiratory failure requiring mechanical ventilation. 2. Influenza type A. 3. Bilateral pneumonia. 4. Diabetes mellitus with elevated blood sugars. 5. Fluid overloaded. PLAN: 1. Continue the Diamox. 2. Continue Levaquin. 3. Decrease FiO2. 4. Hopefully starting to wean aggressively in the next couple of days. 5. No family has been at the bedside. I will try to get hold of his sometime.
[2017-11-10] MEDS: Morphine 2 MG/ML SYRINGE IVP PRN (11:30)
[2017-11-11] MEDS: Metoclopramide HCl 10 MG/2 ML VIAL IVP SCH ×5 (00:14→23:08)
[2017-11-11] MEDS: Enalaprilat Dihydrate 1.25 MG/ML VIAL SLOW IVP SCH ×3 (00:14→11:32)
[2017-11-11] MEDS: Sodium Chloride 0.45% 1,000 ML IV SCH ×2 (00:38→11:57)
[2017-11-11] MEDS: Propofol 1,000 MG/100 ML VIAL IV PRN ×9 (01:34→22:39)
[2017-11-11 04:30] LABS: #Eosinphils 0.1 thou/uL (0.0-0.7); #Lymphocytes 0.9 thou/uL (1.20-3.40); #Monocytes 0.7 thou/uL (0.11-0.59); #Neutrophils 7.9 thou/uL (1.40-6.50); %Basophils 0.4 % (0.0-1.0); %Eosinophils 0.7 % (0.0-10.0); %Lymphocytes 9.5 % (21.0-51.0); %Monocytes 7.1 % (0.0-10.0); %Neutrophils 82.2 % (42.0-75.0); Hemoglobin 11.9 g/dL (14.0-18.0); Mean Corpuscular HGB CONC 31.9 g/dL (32.0-36.0); Mean Corpuscular Hemoglobin 31.4 pg (27.0-31.0); Mean Corpuscular Volume 98.5 fl (80.0-94.0); Platelet Count 214 thou/uL (130-400); Red Blood Cell (RBC) Count 3.81 mill/uL (4.70-6.10); White Blood Cell (WBC) Count 9.6 thou/uL (4.8-10.8)
[2017-11-11 04:42] LABS: Anion Gap 12 mmol/L (10-20); BUN (Urea Nitrogen) 18 mg/dL (8.4-25.7); Calc. Creatinine Clearance 222 mL/min (70-130); Calcium 9.1 mg/dL (7.8-10.44); Carbon Dioxide 30 mmol/L (22-29); Chloride 102 mmol/L (98-107); Estimated GFR-MDRD Greater than 90; Glucose 116 mg/dL (70-105); Potassium 3.5 mmol/L (3.5-5.1); Sodium 140 mmol/L (136-145)
[2017-11-11 08:10] LABS: Actual Bicarbonate (HCO3a) 29.8 mEq/L (22-26); Base Excess (BEa) 3.4 mEq/L (0 (+/-) 2.5); CO2 Tension 53.5 mmHg (35.0-45.0); Calcium, Ionized 1.2 mmol/L (1.12-1.30); Hematocrit-ABG 35.4 % (42.0-52.0); Hemoglobin (Hb) 11.2 g/dL (14.0-18.0); O2 Tension (PaO2) 72.9 mmHg (80.0-100.0); pH, Arterial 7.36 (7.35-7.45)
[2017-11-11 08:11] LABS: ALV-art Gradient 151.025 (0-20); Puncture Site RRA
[2017-11-11] MEDS: Enoxaparin Sodium 40 MG/0.4 ML SYRINGE SC SCH (09:00)
[2017-11-11] MEDS: Lorazepam 2 MG/ML VIAL SLOW IVP PRN ×2 (09:00→15:00)
[2017-11-11] MEDS: Pantoprazole 40 MG VIAL IVP SCH (09:00)
[2017-11-11] MEDS: NPH, Human Insulin Isophane 300 UNIT/3 ML VIAL SC SCH ×2 (09:01→21:28)
[2017-11-11] MEDS: acetaZOLAMIDE Sodium 500 mg Vial IVP SCH (09:01)
[2017-11-11] MEDS: Sterile Water 10 ML VIAL FS SCH (09:01)
--- NOTE | 2017-11-11 10:54 | PDOC.PN ---
- Subjective Encounter Start Date: 11/11/17 Encounter Start Time: 10:53 Mr. Villafuerte was seen today in follow-up of acute respiratory failure. He is intubated and sedated. - Objective MAR Reviewed: Yes Vital Signs & Weight: Vital Signs (12 hours) Temp Pulse Resp BP Pulse Ox 11/11/17 10:47 85 128/61 11/11/17 10:45 86 30 H 95 11/11/17 10:00 31 H 11/11/17 08:00 98.9 F 85 28 H 94 L 11/11/17 07:25 84 152/72 H 11/11/17 07:22 87 29 H 94 L 11/11/17 07:00 98.9 F 11/11/17 06:00 30 H 11/11/17 05:51 176/74 H 11/11/17 04:00 99.1 F 25 H 11/11/17 02:16 77 27 H 95 11/11/17 02:00 27 H 11/11/17 00:14 171/74 H 11/11/17 00:00 98.7 F 27 H Weight Admit Weight 291 lb Weight 288 lb 9.361 oz Most Recent Monitor Data Heart Rate from ECG 85 NIBP 128/61 NIBP BP-Mean 81 Respiration from ECG 25 SpO2 94 I&O: 11/10/17 11/11/17 11/12/17 06:59 06:59 06:59 Intake Total 2149.3 2710 Output Total 6215 2455 840 Balance -4065.7 255 -840 Result Diagrams: 11/11/17 04:04 11/11/17 04:04 Additional Labs: Accuchecks 11/11/17 11/11/17 11/10/17 09:52 03:42 21:20 POC Glucose 111 H 113 H 152 H 11/10/17 15:20 POC Glucose 138 H Phys Exam - Physical Examination HEENT: PERRLA Respiratory: no wheezing + rhonchi bilaterally Cardiovascular: RRR, no significant murmur Gastrointestinal: soft, non-tender, positive bowel sounds Musculoskeletal: edema present Dx/Plan (1) Acute respiratory failure with hypoxia and hypercapnia Code(s): J96.01 - ACUTE RESPIRATORY FAILURE WITH HYPOXIA; J96.02 - ACUTE RESPIRATORY FAILURE WITH HYPERCAPNIA Status: Acute (2) COPD exacerbation Code(s): J44.1 - CHRONIC OBSTRUCTIVE PULMONARY DISEASE W (ACUTE) EXACERBATION Status: Acute (3) DM type 2 (diabetes mellitus, type 2) Status: Chronic Qualifiers: Diabetes mellitus complication status: without complication Diabetes mellitus fdc insulin use: with music engraver use Qualified Code(s): E11.9 - Type 2 diabetes mellitus without complications; Z79.4 - microsoft net developer (current) use of insulin; Z79.4 - detention (current) use of insulin; Z79.4 - microsoft net developer ( current) use of insulin; Z79.4 - detention (current) use of insulin (4) Morbid obesity Code(s): E66.01 - MORBID (SEVERE) OBESITY DUE TO EXCESS CALORIES Status: Chronic (5) COSME (obstructive sleep apnea) Code(s): G47.33 - OBSTRUCTIVE SLEEP APNEA (ADULT) (PEDIATRIC) Status: Chronic (6) HTN (hypertension) Code(s): I10 - ESSENTIAL (PRIMARY) HYPERTENSION Status: Chronic - Plan * Acute respiratory failure due to COPD exacerbation and Pneumonia. He remain on the ventilator. Continue Levaquin and Solumdrol IV * Further recommendation from Critical Care * DM- blood glucose is stable * HTN- blood pressure is stable * Nutritional Support- would consider trial of tube feeds, low rate. * Serum sodium and bicarb levels have improved
--- NOTE | 2017-11-11 14:30 | RAD ---
PORTABLE CHEST 1 VIEW: DATE: 11/11/17. TIME: 5:07 a.m. HISTORY: Respiratory failure. FINDINGS: No significant interval change since the previous day's exam. Endotracheal and nasogastric tubes rem ain in place. Left-sided AID is unchanged in position. A moderate left-sided pleural effusion and m ild pulmonary vascular congestion are again seen. POS: [facility]
--- NOTE | 2017-11-11 15:00 | PRG ---
DATE OF SERVICE: 11/11/2017 SERVICE: Pulmonary Medicine. INTERVAL HISTORY: The patient is doing fine from a cardiovascular and respiratory standpoint. Oxygen requirements have actually improved over the last 24 hours as the patient started to auto diurese. Otherwise, there has been no interval change to his condition. Whenever he is on a sedation holiday , he becomes fairly agitated. He has a very protracted expiratory phase and he needs to breathe slowly but whenever he wakes up, he becomes tachypneic, which puts him in increasing failure. PHYSICAL EXAMINATION: VITAL SIGNS: Afebrile with T-max 99.1, pulse 85, blood pressure 126/68, respirations 27, saturation 94% on room air. GENERAL: The patient is awake, alert, no apparent distress. LUNGS: Decent air entry with prolonged expiratory phase. Wheezing is evident as are crackles. No rhonchi are appreciated. HEART: Normal rate and regular. ABDOMEN: Soft, nontender, nondistended. Bowel sounds are positive. MUSCULOSKELETAL: No cyanosis or clubbing. There is trace to 1+ pitting throughout. GENITOURINARY: Rosales catheter in place. NEUROLOGIC: Grossly nonfocal. LABORATORY DATA: WBC 9.6, hemoglobin 11.9, and platelets 214,000. Basic metabolic profile is otherwise unremarkable. A pH 7.36, pCO2 53, pO2 72 on 40% FiO2 and a PEEP of 8. Basic metabolic profile is essentially unremarkable with potassium of 3.5. Urinalysis is unremarkable. Vancomycin trough 18.5. Influenza A is positive and B is negative. Blood cultures x2 remain negative. IMAGING: Chest x-ray demonstrates patchy alveolar infiltrates throughout the bilateral lung kim. Pulmonary vascular congestion is also noted. Enlarged cardiac silhouette. AICD in place. ASSESSMENT: 1. Acute hypoxic respiratory failure. 2. Community acquired pneumonia secondary to influenza A. 3. Acute on chronic diastolic heart failure. 4. Type 2 diabetes mellitus. PLAN: We will replace potassium and continue our efforts at diuresing the patient. He has completed a full course of antibiotics and these will be discontinued at this time. Hopefully, we will be in a position to have him extubated in 24-48 hours, but this really is dependent on his oxygen requirements, which are improving. Critical care time: 30 minutes. [facility]
[2017-11-11] MEDS ORDERED: Sodium Chloride 0.45% 1,000 ML IV SCH (15:02)
[2017-11-11] MEDS ORDERED: Furosemide 20 MG/2 ML VIAL SLOW IVP SCH (15:15)
[2017-11-11] MEDS ORDERED: Potassium Chloride 40 MEQ in Sodium Chloride 0.9% 500 ML IVPB ONE (15:15)
[2017-11-11] MEDS: Carvedilol 25 MG TAB PO SCH (16:19)
[2017-11-11] MEDS: fentaNYL Citrate/PF 2,000 MCG in Sodium Chloride 0.9% 60 ML IV SCH (21:24)
[2017-11-12] MEDS: Propofol 1,000 MG/100 ML VIAL IV PRN ×6 (02:03→23:07)
[2017-11-12 05:54] LABS: #Eosinphils 0.3 thou/uL (0.0-0.7); #Lymphocytes 1.9 thou/uL (1.20-3.40); #Monocytes 0.7 thou/uL (0.11-0.59); #Neutrophils 6.8 thou/uL (1.40-6.50); %Basophils 0.1 % (0.0-1.0); %Eosinophils 2.9 % (0.0-10.0); %Lymphocytes 19.3 % (21.0-51.0); %Neutrophils 70.7 % (42.0-75.0); Hemoglobin 12.5 g/dL (14.0-18.0); Mean Corpuscular HGB CONC 32.6 g/dL (32.0-36.0); Mean Corpuscular Hemoglobin 31.7 pg (27.0-31.0); Mean Corpuscular Volume 97.1 fl (80.0-94.0); Mean Platelet Volume 8.5 fL (7.4-10.4); Platelet Count 227 thou/uL (130-400); Red Blood Cell (RBC) Count 3.95 mill/uL (4.70-6.10); White Blood Cell (WBC) Count 9.7 thou/uL (4.8-10.8)
[2017-11-12 06:14] LABS: Anion Gap 11 mmol/L (10-20); BUN (Urea Nitrogen) 16 mg/dL (8.4-25.7); Calc. Creatinine Clearance 224 mL/min (70-130); Calcium 8.8 mg/dL (7.8-10.44); Carbon Dioxide 30 mmol/L (22-29); Chloride 103 mmol/L (98-107); Estimated GFR-MDRD Greater than 90; Glucose 78 mg/dL (70-105); Sodium 141 mmol/L (136-145)
[2017-11-12 06:17] LABS: Critical Call Chemistry REHAB.JMB@0616; Potassium 2.6 mmol/L (3.5-5.1)
[2017-11-12] MEDS: Metoclopramide HCl 10 MG/2 ML VIAL IVP SCH ×4 (06:51→23:36)
[2017-11-12] MEDS: Furosemide 20 MG/2 ML VIAL SLOW IVP SCH (06:52)
[2017-11-12 07:26] LABS: Actual Bicarbonate (HCO3a) 29.4 mEq/L (22-26); Base Excess (BEa) 3.6 mEq/L (0 (+/-) 2.5); CO2 Tension 49.7 mmHg (35.0-45.0); Calcium, Ionized 1.2 mmol/L (1.12-1.30); Hematocrit-ABG 37.6 % (42.0-52.0); O2 Tension (PaO2) 119.3 mmHg (80.0-100.0); Puncture Site RRA; pH, Arterial 7.39 (7.35-7.45)
[2017-11-12 07:27] LABS: ALV-art Gradient 180.575 (0-20)
[2017-11-12] MEDS: Potassium Chloride 40 MEQ in Sodium Chloride 0.9% 250 ML 250 ML IVPB SCH ×2 (07:58→12:44)
[2017-11-12] MEDS: Carvedilol 25 MG TAB PO SCH ×2 (07:59→10:55)
[2017-11-12] MEDS: Enoxaparin Sodium 40 MG/0.4 ML SYRINGE SC SCH (08:27)
[2017-11-12] MEDS: Pantoprazole 40 MG VIAL IVP SCH (08:27)
--- NOTE | 2017-11-12 08:59 | RAD ---
FRONTAL VIEW CHEST: Indication: Ventilated ICU patient. Follow up. FINDINGS: No significant interval change from 1-18 exam. There remains a pleural based density at the inferio r left chest. Numerous artifacts limit detail, and this does obscure a portion of the supportive line s and tubes. IMPRESSION: Grossly stable chest, within limitations. POS: [facility]
[2017-11-12] MEDS: NPH, Human Insulin Isophane 300 UNIT/3 ML VIAL SC SCH ×2 (10:05→21:22)
[2017-11-12] MEDS ORDERED: Fentanyl 100 MCG/2 ML VIAL SLOW IVP PRN (10:45)
[2017-11-12] MEDS ORDERED: Senokot S 8.6-50 MG TAB PO SCH (11:30)
[2017-11-12] MEDS: Lorazepam 2 MG/ML VIAL SLOW IVP PRN ×3 (11:40→20:01)
--- NOTE | 2017-11-12 11:59 | PRG ---
DATE OF SERVICE: 11/12/2017 SERVICE: Pulmonary Medicine. INTERVAL HISTORY: The patient is doing well from a respiratory standpoint. He continues to have a prolonged expiratory phase. He put over a liter of fluid out from his NG tube yesterday. That being said, he denies having any abdominal discomfort, constipation, or nausea. He is otherwise in his usual state of health and he has no specific complaints. We backed off his fentanyl quite a bit and we are relying mostly on propofol for sedation. PHYSICAL EXAMINATION: VITAL SIGNS: Afebrile, pulse 98, blood pressure 138/68, respirations 11, saturation 92% on 40% FiO2 and PEEP of 8. GENERAL: Patient is awake, alert, no apparent distress. LUNGS: Decent air entry. There is prolonged expiratory phase with polyphonic wheezing. Dependent crackles are minimal. HEART: Normal rate, regular. ABDOMEN: Soft. Distended. Bowel sounds are hypoactive. No rebound or guarding is appreciated. MUSCULOSKELETAL: No cyanosis or clubbing. There is 1-2+ pitting throughout. GENITOURINARY: Rosales catheter in place. NEUROLOGIC: Grossly nonfocal. LABORATORY DATA: WBC 9.7, hemoglobin 12.5, and platelets 227,000. A pH 7.39, pCO2 49, pO2 119 on 50% FiO2 and a PEEP of 8. Potassium 2.6. Basic metabolic profile is otherwise unremarkable. His sodium is stable at 141. Influenza A is positive, B is negative. Blood cultures x2 are negative to date. IMAGING: Chest x-ray demonstrates no significant interval change. There is a pleural based density in the anterior left chest. Multiple overlying artifacts are present. This film was really underpenetrated. On the second film, the endotracheal tube is in good position. An enteric catheter courses below the level of the diaphragm. ASSESSMENT: 1. Acute hypoxic respiratory failure. 2. Community-acquired pneumonia secondary to influenza A. 3. Acute on chronic diastolic heart failure. 4. Type 2 diabetes mellitus. PLAN: We will replace the potassium, but unfortunately since his gut is not working we have to rely on IV route. Tamiflu will be continued, but all the other antibiotics will be discontinued as he has completed a full course of those antibiotics. We will continue our steroids and frequent nebulized medication. At this point, the patient is clinically improving, though he is not quite ready for extubation. When we do this, we may need to go directly to BiPAP and gently decrease the support as time goes on. We will initiate a bowel regimen today and see if we can minimize the use of fentanyl. Critical care time: 30 minutes. MTDD
--- NOTE | 2017-11-12 14:08 | RAD ---
PORTABLE AP ABDOMEN: Indication: Abdominal distention. FINDINGS: Bowel gas pattern is nonspecific but without overt evidence of obstruction. There is partial visualiz ation of the AICD involving the heart. There is mild cardiomegaly. Respiratory motion artifact slight ly limits image detail of the lung bases. No definite acute osseous abnormality is evident. There is scattered degenerative change. IMPRESSION: No diana evidence of obstruction. POS: [facility]
--- NOTE | 2017-11-12 16:57 | PDOC.PN ---
- Subjective Encounter Start Date: 11/12/17 Encounter Start Time: 16:56 Patient seen and examined. No new complaints. No overnight events - Objective MAR Reviewed: Yes Vital Signs & Weight: Vital Signs (12 hours) Temp Pulse Resp BP Pulse Ox 11/12/17 16:00 98.8 F 20 11/12/17 15:04 85 21 H 111/64 94 L 11/12/17 14:00 20 11/12/17 12:00 99 F 21 H 11/12/17 11:32 95 17 93 L 11/12/17 11:30 99 130/72 11/12/17 10:00 21 H 11/12/17 08:00 99 F 103 H 21 H 92 L 11/12/17 06:58 106 H 126/70 11/12/17 06:55 105 H 21 H 95 11/12/17 06:00 22 H Weight Admit Weight 291 lb Weight 268 lb 8.368 oz Most Recent Monitor Data Heart Rate from ECG 95 NIBP 134/73 NIBP BP-Mean 96 Respiration from ECG 22 SpO2 96 I&O: 11/11/17 11/12/17 11/13/17 06:59 06:59 06:59 Intake Total 2710 2631 33.3 Output Total 2455 5180 1490 Balance 255 -9089 -1456.7 Result Diagrams: 11/12/17 04:46 11/12/17 04:46 Additional Labs: Accuchecks 11/12/17 11/12/17 15:58 10:05 POC Glucose 129 H 84 Phys Exam - Physical Examination sedated Neck: no JVD scattered rhonchi Cardiovascular: no significant murmur Gastrointestinal: non-tender Musculoskeletal: pulses present Dx/Plan (1) Acute respiratory failure with hypoxia and hypercapnia Code(s): J96.01 - ACUTE RESPIRATORY FAILURE WITH HYPOXIA; J96.02 - ACUTE RESPIRATORY FAILURE WITH HYPERCAPNIA Status: Acute (2) COPD exacerbation Code(s): J44.1 - CHRONIC OBSTRUCTIVE PULMONARY DISEASE W (ACUTE) EXACERBATION Status: Acute (3) DM type 2 (diabetes mellitus, type 2) Status: Chronic Qualifiers: Diabetes mellitus complication status: without complication Diabetes mellitus residential insulin use: with terminal makeup operator use Qualified Code(s): E11.9 - Type 2 diabetes mellitus without complications; Z79.4 - terminal block assembler (current) use of insulin; Z79.4 - terminal block assembler (current) use of insulin; Z79.4 - terminal block assembler ( current) use of insulin; Z79.4 - longterm (current) use of insulin (4) HLD (hyperlipidemia) Code(s): E78.5 - HYPERLIPIDEMIA, UNSPECIFIED Status: Chronic (5) HTN (hypertension) Code(s): I10 - ESSENTIAL (PRIMARY) HYPERTENSION Status: Chronic - Plan * * Pneumonia- due to Influenza A HI- his PCR came back positive- He has been started on Tamiflu yesterday * He is now in the ICU on Bipap * Continue supportive care * Continue Empiric antibiotics * Continue Dounebs and steroids- further recommendations per [facility] * DM- blood glucose is stable.
[2017-11-12] MEDS ORDERED: Potassium Chloride 20 MEQ in Sodium Chloride 0.9% 250 ML 250 ML IVPB SCH (18:00)
[2017-11-12] MEDS: Senokot S 8.6-50 MG TAB PO SCH (20:49)
[2017-11-13] MEDS: Propofol 1,000 MG/100 ML VIAL IV PRN ×8 (01:25→22:10)
[2017-11-13] MEDS: Lorazepam 2 MG/ML VIAL SLOW IVP PRN ×4 (02:05→14:33)
[2017-11-13 03:59] LABS: #Basophils 0.1 thou/uL (0.0-0.2); #Eosinphils 0.3 thou/uL (0.0-0.7); #Lymphocytes 1.5 thou/uL (1.20-3.40); #Monocytes 0.6 thou/uL (0.11-0.59); #Neutrophils 6.3 thou/uL (1.40-6.50); %Basophils 0.6 % (0.0-1.0); %Eosinophils 3.3 % (0.0-10.0); %Monocytes 6.9 % (0.0-10.0); %Neutrophils 72.2 % (42.0-75.0); Hemoglobin 11.7 g/dL (14.0-18.0); Mean Corpuscular HGB CONC 33.4 g/dL (32.0-36.0); Mean Corpuscular Hemoglobin 32.7 pg (27.0-31.0); Mean Corpuscular Volume 97.9 fl (80.0-94.0); Mean Platelet Volume 7.8 fL (7.4-10.4); Platelet Count 220 thou/uL (130-400); RBC Distribution Width 11.9 % (11.5-14.5); Red Blood Cell (RBC) Count 3.57 mill/uL (4.70-6.10); White Blood Cell (WBC) Count 8.7 thou/uL (4.8-10.8)
[2017-11-13 04:14] LABS: Anion Gap 12 mmol/L (10-20); BUN (Urea Nitrogen) 18 mg/dL (8.4-25.7); Calc. Creatinine Clearance 215 mL/min (70-130); Calcium 8.6 mg/dL (7.8-10.44); Carbon Dioxide 31 mmol/L (22-29); Chloride 102 mmol/L (98-107); Estimated GFR-MDRD Greater than 90; Glucose 101 mg/dL (70-105); Sodium 142 mmol/L (136-145)
[2017-11-13] MEDS: Potassium Chloride 40 MEQ in Sodium Chloride 0.9% 250 ML 250 ML IVPB PRN (05:22)
[2017-11-13] MEDS: Metoclopramide HCl 10 MG/2 ML VIAL IVP SCH ×3 (05:23→17:58)
[2017-11-13] MEDS: Furosemide 20 MG/2 ML VIAL SLOW IVP SCH (05:23)
--- NOTE | 2017-11-13 08:23 | RAD ---
CHEST TWO VIEWS: Comparison: 11-12-17 History: Ventilated patient with respiratory failure. FINDINGS: Single view of the chest shows an enlarged but stable cardiomediastinal silhouette. The pacemaker is unchanged in position. The lines and tubes are unchanged in position. There appear to be small bilate ral pleural effusions, left greater than right. IMPRESSION: Stable exam. POS: [facility]
[2017-11-13] MEDS: Enoxaparin Sodium 40 MG/0.4 ML SYRINGE SC SCH (09:09)
[2017-11-13] MEDS: Senokot S 8.6-50 MG TAB PO SCH ×2 (09:10→20:44)
[2017-11-13] MEDS: NPH, Human Insulin Isophane 300 UNIT/3 ML VIAL SC SCH ×2 (09:10→21:37)
[2017-11-13] MEDS: Pantoprazole 40 MG VIAL IVP SCH ×2 (09:10→20:44)
[2017-11-13] MEDS ORDERED: Propofol 1,000 MG/100 ML VIAL IV ONE (12:36)
[2017-11-13] MEDS ORDERED: Dextrose 5 %-0.45 % NaCl 1,000 ML IV SCH (12:45)
--- NOTE | 2017-11-13 12:52 | PRG ---
DATE OF SERVICE: 11/13/2017 SERVICE: Pulmonary Medicine. INTERVAL HISTORY: The patient is doing okay from a respiratory standpoint. That being said, he cont inues to have abdominal distention. His belly is soft and he indicates there is no pain there. Unfo rtunately, he put over a liter and a half of fluid out of the NG tube in the last 24 hours once again . He is yet to have a bowel movement. Otherwise, there has been no interval change to his condition . PHYSICAL EXAMINATION: VITAL SIGNS: Afebrile, pulse 101, blood pressure 151/77, respirations 27, saturation 97% on 30% FiO2 and a PEEP of 8. GENERAL: The patient is awake and alert. In no apparent distress. LUNGS: Decent air entry. Not much in the way of crackles are present. HEART: Normal rate, regular. ABDOMEN: Soft. Nontender. There is some distention there, but there is no rebound or guarding. Aristides wel sounds are actually hypoactive. GENITOURINARY: Rosales catheter in place. NEUROLOGIC: Grossly nonfocal. LABORATORY DATA: WBC 8.7, hemoglobin 11.7, platelets 220,000. PH 7.39, pCO2 of 49, pO2 of 119 from yesterday. Sodium 142, potassium 3.0 despite 100 mEq of potassium yesterday. Basic metabolic profil e is otherwise unremarkable and his bicarbonate is stable at 31. Urinalysis is unremarkable. Blood culture x2 was negative. Influenza A is positive, but B is negative. IMAGING: Chest x-ray demonstrates a stable chest. Endotracheal tube remains in decent position. Mo st of the left lung is obscured by cardiac marking or by the enlarged cardiac silhouette. Enteric ca theters is crossing the midline and below the level of the diaphragm. KUB demonstrates no diana evid ence of any obstructive profile. ASSESSMENT: 1. Acute hypoxic respiratory failure. 2. Community-acquired pneumonia secondary to influenza A. 3. Acute on chronic diastolic heart failure, returned to baseline. 4. Type 2 diabetes mellitus. PLAN: We will continue replacing the potassium and recheck another level tomorrow morning. Tamiflu will be continued. Oxygen requirements remain extraordinarily marginal, unlike for him to have sligh tly lower O2 requirements before we entertain that. We will back off on his Lasix, as clinically the patient is dry today. I will ultrasound the left chest to see whether or not there is any pocket of fluid there that could potentially be trained to expedite weaning from the ventilator. Critical care time: 30 minutes.
[2017-11-13] MEDS: Potassium Chloride 40 MEQ in Premix Bag 1 BAG IVPB SCH ×2 (13:36→17:20)
[2017-11-13] MEDS: D5 1/2 NS w/20 mEq KCL 1,000 ML IV SCH (13:36)
--- NOTE | 2017-11-13 16:46 | PDOC.PN ---
- Subjective Encounter Start Date: 11/13/17 Encounter Start Time: 16:45 Patient seen and examined. No new complaints. No overnight events - Objective MAR Reviewed: Yes Vital Signs & Weight: Vital Signs (12 hours) Temp Pulse Resp BP Pulse Ox 11/13/17 16:02 102 H 137/74 11/13/17 16:01 103 H 35 H 90 L 11/13/17 14:00 26 H 11/13/17 12:00 98.4 F 27 H 11/13/17 11:53 101 H 151/77 H 11/13/17 11:52 100 27 H 97 11/13/17 10:00 27 H 11/13/17 08:00 98.3 F 22 H 11/13/17 07:34 98.3 F 85 21 H 98 11/13/17 07:03 85 117/60 11/13/17 07:01 85 23 H 93 L 11/13/17 07:00 98.3 F 11/13/17 05:53 22 H Weight Admit Weight 291 lb Weight 276 lb 3.827 oz Most Recent Monitor Data Heart Rate from ECG 109 NIBP 147/83 NIBP BP-Mean 99 Respiration from ECG 33 SpO2 92 I&O: 11/12/17 11/13/17 11/14/17 06:59 06:59 06:59 Intake Total 2631 1998.3 355 Output Total 5180 4170 950 Balance -2549 -2171.7 -595 Result Diagrams: 11/13/17 03:45 11/13/17 03:45 Additional Labs: Accuchecks 11/13/17 11/13/17 11/12/17 10:07 03:49 21:20 POC Glucose 114 H 92 97 Phys Exam - Physical Examination intubated Neck: no JVD Respiratory: no rales decresed bs at bases Cardiovascular: no significant murmur Gastrointestinal: no distention Musculoskeletal: pulses present Dx/Plan (1) Acute respiratory failure with hypoxia and hypercapnia Code(s): J96.01 - ACUTE RESPIRATORY FAILURE WITH HYPOXIA; J96.02 - ACUTE RESPIRATORY FAILURE WITH HYPERCAPNIA Status: Acute (2) COPD exacerbation Code(s): J44.1 - CHRONIC OBSTRUCTIVE PULMONARY DISEASE W (ACUTE) EXACERBATION Status: Acute (3) DM type 2 (diabetes mellitus, type 2) Status: Chronic Qualifiers: Diabetes mellitus complication status: without complication Diabetes mellitus detention insulin use: with laborer gold leaf use Qualified Code(s): E11.9 - Type 2 diabetes mellitus without complications; Z79.4 - penitentiary (current) use of insulin; Z79.4 - penitentiary (current) use of insulin; Z79.4 - penitentiary ( current) use of insulin; Z79.4 - penitentiary (current) use of insulin (4) HLD (hyperlipidemia) Code(s): E78.5 - HYPERLIPIDEMIA, UNSPECIFIED Status: Chronic (5) HTN (hypertension) Code(s): I10 - ESSENTIAL (PRIMARY) HYPERTENSION Status: Chronic - Plan * Acute respiratory failure due to COPD exacerbation and Pneumonia. He remain on the ventilator. * Further recommendation from Critical Care * DM- blood glucose is stable * HTN- blood pressure is stable * Nutritional Support- would consider trial of tube feeds, low rate. * Serum sodium and bicarb levels have improved
[2017-11-13] MEDS: HumaLOG 300 UNITS/3 ML VIAL SC PRN (17:59)
[2017-11-13 20:48] LABS: Hemoglobin 11.9 g/dL (14.0-18.0); Platelet Count 236 thou/uL (130-400)
[2017-11-14] MEDS: Metoclopramide HCl 10 MG/2 ML VIAL IVP SCH ×4 (00:14→17:24)
[2017-11-14] MEDS: Propofol 1,000 MG/100 ML VIAL IV PRN ×8 (00:57→23:47)
[2017-11-14 05:29] LABS: Anion Gap 12 mmol/L (10-20); BUN (Urea Nitrogen) 16 mg/dL (8.4-25.7); Calc. Creatinine Clearance 213 mL/min (70-130); Calcium 8.7 mg/dL (7.8-10.44); Carbon Dioxide 30 mmol/L (22-29); Chloride 102 mmol/L (98-107); Estimated GFR-MDRD Greater than 90; Glucose 136 mg/dL (70-105); Magnesium 1.7 mg/dL (1.6-2.6); Phosphorus 2.1 mg/dL (2.3-4.7); Potassium 3.2 mmol/L (3.5-5.1); Sodium 141 mmol/L (136-145)
[2017-11-14] MEDS: Potassium Chloride 40 MEQ in Sodium Chloride 0.9% 250 ML 250 ML IVPB PRN (07:18)
[2017-11-14] MEDS: D5 1/2 NS w/20 mEq KCL 1,000 ML IV SCH (07:20)
[2017-11-14] MEDS: Pantoprazole 40 MG VIAL IVP SCH ×2 (09:39→20:09)
[2017-11-14] MEDS: Enoxaparin Sodium 40 MG/0.4 ML SYRINGE SC SCH (09:40)
[2017-11-14] MEDS: Senokot S 8.6-50 MG TAB PO SCH ×2 (09:40→20:14)
[2017-11-14] MEDS: NPH, Human Insulin Isophane 300 UNIT/3 ML VIAL SC SCH ×2 (09:57→21:18)
--- NOTE | 2017-11-14 12:30 | CON ---
DATE OF CONSULTATION: 11/14/2017 HISTORY OF PRESENT ILLNESS: The patient is a 62-year-old gentleman who was admitted on for sepsis and respiratory failure and was subsequently diagnosed with influenza and has had respiratory failure and intubated. He has a nasogastric tube and contents of the nasogastric tube we re noted to be more bright red yesterday that seems to have resolved today. He has had no melena or hematochezia. He has had difficulty tolerating tube feedings with high residuals. PAST MEDICAL HISTORY: Includes chronic obstructive pulmonary disease, obstructive sleep apnea, hyper tension, diabetes mellitus, and congestive heart failure. PAST SURGICAL HISTORY: Includes defibrillator placement. HOME MEDICATIONS: Include metformin 1000 mg p.o. b.i.d., clonazepam 0.5 mg p.o. b.i.d., BuSpar 10 mg p.o. t.i.d., spironolactone 25 mg p.o. daily, Zoloft 100 mg p.o. daily, potassium chloride 20 mEq p. o. daily, lisinopril 40 mg p.o. daily, DuoNeb q.6 hours, insulin 45 units subcu q.a.m., gabapentin 60 0 mg p.o. t.i.d., Lasix 20 mg p.o. b.i.d., doxycycline 100 mg p.o. b.i.d., Omnicef 600 mg p.o. daily, Coreg 25 mg p.o. b.i.d., aspirin 81 mg p.o. daily, prednisone 40 mg p.o. daily. ALLERGIES: No known allergies. SOCIAL HISTORY: He is a chronic smoker. Denies any alcohol. FAMILY HISTORY: Negative for GI or liver disease. REVIEW OF SYSTEMS: Unobtainable. PHYSICAL EXAMINATION: GENERAL: Shows an obese white male, intubated on a respirator. VITAL SIGNS: Pulse is 99, blood pressure 160/74, respiratory rate 28, and temperature is 98.8. HEENT: Unremarkable. NECK: Supple. CHEST: Clear. CARDIOVASCULAR: Regular rate and rhythm. ABDOMEN: Distended, obese, slightly tympanitic. Bowel sounds are hypoactive. RECTAL: Deferred. EXTREMITIES: Normal. LABORATORY DATA AND IMAGING DATA: Shows hemoglobin of 11.9, hematocrit 35.8, platelet count is 236. Chemistry shows potassium of 3.2, CO2 30, glucose 136, phosphorus 2.1. Abdominal x-ray done on 02/2018 showed no diana evidence of obstruction, cardiomegaly is noted. ASSESSMENT: 1. Blood in the nasogastric tube - there was a period where the patient had bright red blood in the nasogastric tube. This probably represents either some NG trauma to the stomach versus stress gastri tis versus bleeding peptic ulcer disease. At this point, this seems to have resolved. 2. Respiratory failure. 3. Acute influenza. 4. High gastric residuals - this may be a manifestation of diabetic gastroparesis or could be more o f an ileus type picture related to his acute respiratory failure. RECOMMENDATIONS: 1. Discontinued medications which may affect gastric motility including narcotics. 2. Correct electrolytes. 3. Agree with metoclopramide. 4. Followup serial hemoglobin and hematocrit. 5. Continue pantoprazole at b.i.d. dosage.
--- NOTE | 2017-11-14 13:19 | RAD ---
TWO VIEWS OF THE ABDOMEN: DATE: 11/14/17. COMPARISON: None. HISTORY: High gastric residuals. FINDINGS: Supine radiograph of the abdomen and pelvis and left lateral decubitus radiograph of the abdomen and pelvis provided. Patient body habitus limits detailed assessment. The decubitus images are markedly limited if not nondiagnostic secondary to body habitus. The bowel gas pattern appears nonobstructed . IMPRESSION: Markedly limited examination secondary to body habitus. The bowel gas pattern appears nonobstructed. POS: [facility]
--- NOTE | 2017-11-14 14:08 | PDOC.PN ---
- Subjective Encounter Start Date: 11/14/17 Encounter Start Time: 14:06 Patient seen and examined. No new complaints. No overnight events - Objective MAR Reviewed: Yes Vital Signs & Weight: Vital Signs (12 hours) Temp Pulse Resp BP Pulse Ox 11/14/17 12:00 98.6 F 25 H 11/14/17 11:31 95 165/75 H 11/14/17 11:29 92 28 H 94 L 11/14/17 10:00 20 11/14/17 08:00 98.8 F 97 20 94 L 11/14/17 06:57 97 165/77 H 11/14/17 06:51 99 28 H 94 L 11/14/17 05:25 24 H 11/14/17 04:00 98.6 F 25 H 11/14/17 02:48 94 165/80 H Weight Admit Weight 291 lb Weight 274 lb 7.608 oz Most Recent Monitor Data Heart Rate from ECG 101 NIBP 160/80 NIBP BP-Mean 109 Respiration from ECG 28 SpO2 92 I&O: 11/13/17 11/14/17 11/15/17 06:59 06:59 06:59 Intake Total 1998.3 1944 382 Output Total 4170 2810 330 Balance -2171.7 -866 52 Result Diagrams: 11/13/17 20:34 11/14/17 03:45 Additional Labs: Accuchecks 11/14/17 11/14/17 11/13/17 09:52 03:48 21:35 POC Glucose 149 H 139 H 142 H 11/13/17 17:56 POC Glucose 204 H Phys Exam - Physical Examination intubated HEENT: moist MMs Neck: no nodes coarse bs Cardiovascular: no significant murmur Gastrointestinal: soft Musculoskeletal: pulses present Dx/Plan (1) Acute respiratory failure with hypoxia and hypercapnia Code(s): J96.01 - ACUTE RESPIRATORY FAILURE WITH HYPOXIA; J96.02 - ACUTE RESPIRATORY FAILURE WITH HYPERCAPNIA Status: Acute (2) COPD exacerbation Code(s): J44.1 - CHRONIC OBSTRUCTIVE PULMONARY DISEASE W (ACUTE) EXACERBATION Status: Acute (3) DM type 2 (diabetes mellitus, type 2) Status: Chronic Qualifiers: Diabetes mellitus complication status: without complication Diabetes mellitus chcf insulin use: with keno terminal operator use Qualified Code(s): E11.9 - Type 2 diabetes mellitus without complications; Z79.4 - custodial (current) use of insulin; Z79.4 - exterminator termite (current) use of insulin; Z79.4 - exterminator termite ( current) use of insulin; Z79.4 - exterminator termite (current) use of insulin (4) HLD (hyperlipidemia) Code(s): E78.5 - HYPERLIPIDEMIA, UNSPECIFIED Status: Chronic (5) HTN (hypertension) Code(s): I10 - ESSENTIAL (PRIMARY) HYPERTENSION Status: Chronic - Plan * blood in ng tube- gi input apprecated. cont protonix. * cont vent support * pulm input appreiciated
[2017-11-14] MEDS: Lorazepam 2 MG/ML VIAL SLOW IVP PRN (15:19)
[2017-11-14] MEDS: HumaLOG 300 UNITS/3 ML VIAL SC PRN (16:57)
--- NOTE | 2017-11-14 17:49 | PRG ---
DATE OF SERVICE: 11/14/2017 SERVICE: Pulmonary Medicine. INTERVAL HISTORY: The patient is doing really quite well from a respiratory standpoint. This mornin g he CPAP'ed and did really well. He denies any current shortness of breath or chest discomfort. He has no belly discomfort. Overnight, he did have a bleeding episode that resolved spontaneously. Re peat hemoglobin did demonstrate a significant drop in value. That being said, his Protonix was vazquez ed to twice daily. PHYSICAL EXAMINATION: VITAL SIGNS: Afebrile, pulse 97, blood pressure 168/89, respirations 19, saturation 93% on 40% FIO2 and a PEEP of 5. GENERAL: The patient is awake and alert. No apparent distress. LUNGS: Decent air entry bilaterally. There are dependent crackles present. HEART: Normal rate, regular. ABDOMEN: Soft. It is nontender, nondistended. Bowel sounds are actually positive. MUSCULOSKELETAL: No cyanosis or clubbing. There is a little pitting throughout. GENITOURINARY: Rosales catheter in place. NEUROLOGIC: Grossly nonfocal. LABORATORIES: Hemoglobin 11.9 and roughly stable. Platelets 236,000. Potassium 3.2, phosphorus 2.1 , magnesium 1.7. Basic metabolic profile is otherwise completely unremarkable. Bicarbonate is stabl e at 30. Urinalysis is unremarkable. Vancomycin trough is 18. IMAGING: KUB demonstrates markedly limited exam secondary to body habitus. Bowel gas pattern appear s nonobstructed. ASSESSMENT: 1. Acute hypoxic respiratory failure. 2. Community-acquired pneumonia secondary to influenza A. 3. Acute on chronic diastolic heart failure, returned to baseline. 4. Type 2 diabetes mellitus. PLAN: We will continue replacing potassium. Also, give him some magnesium and phosphorus. He did w ell on spontaneous breathing trial, but he was on higher pressure support. As such, we will put him back on mechanical ventilation, and repeat spontaneous breathing trial earlier in the morning. If he meets criteria after about 30-45 minutes, extubation will be considered. Critical care time: 30 minutes.
[2017-11-14] MEDS ORDERED: Magnesium Sulfate 2 GM in Sodium Chloride 0.9% 100 ML IVPB SCH (18:00)
[2017-11-14] MEDS ORDERED: Potassium Chloride 40 MEQ in Premix Bag 1 BAG IVPB SCH (18:00)
[2017-11-14] MEDS ORDERED: Magnesium 2 GM/NS 0.9% 50 ML 2 GM in Premix Bag 1 BAG IVPB SCH (18:15)
[2017-11-14] MEDS ORDERED: Potassium Chloride 40 MEQ in Sodium Chloride 0.9% 500 ML IVPB SCH (18:30)
[2017-11-14] MEDS ORDERED: Potassium Phosphate 15 MMOL in Sodium Chloride 0.9% 250 ML 250 ML IVPB SCH (18:30)
[2017-11-15] MEDS: hydrALAZINE 20 MG/ML VIAL SLOW IVP PRN (00:06)
[2017-11-15] MEDS: Metoclopramide HCl 10 MG/2 ML VIAL IVP SCH ×2 (00:07→05:18)
[2017-11-15] MEDS: Propofol 1,000 MG/100 ML VIAL IV PRN ×2 (02:37→05:18)
[2017-11-15 04:42] LABS: #Basophils 0.1 thou/uL (0.0-0.2); #Eosinphils 0.3 thou/uL (0.0-0.7); #Lymphocytes 1.5 thou/uL (1.20-3.40); #Monocytes 0.9 thou/uL (0.11-0.59); %Basophils 0.7 % (0.0-1.0); %Eosinophils 3.1 % (0.0-10.0); %Lymphocytes 15.1 % (21.0-51.0); %Neutrophils 72.2 % (42.0-75.0); Hemoglobin 11.8 g/dL (14.0-18.0); Mean Corpuscular HGB CONC 33.2 g/dL (32.0-36.0); Mean Corpuscular Hemoglobin 32.2 pg (27.0-31.0); Mean Corpuscular Volume 97.1 fl (80.0-94.0); Mean Platelet Volume 7.9 fL (7.4-10.4); Platelet Count 256 thou/uL (130-400); RBC Distribution Width 12.2 % (11.5-14.5); Red Blood Cell (RBC) Count 3.65 mill/uL (4.70-6.10); White Blood Cell (WBC) Count 9.7 thou/uL (4.8-10.8)
[2017-11-15 05:03] LABS: Anion Gap 14 mmol/L (10-20); BUN (Urea Nitrogen) 11 mg/dL (8.4-25.7); Calc. Creatinine Clearance 247 mL/min (70-130); Calcium 8.3 mg/dL (7.8-10.44); Carbon Dioxide 25 mmol/L (22-29); Chloride 105 mmol/L (98-107); Estimated GFR-MDRD Greater than 90; Glucose 110 mg/dL (70-105); Magnesium 1.7 mg/dL (1.6-2.6); Phosphorus 2.9 mg/dL (2.3-4.7); Potassium 3.4 mmol/L (3.5-5.1); Sodium 141 mmol/L (136-145)
[2017-11-15] MEDS: D5 1/2 NS w/20 mEq KCL 1,000 ML IV SCH (05:18)
[2017-11-15] MEDS ORDERED: ISOVUE-370 76%-LOCM 1 ML ONE (06:18)
[2017-11-15] MEDS: Potassium Chloride 40 MEQ in Sodium Chloride 0.9% 250 ML 250 ML IVPB PRN (06:41)
[2017-11-15] MEDS: Enoxaparin Sodium 40 MG/0.4 ML SYRINGE SC SCH (08:45)
[2017-11-15] MEDS: NPH, Human Insulin Isophane 300 UNIT/3 ML VIAL SC SCH ×2 (08:45→21:08)
[2017-11-15] MEDS: Pantoprazole 40 MG VIAL IVP SCH ×2 (08:46→21:07)
[2017-11-15] MEDS: Senokot S 8.6-50 MG TAB PO SCH (09:45)
[2017-11-15] MEDS ORDERED: Magnesium 2 GM/NS 0.9% 100 ML 2 GM in Premix Bag 1 BAG IVPB SCH (11:00)
[2017-11-15] MEDS ORDERED: Potassium Chloride 40 MEQ in Premix Bag 1 BAG IVPB SCH (11:00)
--- NOTE | 2017-11-15 11:10 | PRG ---
DATE OF SERVICE: 11/15/2017 SERVICE: Pulmonary Medicine INTERVAL HISTORY: The patient is doing really well from cardiovascular and respiratory perspective. He currently denies any fevers, chills, nausea, vomiting or chest discomfort. Otherwise, there has been no interval change in his condition. He has been on CPAP 5/5 for over 4 hours. He then had a m ucus plug in sat bolt upright in his chair. He demonstrates excellent strength. He was coughing, bu t having a difficult time breathing. We were able to suction him and he settled right back down. Ou tside of this, there were no significant respiratory events or cardiovascular events. PHYSICAL EXAMINATION: VITAL SIGNS: Afebrile with T-max of 99.2. Pulse 100, blood pressure 155/88, respirations 27, satura tion 92% on 37% FiO2 and PEEP of 5. GENERAL: The patient is awake and alert. No apparent distress. LUNGS: Decent air entry. There is no prolonged expiratory phase, wheezing, rhonchi or crackles. HEART: Normal rate, regular. ABDOMEN: Soft, nontender, nondistended. Bowel sounds are positive. MUSCULOSKELETAL: No cyanosis or clubbing. There is no pitting in the bilateral lower extremities. NEUROLOGIC: Grossly nonfocal. LABORATORY DATA: WBC 9.7, hemoglobin 11.8, platelets 256,000. Basic metabolic profile, magnesium an d phosphorus fall within the normal limits except for potassium 3.4. Influenza A is positive. Blood cultures x2 are unremarkable. ASSESSMENT: 1. Acute hypoxic respiratory failure. 2. Community-acquired pneumonia secondary to influenza A. 3. Acute on chronic diastolic heart failure, returned to baseline. 4. Type 2 diabetes mellitus. PLAN: I will continue replacing potassium aggressively. He continues to have significant output fro m his stomach. He is not tolerating any p.o. We will go ahead and get a CT of his abdomen and pelvis today with contrast. I will put him back on a slightly higher support for the next [address] can be done I will repeat a brief spontaneous breathing trial and consider him for extubation. Critical care time: 30 minutes.
[2017-11-15] MEDS ORDERED: Potassium Chloride 40 MEQ in Sodium Chloride 0.9% 250 ML 250 ML IVPB SCH ×4 (12:00)
--- NOTE | 2017-11-15 14:25 | PRG ---
DATE OF SERVICE: 11/15/2017 SUBJECTIVE: The patient reportedly is breathing well. He just came back from CT of the abdomen and pelvis, the results are still pending. He continues to have high gastric residuals. OBJECTIVE: VITAL SIGNS: Temperature is 99.2, pulse is 97, blood pressure 148/89, respiratory rate is 22. CHEST: Clear. CARDIOVASCULAR: Regular rate and rhythm. ABDOMEN: Soft, nontender. Hypoactive bowel sounds. RECTAL: Deferred. EXTREMITIES: Normal. LABORATORY DATA: Shows hemoglobin 11.8, hematocrit 35.4. White blood cell count 9.7. Chemistry kourtney wed potassium 3.4, glucose 110. Abdominal x-rays from yesterday show no abnormalities, but poor exam . ASSESSMENT: 1. High gastric residuals. 2. Blood in the nasogastric tube - this is resolved. 3. Respiratory failure secondary to acute influenza A. RECOMMENDATIONS: 1. We will plan on EGD if okay with Critical Care. 2. Continue proton pump inhibitor.
--- NOTE | 2017-11-15 15:19 | PDOC.PN ---
- Subjective Encounter Start Date: 11/15/17 Encounter Start Time: 15:18 Patient seen and examined. No new complaints. No overnight events abdomen still distended - Objective MAR Reviewed: Yes Vital Signs & Weight: Vital Signs (12 hours) Temp Pulse Resp BP Pulse Ox 11/15/17 14:00 17 11/15/17 13:00 98.2 F 11/15/17 12:00 28 H 11/15/17 10:24 100 155/88 H 11/15/17 10:22 99 27 H 92 L 11/15/17 10:00 30 H 11/15/17 08:00 99.2 F 94 28 H 91 L 11/15/17 07:57 95 150/79 H 11/15/17 07:55 92 27 H 92 L 11/15/17 06:00 27 H 11/15/17 04:00 98.5 F 11/15/17 03:57 30 H Weight Admit Weight 291 lb Weight 269 lb 10.005 oz Most Recent Monitor Data Heart Rate from ECG 86 NIBP 128/79 NIBP BP-Mean 94 Respiration from ECG 22 SpO2 91 I&O: 11/14/17 11/15/17 11/16/17 06:59 06:59 06:59 Intake Total 1944 3088 650 Output Total 2810 2600 1160 Balance -866 488 -510 Result Diagrams: 11/15/17 04:19 11/15/17 04:19 Additional Labs: Accuchecks 11/15/17 11/15/17 11/14/17 10:13 04:21 21:18 POC Glucose 118 H 106 139 H 11/14/17 11/12/17 11/12/17 16:55 04:24 00:50 POC Glucose 169 H 80 88 11/11/17 20:19 POC Glucose 109 Phys Exam - Physical Examination intubated HEENT: moist MMs Neck: no JVD coarse bs Cardiovascular: no significant murmur distended Musculoskeletal: pulses present Dx/Plan (1) Acute respiratory failure with hypoxia and hypercapnia Code(s): J96.01 - ACUTE RESPIRATORY FAILURE WITH HYPOXIA; J96.02 - ACUTE RESPIRATORY FAILURE WITH HYPERCAPNIA Status: Acute (2) COPD exacerbation Code(s): J44.1 - CHRONIC OBSTRUCTIVE PULMONARY DISEASE W (ACUTE) EXACERBATION Status: Acute (3) DM type 2 (diabetes mellitus, type 2) Status: Chronic Qualifiers: Diabetes mellitus complication status: without complication Diabetes mellitus terminal press operator insulin use: with usp use Qualified Code(s): E11.9 - Type 2 diabetes mellitus without complications; Z79.4 - terminal press operator (current) use of insulin; Z79.4 - terminal press operator (current) use of insulin; Z79.4 - long-term ( current) use of insulin; Z79.4 - terminal press operator (current) use of insulin (4) HLD (hyperlipidemia) Code(s): E78.5 - HYPERLIPIDEMIA, UNSPECIFIED Status: Chronic (5) HTN (hypertension) Code(s): I10 - ESSENTIAL (PRIMARY) HYPERTENSION Status: Chronic - Plan f/u gi plan f/u ct abd f/u sourcing internship plan
[2017-11-15] MEDS: Lorazepam 2 MG/ML VIAL SLOW IVP PRN (15:33)
--- NOTE | 2017-11-15 15:42 | CT ---
CT ABDOMEN AND PELVIS WITH IV CONTRAST: DATE: 11/15/17. HISTORY: Large output from orogastric tube. Dyspnea. COMPARISON: CT abdomen on 11/04/17. FINDINGS: There are small right and tiny left pleural effusions with associated passive atelectasis. There is partial visualization of AICD leads within the right atrial appendage and left ventricle as well as coronary sinus lead. A nasogastric tube is noted in place with the tip in the body of the st omach. No dilated loops of bowel are present to suggest a small bowel obstruction. Again noted is a nonobstructing inferior pole right renal calculus. The liver, spleen, pancreas, and bilateral adrenal glands demonstrate a normal CT appearance. Vascular calcifications are seen in the abdominal aorta and iliac arteries. Rosales catheter is seen in a decompressed urinary bladder. The appendix is normal in caliber. There is minimal nonspecific presacral stranding present. No other interval change from the prior CT abdomen. IMPRESSION: 1. Small right and tiny left pleural effusions with atelectasis. 2. Nasogastric tube noted in place with tip in the body of the stomach. There is no evidence of a s mall bowel obstruction. 3. Nonobstructing right renal calculus. 4. Rosales catheter present in the urinary bladder. 5. Vascular calcifications. 6. Minimal stranding in the subcutaneous soft tissues right anterior pelvis likely related to recent subcutaneous injection. 7. No acute findings. POS: [facility]
[2017-11-15] MEDS: HumaLOG 300 UNITS/3 ML VIAL SC PRN (16:18)
--- NOTE | 2017-11-15 18:37 | OP ---
PREOPERATIVE DIAGNOSIS: High NG residuals and blood in the NG tube. PROCEDURE: After informed consent was obtained, the patient was placed in the left lateral decubitus position. Anesthesia administered per the Anesthesia Department. Forward-viewing endoscope was ins erted into the esophagus under direct visualization with ease and passed to the second portion of the duodenum with ease. No obstruction was noted. The duodenum and duodenal bulb showed duodenitis, bu t no bleeding. The pylorus, antrum, body, fundus, and cardia were normal except for some diffuse gas tritis and NG trauma changes. The esophagus was normal throughout. ASSESSMENT: 1. Stress gastritis and duodenitis. 2. Otherwise normal esophagogastroduodenoscopy. RECOMMENDATIONS: 1. Trial of no NG tube suction. 2. Proton pump inhibitor.
[2017-11-16 07:04] LABS: Anion Gap 13 mmol/L (10-20); BUN (Urea Nitrogen) 12 mg/dL (8.4-25.7); Calc. Creatinine Clearance 234 mL/min (70-130); Calcium 8.4 mg/dL (7.8-10.44); Carbon Dioxide 25 mmol/L (22-29); Chloride 107 mmol/L (98-107); Estimated GFR-MDRD Greater than 90; Glucose 150 mg/dL (70-105); Magnesium 2.2 mg/dL (1.6-2.6); Phosphorus 3.1 mg/dL (2.3-4.7); Potassium 4.2 mmol/L (3.5-5.1); Sodium 141 mmol/L (136-145)
[2017-11-16] MEDS: NPH, Human Insulin Isophane 300 UNIT/3 ML VIAL SC SCH ×2 (08:27→20:25)
[2017-11-16] MEDS: Pantoprazole 40 MG VIAL IVP SCH ×2 (08:27→20:25)
[2017-11-16] MEDS: Enoxaparin Sodium 40 MG/0.4 ML SYRINGE SC SCH (08:27)
--- NOTE | 2017-11-16 12:38 | PRG ---
DATE OF SERVICE: 11/16/2017 SUBJECTIVE: The patient is doing well. He has had no vomiting. Continues to have bowel movements. He appears ready to be extubated. OBJECTIVE: VITAL SIGNS: Temperature is 98.9, pulse 78, blood pressure 182/73 and respiratory rate is 28. CHEST: Clear. CARDIOVASCULAR: Regular rate and rhythm. ABDOMEN: Soft, diffusely tympanitic, nontender, without organomegaly. CHEMISTRIES: Okay. ASSESSMENT: 1. High gastric residuals. The patient is tolerating no NG suction. 2. Respiratory failure. 3. Stress gastritis and duodenitis. RECOMMENDATIONS: 1. Continue PPI. 2. Okay to extubate. 3. Okay to feed from GI standpoint once the extubation is performed.
[2017-11-16] MEDS: D5 1/2 NS w/20 mEq KCL 1,000 ML IV SCH (13:11)
--- NOTE | 2017-11-16 14:13 | PRG ---
DATE OF SERVICE: 11/16/2017 SERVICE: Pulmonary Medicine. INTERVAL HISTORY: The patient is doing really well from a respiratory standpoint. He denies any cur rent fevers, chills, nausea or vomiting. Yesterday, he had an EGD. There is no lesion identified th ere. There was some critical care gastritis, but outside of this, there were no significant interval changes. PHYSICAL EXAMINATION: VITAL SIGNS: Afebrile with T-max 99.9, pulse 88, blood pressure 171/65, respirations 21, saturation 98% on 37% FiO2 and a PEEP of 5. GENERAL: The patient is intubated. He is on no sedation currently. He is cool, calm, and collected . He is following all commands and demonstrates decent strength. HEENT: Normocephalic, atraumatic. Sclerae are white, conjunctivae pink. Oral mucosa is moist witho ut lesions. LUNGS: Excellent air entry. Dependent crackles are minimal. HEART: Normal rate, regular. ABDOMEN: Soft, nontender, nondistended. Bowel sounds are positive. MUSCULOSKELETAL: No cyanosis or clubbing. There is no pitting in the bilateral lower extremities. NEUROLOGIC: Grossly nonfocal. LABORATORY DATA: Basic metabolic profile, magnesium and phosphorus were all unremarkable. Urinalysi s is also unremarkable. Influenza A is positive. B is negative. Blood cultures x2 are unremarkable . IMAGING: CTA of the abdomen and pelvis demonstrated no evidence of any obstructive pathology. Small bilateral pleural effusions were present. Minimal stranding in the subcutaneous soft tissue anterio r pelvis related to recent subcutaneous injection. No acute findings. ASSESSMENT: 1. Acute hypoxic respiratory failure. 2. Community-acquired pneumonia secondary to influenza. 3. Acute on chronic diastolic heart failure, returned to baseline. 4. Type 2 diabetes mellitus. PLAN: We will continue supportive measures moving forward. A spontaneous breathing trial will be co mpleted. If he meets criteria, extubation will be entertained. At this point, the patient's hypoxem ic respiratory failure has made a profound improvement over the past several days. If he is successf ully extubated, bladder training will be initiated and we will work towards removing the Rosales cathet er. We will increase mobility as tolerated and see if we can get him up to a chair a couple of times today.
[2017-11-16] MEDS: hydrALAZINE 20 MG/ML VIAL SLOW IVP PRN (15:13)
[2017-11-16] MEDS ORDERED: Chloraseptic Spray 180 ml Bottle PO PRN (21:20)
[2017-11-17] MEDS: hydrALAZINE 20 MG/ML VIAL SLOW IVP PRN (03:36)
[2017-11-17] MEDS: D5 1/2 NS w/20 mEq KCL 1,000 ML IV SCH (03:37)
[2017-11-17] MEDS: HumaLOG 300 UNITS/3 ML VIAL SC PRN ×2 (04:26→08:45)
[2017-11-17 05:09] LABS: Anion Gap 12 mmol/L (10-20); BUN (Urea Nitrogen) 12 mg/dL (8.4-25.7); Calc. Creatinine Clearance 226 mL/min (70-130); Calcium 8.6 mg/dL (7.8-10.44); Carbon Dioxide 25 mmol/L (22-29); Chloride 103 mmol/L (98-107); Estimated GFR-MDRD Greater than 90; Glucose 162 mg/dL (70-105); Magnesium 1.8 mg/dL (1.6-2.6); Phosphorus 2.5 mg/dL (2.3-4.7); Potassium 3.9 mmol/L (3.5-5.1); Sodium 136 mmol/L (136-145)
[2017-11-17] MEDS: Enoxaparin Sodium 40 MG/0.4 ML SYRINGE SC SCH (08:35)
[2017-11-17] MEDS: Pantoprazole 40 MG VIAL IVP SCH (08:35)
[2017-11-17] MEDS: NPH, Human Insulin Isophane 300 UNIT/3 ML VIAL SC SCH ×2 (08:45→19:57)
--- NOTE | 2017-11-17 10:18 | PDOC.PN ---
- Subjective Encounter Start Date: 11/16/17 Encounter Start Time: 10:17 Patient seen and examined. No new complaints. No overnight events - Objective MAR Reviewed: Yes Vital Signs & Weight: Vital Signs (12 hours) Temp Pulse Resp BP Pulse Ox 11/17/17 08:00 98.9 F 82 23 H 94 L 11/17/17 07:20 82 23 H 95 11/17/17 07:00 98.9 F 11/17/17 04:00 98.3 F 11/17/17 03:36 102 H 181/88 H 11/17/17 02:57 90 33 H 94 L 11/17/17 02:28 68 11/17/17 00:00 98.2 F 11/16/17 23:00 73 26 H 95 11/16/17 22:58 75 Weight Admit Weight 291 lb Weight 274 lb 0.553 oz Most Recent Monitor Data Heart Rate from ECG 91 NIBP 164/75 NIBP BP-Mean 109 Respiration from ECG 31 SpO2 96 I&O: 11/16/17 11/17/17 11/18/17 06:59 06:59 06:59 Intake Total 1965 1416 400 Output Total 1685 730 105 Balance 280 686 295 Result Diagrams: 11/15/17 04:19 11/17/17 04:29 Additional Labs: Accuchecks 11/17/17 11/17/17 11/16/17 08:44 04:17 20:20 POC Glucose 180 H 150 H 130 H Phys Exam - Physical Examination intubated HEENT: moist MMs Neck: no JVD dependent crackles Cardiovascular: no significant murmur Gastrointestinal: soft Musculoskeletal: pulses present follows commands Dx/Plan (1) Acute respiratory failure with hypoxia and hypercapnia Code(s): J96.01 - ACUTE RESPIRATORY FAILURE WITH HYPOXIA; J96.02 - ACUTE RESPIRATORY FAILURE WITH HYPERCAPNIA Status: Acute (2) COPD exacerbation Code(s): J44.1 - CHRONIC OBSTRUCTIVE PULMONARY DISEASE W (ACUTE) EXACERBATION Status: Acute (3) DM type 2 (diabetes mellitus, type 2) Status: Chronic Qualifiers: Diabetes mellitus complication status: without complication Diabetes mellitus termite renewal inspector insulin use: with termite renewal inspector use Qualified Code(s): E11.9 - Type 2 diabetes mellitus without complications; Z79.4 - correction (current) use of insulin; Z79.4 - correction (current) use of insulin; Z79.4 - correction ( current) use of insulin; Z79.4 - correction (current) use of insulin (4) HLD (hyperlipidemia) Code(s): E78.5 - HYPERLIPIDEMIA, UNSPECIFIED Status: Chronic (5) HTN (hypertension) Code(s): I10 - ESSENTIAL (PRIMARY) HYPERTENSION Status: Chronic - Plan * doing better * wean ventillator * f/u pulmonary plan * cont current rx
--- NOTE | 2017-11-17 15:35 | PRG ---
DATE OF SERVICE: 11/17/2017 SERVICE: Pulmonary Medicine. INTERVAL HISTORY: The patient is doing great from a respiratory standpoint. His strength has improv ed. He actually got up and stood today. He demonstrated a lot of weakness, but that should be expec rylee after being intubated for 11 days. He is very pleased with the way things are moving right now a nd has no specific complaints. No overnight events. PHYSICAL EXAMINATION: VITAL SIGNS: Afebrile, pulse 79, blood pressure 140/103, respirations 27, saturation 97% on 4 liters nasal cannula. GENERAL: The patient is awake, alert, in no apparent distress. LUNGS: Excellent air entry. Dependent crackles are minimal. HEART: Normal rate, regular. ABDOMEN: Soft, nontender, nondistended, bowel sounds positive. MUSCULOSKELETAL: No cyanosis or clubbing. There is trace pitting in the bilateral lower extremities . NEUROLOGIC: Grossly nonfocal. LABORATORY DATA: Basic metabolic profile was essentially unremarkable. Magnesium and phosphorus fal l within normal limits. ASSESSMENT: 1. Acute hypoxic respiratory failure. 2. Community-acquired pneumonia secondary to influenza. 3. Acute on chronic diastolic heart failure, returned to baseline. 4. Type 2 diabetes mellitus. PLAN: The patient will be transitioned out of the ICU to the medical unit. We will bladder train hi m and pull the Rosales out over the next 24 hours. Pulmonary Critical Care will continue to follow azraespinoza le he remains in this location for the time being. Oxygen will be weaned away as tolerated. Of note , the patient will require BiPAP on the floor as he has a home diagnosis of sleep apnea for which he uses.
--- NOTE | 2017-11-17 17:16 | PDOC.PN ---
- Subjective Encounter Start Date: 11/17/17 Encounter Start Time: 17:14 doing well got up and stood up today no n/v no f/c - Objective MAR Reviewed: Yes Vital Signs & Weight: Vital Signs (12 hours) Temp Pulse Pulse Pulse Resp BP BP 11/17/17 15:00 98.1 F 11/17/17 14:30 79 27 H 11/17/17 14:17 82 89 140/103 H 179/73 H 11/17/17 12:00 97.9 F 11/17/17 08:00 98.9 F 82 23 H 11/17/17 07:20 82 23 H 11/17/17 07:00 98.9 F Pulse Ox 11/17/17 15:00 11/17/17 14:30 97 11/17/17 14:17 11/17/17 12:00 11/17/17 08:00 94 L 11/17/17 07:20 95 11/17/17 07:00 Weight Admit Weight 291 lb Weight 274 lb 0.553 oz Most Recent Monitor Data Heart Rate from ECG 81 NIBP 159/62 NIBP BP-Mean 87 Respiration from ECG 29 SpO2 96 I&O: 11/16/17 11/17/17 11/18/17 06:59 06:59 06:59 Intake Total 1965 1416 950 Output Total 1685 730 405 Balance 280 686 545 Result Diagrams: 11/15/17 04:19 11/17/17 04:29 Additional Labs: Accuchecks 11/17/17 11/17/17 11/17/17 15:37 08:44 04:17 POC Glucose 82 180 H 150 H 11/16/17 20:20 POC Glucose 130 H Phys Exam - Physical Examination Constitutional: NAD HEENT: PERRLA Neck: no nodes minimal crackles Cardiovascular: no significant murmur Gastrointestinal: non-tender Musculoskeletal: pulses present Neurological: moves all 4 limbs Psychiatric: A&O x 3 Dx/Plan (1) Acute respiratory failure with hypoxia and hypercapnia Code(s): J96.01 - ACUTE RESPIRATORY FAILURE WITH HYPOXIA; J96.02 - ACUTE RESPIRATORY FAILURE WITH HYPERCAPNIA Status: Resolved (2) COPD exacerbation Code(s): J44.1 - CHRONIC OBSTRUCTIVE PULMONARY DISEASE W (ACUTE) EXACERBATION Status: Acute (3) DM type 2 (diabetes mellitus, type 2) Status: Chronic Qualifiers: Diabetes mellitus complication status: without complication Diabetes mellitus half-way insulin use: with half-way use Qualified Code(s): E11.9 - Type 2 diabetes mellitus without complications; Z79.4 - shelter (current) use of insulin; Z79.4 - shelter (current) use of insulin; Z79.4 - oil heaterman ( current) use of insulin; Z79.4 - shelter (current) use of insulin (4) HLD (hyperlipidemia) Code(s): E78.5 - HYPERLIPIDEMIA, UNSPECIFIED Status: Chronic (5) HTN (hypertension) Code(s): I10 - ESSENTIAL (PRIMARY) HYPERTENSION Status: Chronic (6) CAP (community acquired pneumonia) Code(s): J18.9 - PNEUMONIA, UNSPECIFIED ORGANISM Status: Acute (7) Obesity (BMI 30-39.9) Code(s): E66.9 - OBESITY, UNSPECIFIED Status: Acute (8) Influenza A Code(s): J10.1 - FLU DUE TO OTH IDENT INFLUENZA VIRUS W OTH RESP MANIFEST Status: Acute (9) Physical deconditioning Code(s): R53.81 - OTHER MALAISE Status: Acute (10) COSME (obstructive sleep apnea) Code(s): G47.33 - OBSTRUCTIVE SLEEP APNEA (ADULT) (PEDIATRIC) Status: Chronic (11) Gastritis Code(s): K29.70 - GASTRITIS, UNSPECIFIED, WITHOUT BLEEDING Status: Acute Comment: s/p egd cont ppi - Plan * cont current mx * pt/ot * case mx to help with placement * pulm input appreciated
[2017-11-17] MEDS: Carvedilol 6.25 MG TAB PO SCH (19:55)
[2017-11-17] MEDS: busPIRone HCl 10 MG TAB PO SCH (19:56)
[2017-11-18] MEDS: Enoxaparin Sodium 40 MG/0.4 ML SYRINGE SC SCH (07:52)
[2017-11-18] MEDS: Carvedilol 6.25 MG TAB PO SCH ×2 (07:52→16:52)
[2017-11-18] MEDS: busPIRone HCl 10 MG TAB PO SCH ×2 (07:52→20:43)
[2017-11-18] MEDS: Furosemide 40 MG TAB PO SCH (07:52)
[2017-11-18 08:29] VITALS: BMI 37.0
[2017-11-18] MEDS ORDERED: Calcium Carbonate 500 MG ChewTAB PO PRN (09:07)
[2017-11-18] MEDS: NPH, Human Insulin Isophane 300 UNIT/3 ML VIAL SC SCH ×2 (11:58→20:41)
[2017-11-18] MEDS ORDERED: Furosemide 40 MG/4 ML VIAL SLOW IVP SCH (15:00)
--- NOTE | 2017-11-18 15:21 | PRG ---
DATE OF SERVICE: 11/18/2017 SERVICE: Pulmonary Medicine. INTERVAL HISTORY: The patient is doing really well from a respiratory standpoint. His strength is i mproving. He has yet to be too terribly active. He indicates that he walks back and forth to the [employer] throom, but outside of that, he has not been up and around too much. He has no respiratory issues. He is back down to his home dose of oxygen. He is interested in possibly going into a rehabilitation center, which I think would be reasonable given his protracted course in the ICU. PHYSICAL EXAMINATION: VITAL SIGNS: Afebrile, pulse 71, blood pressure 161/74, respirations 20, saturation 94% on 3 liters nasal cannula. GENERAL: Patient is awake, alert, in no apparent distress. LUNGS: Excellent air entry. Dependent crackles are present. No prolonged expiratory phase or wheez ing is appreciated. HEART: Normal rate, regular. ABDOMEN: Soft, nontender, nondistended. Bowel sounds positive. MUSCULOSKELETAL: No cyanosis or clubbing. There is 1+ pitting in the bilateral lower extremities wh ich is much improved. GENITOURINARY: Rosales catheter in place. NEUROLOGIC: Grossly nonfocal. ASSESSMENT: 1. Acute hypoxic respiratory failure. 2. Community-acquired pneumonia secondary to influenza A. 3. Acute on chronic diastolic heart failure. 4. Type 2 diabetes mellitus. PLAN: I will give the patient a dose of Lasix today. We will start him on a p.o. dose of Lasix on a daily basis. From a purely respiratory perspective, the patient is stable for transition out of the hospital. We will get his Rosales out. I will look into skilled options for the patient if he does n ot qualify for rehabilitation.
[2017-11-18] MEDS: HumaLOG 300 UNITS/3 ML VIAL SC PRN (16:52)
--- NOTE | 2017-11-18 18:47 | PDOC.PN ---
- Subjective Encounter Start Date: 11/18/17 Encounter Start Time: 18:46 Patient seen and examined. No new complaints. No overnight events - Objective MAR Reviewed: Yes Vital Signs & Weight: Vital Signs (12 hours) Temp Pulse Resp BP BP Pulse Ox 11/18/17 18:23 76 20 93 L 11/18/17 16:26 97.8 F 86 20 167/91 H 94 L 11/18/17 10:50 98.0 F 71 20 161/74 H 94 L 11/18/17 08:00 98.0 F 80 18 11/18/17 07:14 98.0 F 80 18 176/91 H 94 L Weight Admit Weight 291 lb Weight 273 lb 1.6 oz Most Recent Monitor Data Heart Rate from ECG 68 NIBP 173/63 NIBP BP-Mean 125 Respiration from ECG 24 SpO2 96 I&O: 11/17/17 11/18/17 11/19/17 06:59 06:59 06:59 Intake Total 1416 2058 1100 Output Total 140 860 2558 Balance 686 1178 -2150 Result Diagrams: 11/15/17 04:19 11/17/17 04:29 Additional Labs: Accuchecks 11/18/17 11/18/17 11/18/17 16:25 10:51 04:17 POC Glucose 188 H 148 H 99 11/17/17 11/16/17 11/16/17 19:53 16:51 11:08 POC Glucose 111 H 140 H 164 H Phys Exam - Physical Examination Constitutional: NAD HEENT: PERRLA Neck: no nodes Respiratory: no wheezing dependent crackles Cardiovascular: no significant murmur Gastrointestinal: non-tender Musculoskeletal: pulses present Neurological: moves all 4 limbs Psychiatric: A&O x 3 Dx/Plan (1) Acute respiratory failure with hypoxia and hypercapnia Code(s): J96.01 - ACUTE RESPIRATORY FAILURE WITH HYPOXIA; J96.02 - ACUTE RESPIRATORY FAILURE WITH HYPERCAPNIA Status: Resolved (2) COPD exacerbation Code(s): J44.1 - CHRONIC OBSTRUCTIVE PULMONARY DISEASE W (ACUTE) EXACERBATION Status: Acute (3) DM type 2 (diabetes mellitus, type 2) Status: Chronic Qualifiers: Diabetes mellitus complication status: without complication Diabetes mellitus halfway insulin use: with halfway use Qualified Code(s): E11.9 - Type 2 diabetes mellitus without complications; Z79.4 - [facility] (current) use of insulin; Z79.4 - [facility] (current) use of insulin; Z79.4 - termite exterminator helper ( current) use of insulin; Z79.4 - [facility] (current) use of insulin (4) HLD (hyperlipidemia) Code(s): E78.5 - HYPERLIPIDEMIA, UNSPECIFIED Status: Chronic (5) HTN (hypertension) Code(s): I10 - ESSENTIAL (PRIMARY) HYPERTENSION Status: Chronic (6) CAP (community acquired pneumonia) Code(s): J18.9 - PNEUMONIA, UNSPECIFIED ORGANISM Status: Acute (7) Obesity (BMI 30-39.9) Code(s): E66.9 - OBESITY, UNSPECIFIED Status: Acute (8) Influenza A Code(s): J10.1 - FLU DUE TO OTH IDENT INFLUENZA VIRUS W OTH RESP MANIFEST Status: Acute (9) Physical deconditioning Code(s): R53.81 - OTHER MALAISE Status: Acute (10) COSME (obstructive sleep apnea) Code(s): G47.33 - OBSTRUCTIVE SLEEP APNEA (ADULT) (PEDIATRIC) Status: Chronic (11) Gastritis Code(s): K29.70 - GASTRITIS, UNSPECIFIED, WITHOUT BLEEDING Status: Acute Comment: s/p egd cont ppi - Plan * doing well * possible d/c in am * pulm input appreciated
[2017-11-19 06:35] LABS: #Basophils 0.1 thou/uL (0.0-0.2); #Eosinphils 0.1 thou/uL (0.0-0.7); #Lymphocytes 1.8 thou/uL (1.20-3.40); #Monocytes 0.8 thou/uL (0.11-0.59); #Neutrophils 6.1 thou/uL (1.40-6.50); %Basophils 0.9 % (0.0-1.0); %Eosinophils 1.7 % (0.0-10.0); %Lymphocytes 19.9 % (21.0-51.0); %Monocytes 8.8 % (0.0-10.0); %Neutrophils 68.7 % (42.0-75.0); Hemoglobin 13.1 g/dL (14.0-18.0); Mean Corpuscular HGB CONC 32.8 g/dL (32.0-36.0); Mean Corpuscular Hemoglobin 31.9 pg (27.0-31.0); Mean Corpuscular Volume 97.5 fl (80.0-94.0); Platelet Count 298 thou/uL (130-400); RBC Distribution Width 12.4 % (11.5-14.5); Red Blood Cell (RBC) Count 4.11 mill/uL (4.70-6.10); White Blood Cell (WBC) Count 8.9 thou/uL (4.8-10.8)
[2017-11-19 06:48] LABS: Anion Gap 18 mmol/L (10-20); BUN (Urea Nitrogen) 8 mg/dL (8.4-25.7); Calc. Creatinine Clearance 218 mL/min (70-130); Calcium 9.2 mg/dL (7.8-10.44); Carbon Dioxide 26 mmol/L (22-29); Chloride 98 mmol/L (98-107); Estimated GFR-MDRD Greater than 90; Glucose 126 mg/dL (70-105); Magnesium 1.6 mg/dL (1.6-2.6); Phosphorus 4.6 mg/dL (2.3-4.7); Potassium 3.6 mmol/L (3.5-5.1); Sodium 138 mmol/L (136-145)
[2017-11-19] MEDS: Furosemide 40 MG TAB PO SCH (08:55)
[2017-11-19] MEDS: Enoxaparin Sodium 40 MG/0.4 ML SYRINGE SC SCH (08:55)
[2017-11-19] MEDS: Carvedilol 6.25 MG TAB PO SCH ×2 (08:55→17:15)
[2017-11-19] MEDS: busPIRone HCl 10 MG TAB PO SCH ×2 (08:55→20:10)
[2017-11-19] MEDS: NPH, Human Insulin Isophane 300 UNIT/3 ML VIAL SC SCH ×2 (08:56→20:11)
[2017-11-19] MEDS ORDERED: NPH, Human Insulin Isophane 300 UNIT/3 ML VIAL SC SCH (10:00)
[2017-11-19] MEDS: HumaLOG 300 UNITS/3 ML VIAL SC PRN ×2 (11:52→17:15)
--- NOTE | 2017-11-19 17:58 | PDOC.PN ---
- Subjective Encounter Start Date: 11/19/17 Encounter Start Time: 17:57 Patient seen and examined. No new complaints. No overnight events - Objective MAR Reviewed: Yes Vital Signs & Weight: Vital Signs (12 hours) Temp Pulse Pulse Resp BP BP BP 11/19/17 17:15 164/92 H 11/19/17 12:10 85 149/97 H 11/19/17 11:08 11/19/17 08:58 95 149/97 H 11/19/17 08:05 98 F 77 20 187/70 H 11/19/17 08:00 98 F 77 20 11/19/17 06:37 62 20 Pulse Ox Pulse Ox Pulse Ox 11/19/17 17:15 11/19/17 12:10 11/19/17 11:08 94 L 96 11/19/17 08:58 95 11/19/17 08:05 94 L 11/19/17 08:00 11/19/17 06:37 97 Weight Admit Weight 291 lb Weight 273 lb 1.6 oz Most Recent Monitor Data Heart Rate from ECG 68 NIBP 173/63 NIBP BP-Mean 125 Respiration from ECG 24 SpO2 96 I&O: 11/18/17 11/19/17 11/20/17 06:59 06:59 06:59 Intake Total 2058 1700 Output Total 880 3450 Balance 1178 -1750 Result Diagrams: 11/19/17 05:27 11/19/17 05:27 Additional Labs: Accuchecks 11/19/17 11/19/17 11/19/17 15:47 11:36 04:46 POC Glucose 168 H 183 H 113 H 11/18/17 19:19 POC Glucose 148 H Phys Exam - Physical Examination Constitutional: NAD HEENT: PERRLA Neck: no JVD Respiratory: no wheezing Cardiovascular: no significant murmur Gastrointestinal: non-tender Musculoskeletal: pulses present Neurological: moves all 4 limbs Psychiatric: A&O x 3 Dx/Plan (1) Acute respiratory failure with hypoxia and hypercapnia Code(s): J96.01 - ACUTE RESPIRATORY FAILURE WITH HYPOXIA; J96.02 - ACUTE RESPIRATORY FAILURE WITH HYPERCAPNIA Status: Resolved (2) COPD exacerbation Code(s): J44.1 - CHRONIC OBSTRUCTIVE PULMONARY DISEASE W (ACUTE) EXACERBATION Status: Acute (3) DM type 2 (diabetes mellitus, type 2) Status: Chronic Qualifiers: Diabetes mellitus complication status: without complication Diabetes mellitus terminal operations supervisor insulin use: with terminal operations supervisor use Qualified Code(s): E11.9 - Type 2 diabetes mellitus without complications; Z79.4 - group home (current) use of insulin; Z79.4 - assistant terminal manager (current) use of insulin; Z79.4 - group home ( current) use of insulin; Z79.4 - assistant terminal manager (current) use of insulin (4) HLD (hyperlipidemia) Code(s): E78.5 - HYPERLIPIDEMIA, UNSPECIFIED Status: Chronic (5) HTN (hypertension) Code(s): I10 - ESSENTIAL (PRIMARY) HYPERTENSION Status: Chronic (6) CAP (community acquired pneumonia) Code(s): J18.9 - PNEUMONIA, UNSPECIFIED ORGANISM Status: Acute (7) Obesity (BMI 30-39.9) Code(s): E66.9 - OBESITY, UNSPECIFIED Status: Acute (8) Influenza A Code(s): J10.1 - FLU DUE TO OTH IDENT INFLUENZA VIRUS W OTH RESP MANIFEST Status: Acute (9) Physical deconditioning Code(s): R53.81 - OTHER MALAISE Status: Acute (10) COSME (obstructive sleep apnea) Code(s): G47.33 - OBSTRUCTIVE SLEEP APNEA (ADULT) (PEDIATRIC) Status: Chronic (11) Gastritis Code(s): K29.70 - GASTRITIS, UNSPECIFIED, WITHOUT BLEEDING Status: Acute Comment: s/p egd cont ppi - Plan * doing good * case mx helping with placement * d/c when bed ready
[2017-11-20 05:44] LABS: #Basophils 0.1 thou/uL (0.0-0.2); #Eosinphils 0.1 thou/uL (0.0-0.7); #Lymphocytes 1.5 thou/uL (1.20-3.40); #Monocytes 0.6 thou/uL (0.11-0.59); #Neutrophils 5.4 thou/uL (1.40-6.50); %Basophils 0.8 % (0.0-1.0); %Lymphocytes 20.1 % (21.0-51.0); %Monocytes 8.4 % (0.0-10.0); %Neutrophils 69.8 % (42.0-75.0); Hemoglobin 12.1 g/dL (14.0-18.0); Mean Corpuscular HGB CONC 33.3 g/dL (32.0-36.0); Mean Corpuscular Hemoglobin 32.5 pg (27.0-31.0); Mean Corpuscular Volume 97.5 fl (80.0-94.0); Mean Platelet Volume 8.3 fL (7.4-10.4); Platelet Count 278 thou/uL (130-400); RBC Distribution Width 12.4 % (11.5-14.5); Red Blood Cell (RBC) Count 3.72 mill/uL (4.70-6.10); White Blood Cell (WBC) Count 7.7 thou/uL (4.8-10.8)
[2017-11-20 08:27] LABS: Anion Gap 14 mmol/L (10-20); BUN (Urea Nitrogen) 7 mg/dL (8.4-25.7); Calc. Creatinine Clearance 200 mL/min (70-130); Calcium 8.8 mg/dL (7.8-10.44); Carbon Dioxide 31 mmol/L (22-29); Chloride 98 mmol/L (98-107); Estimated GFR-MDRD Greater than 90; Glucose 153 mg/dL (70-105); Magnesium 1.5 mg/dL (1.6-2.6); Phosphorus 3.6 mg/dL (2.3-4.7); Potassium 3.3 mmol/L (3.5-5.1); Sodium 140 mmol/L (136-145)
[2017-11-20] MEDS: Carvedilol 6.25 MG TAB PO SCH (08:34)
[2017-11-20] MEDS: Furosemide 40 MG TAB PO SCH (08:34)
[2017-11-20] MEDS: busPIRone HCl 10 MG TAB PO SCH (08:35)
[2017-11-20] MEDS: Enoxaparin Sodium 40 MG/0.4 ML SYRINGE SC SCH (08:35)
[2017-11-20] MEDS: NPH, Human Insulin Isophane 300 UNIT/3 ML VIAL SC SCH (08:36)
[2017-11-20] MEDS ORDERED: Potassium Chloride 20 MEQ TAB PO SCH (10:30)
--- NOTE | 2017-11-20 12:01 | DIS ---
DATE OF ADMISSION: 11/04/2017 DATE OF DISCHARGE: 11/20/2017 PRIMARY CARE PROVIDER: Dr. Marbella Bender DISCHARGE DIAGNOSES: 1. Acute hypoxic and hypercapnic respiratory failure. 2. Chronic obstructive pulmonary disease exacerbation. 3. Influenza A infection. 4. Bilateral pneumonia. 5. Stress gastritis and duodenitis. CONSULTATIONS DURING THIS HOSPITALIZATION: Pulmonology, Dr. Freeman, and Gastroenterology, Dr. Tucker Sandoval. CONDITION OF PATIENT ON THE DAY OF DISCHARGE: Stable. I assessed Mr. Villafuerte on the day of discharge. He denies any chest pain or shortness of breath. PHYSICAL EXAMINATION: VITAL SIGNS: Stable. HEART: S1 and S2 are heard, regular. LUNGS: Clear to auscultation bilaterally. DISCHARGE MEDICATIONS: Aspirin 81 mg daily, BuSpar 10 mg 3 times a day, carvedilol 25 mg 2 times a d ay, clonazepam 0.5 mg 2 times a day, Lasix 20 mg 2 times a day, gabapentin 600 mg 3 times a day, Leve rafael insulin 45 units daily, DuoNebs p.r.n., lisinopril 40 mg daily, metformin 1000 mg 2 times a day, Protonix 40 mg daily, potassium chloride 20 mEq daily, sertraline 100 mg daily, and spironolactone 25 mg daily. HOSPITAL COURSE: Mr. Villafuerte is a pleasant 62-year-old gentleman who was admitted to [facility] on 11/04/2017 after intubation in the emergency room at [place] and was subsequ ently transferred to [facility] for acute hypoxic and hypercapnic respiratory failure secondary to acute exacerbation. He was admitted to the Critical Care Unit. He was seen by Pulmonology Service. He was also found to be positive for influenza A. He was treated with antibiot ics as well as Tamiflu. On 11/13/2017, he had bright red nasogastric tube output and high gastric residuals. He was started on Protonix and metoclopramide. He was seen by Gastroenterology Service. He had an EGD on 8, which showed stress gastritis and duodenitis. He was extubated on 11/16/2017. He was transferred to the medical floor. He continued to improve. Initial plan was to discharge him to [facility] facility or inpatient rehabilitation. However, bed was not available. Meanwhile, patient also continued to improve in terms of mobility. He is brian ng discharged home with home health for physical therapy. On the day of discharge, he has sodium 140, potassium 3.3, which is being replaced, creatinine 0.66, white count 7700, hemoglobin 12.1, and platelet count 278,000. Please note that during this hospitalization, he was also in volume overload and received intravenous furosemide. BNP during this admission was normal at 89.9 on 11/04/2017. He had a CT dissection protocol on 11/04/2017, which did not reveal any evidence for aortic aneurysm or dissection. There was no central pulmonary artery thrombosis. He also had CT scan of the abdomen and pelvis on 11/15/2017, which showed small right and tiny left pleural effusions with atelectasis. He also had a nonobstructing right renal calculus and vascular calcifications. There was no acute findings. Many thanks for allowing me to participate in your patient's care. Please feel free to contact me if any questions or concerns. DISCHARGE DESTINATION: Home. TOTAL AMOUNT OF TIME SPENT COORDINATING THIS DISCHARGE: 38 minutes.
[2017-11-20 12:08] VITALS: BP 137/77; TEMP 98.2
--- NOTE | 2017-11-26 09:32 | PQF ---
YAEL SANDERS DAMODHARAN [id number] CLINICAL DOCUMENTATION CLARIFICATION FORM: POST DISCHARGE Addendum to original discharge summary date: ____ Late entry note date: __ TOMMYKYLEYAEL [id number] JUAN FRANCISCO GONZALEZ YOUR INPUT IS NEEDED TO CORRECTLY CODE A DIAGNOSIS FOR YOUR PATIENT. DATE: 11/26/2017 ATTN: DR. GONZALEZ Please exercise your independent, professional judgment in responding to the clarification form. Clinical indicators are provided on the bottom of this form for your review Please check appropriate box(s) to clarify if the following diagnosis has been ruled in our ruled out: SEPSIS (CDI/Coding list diagnosis here) [ ] Ruled in diagnosis [ ] Continue to treat [ ] Resolved [ ] Ruled out diagnosis [ ] Cannot rule out diagnosis [ ] Other diagnosis [ ] Unable to determine In addition, please specify: Present on Admission (POA): [ ] Yes [ ] No [ ] Unable to determine For continuity of documentation, please document condition throughout progress notes and discharge summary. Thank You. CLINICAL INDICATORS - SIGNS / SYMPTOMS / LABS: VITALS: BP: 114/74, PULSE: 96, RESP: 14, TEMP: 96 H&P - SEPSIS WITH ELEVATED WHITE COUNT 22 11/08 PN - SEPSIS PRESUMED FROM RESPIRATORY FAILURE DS - ACUTE HYPOXIC AND HYPERCAPNIC RESPIRATORY FAILURE INFLUENZA A, PNEUMONIA RISK FACTORS: INFLUENZA PNEUMONIA RESPIRATORY FAILURE TREATMENTS: ANTIBIOTICS (This form is maintained as a part of the permanent medical record) 2014 [employer]. All Rights Reserved Temo Moeller MARY ELLEN, [facility] [email or web address] [phone] [facility]
--- NOTE | 2017-11-29 14:08 | EKG ---
Test Reason : COPD Blood Pressure : / mmHG Vent. Rate : 091 BPM Atrial Rate : 091 BPM P-R Int : 194 ms QRS Dur : 172 ms QT Int : 432 ms P-R-T Axes : 079 -48 114 degrees QTc Int : 531 ms Electronic ventricular pacemaker Confirmed by ANDRA GUTIERREZ MD ([id number]), food expeditor SARAH KEITH ([id number]) on 11/29/2017 2:07:33 PM Referred By: BRENDA Confirmed By:ANDRA GUTIERREZ MD
== END 2017-11-20 12:22 | disposition home health service (06) | DRG 207 ==
LOC: ERS 18:57 → CCU 19:54 → T4-B 11-17 18:08
PROVIDERS: ADMIT Internal Medicine; ATTEND Internal Medicine
PROC: 5A1955Z Respiratory Ventilation, Greater than 96 Consecutive Hours (ICD-10-PCS; principal; 2017-11-04)
PROC: 0DJ08ZZ Inspection of Upper Intestinal Tract, Via Natural or Artificial Opening Endoscopic (ICD-10-PCS; 2017-11-04)
DX: J96.01 Acute respiratory failure with hypoxia (principal); I50.33 Acute on chronic diastolic (congestive) heart failure; J11.00 Influenza due to unidentified influenza virus with unspecified type of pneumonia; I11.0 Hypertensive heart disease with heart failure; J44.0 Chronic obstructive pulmonary disease with (acute) lower respiratory infection; J44.1 Chronic obstructive pulmonary disease with (acute) exacerbation; J98.11 Atelectasis; J96.02 Acute respiratory failure with hypercapnia; Z95.0 Presence of cardiac pacemaker; E66.01 Morbid (severe) obesity due to excess calories; G47.33 Obstructive sleep apnea (adult) (pediatric); F17.210 Nicotine dependence, cigarettes, uncomplicated; K29.80 Duodenitis without bleeding; E11.65 Type 2 diabetes mellitus with hyperglycemia; Z79.4 Long term (current) use of insulin; N20.0 Calculus of kidney; Z95.810 Presence of automatic (implantable) cardiac defibrillator; E78.5 Hyperlipidemia, unspecified; Z68.30 Body mass index [BMI] 30.0-30.9, adult; K29.00 Acute gastritis without bleeding; Z78.1 Physical restraint status
CPT/HCPCS: 36415; 36416; 71010; 71045; 71275; 74018; 74019; 74177; 80048; 80053; 80202; 81001; 82805; 83605; 83735; 83880; 84100; 84484; 85025; 86850; 86900; 86901; 93005; 94002; 94003; 94640; 96365; 96375; 96376; 99292; A4216; C9113; G8978-GP-CM; G8979-GP-CJ; G8987-GO-CJ; G8988-GO-CI; J0131; J0360; J1120; J1650; J1815; J1940; J1956; J2060; J2270; J2543; J2704; J2765; J2920; J3010; J3370; J3475; J3480; J7050; J7611; J7620; S0028

== ENCOUNTER 2019-09-06 20:52 | Inpatient (IN) | payer OTHER, MEDICARE ==
--- NOTE | 2019-09-06 21:59 | PDOC.FPRHP ---
- History of Present Illness Chief Complaint: Couch, SOB, Body aches History of Present Illness: 64-year-old male with a past medical history of hypertension, hyperlipidemia, obstructive sleep apnea, and COPD with two prior hospitalizations for COPD exacerbations this year presents to the emergency apartment with a 3 to 4 day history of bodyaches, shortness of breath, sore/scratchy throat, sinus drainage , runny nose, and cough with increased green sputum production. Patient complains of palpitations and chills. Patient denies any chest pain or fever. Patient states that he has to sleep with two pillows and his BiPAP to keep from getting very short of breath. The past two nights a patient has woken up in the middle of the night very short of breath. Patient states he can walk about 20 feet before needing to rest after becoming short of breath. Patient denies any chest pain with exertion. Patient reports to have some nausea but no vomiting or diarrhea. Patient was originally evaluated at the [place] emergency Department. Patient was transferred to [facility] for admission for COPD exacerbation. Chest x-ray showed consolidation of the left lower lobe versus pneumonia. Flu A/ B was negative. Strep swab negative.Patient was given 1 g of Rocephin and Dunebs in the emergency department. - Allergies/Adverse Reactions Allergies Allergy/AdvReac Type Severity Reaction Status Date / Time No Known Allergies Allergy Verified 09/07/19 00:19 - Home Medications Medication Instructions Recorded Confirmed Type Aspirin [Aspir-Low] 81 mg PO DAILY 12/22/16 09/07/19 History Carvedilol 25 mg PO BID 12/22/16 09/07/19 History Furosemide [Lasix] 20 mg PO BID 12/22/16 09/07/19 History Gabapentin 900 mg PO TID 12/22/16 09/07/19 History Lisinopril 20 mg PO DAILY 12/22/16 09/07/19 History Potassium Chloride [K-Dur] 20 meq PO DAILY 12/22/16 09/07/19 History Sertraline HCl 100 mg PO DAILY 12/22/16 09/07/19 History Spironolactone 25 mg PO DAILY 12/22/16 09/07/19 History busPIRone HCl [Buspar] 10 mg PO TID 12/22/16 09/07/19 History clonazePAM 0.5 mg PO BID 12/22/16 09/07/19 History metFORMIN HCl 1,000 mg PO BID-WM 12/22/16 09/07/19 History Albuterol Sulfate [Proventil Hfa] 2 puff INH Q4H PRN 05/26/19 09/07/19 History Atorvastatin Calcium 80 mg PO HS 05/26/19 09/07/19 History Insulin Aspart [Novolog] 35 unit SQ QAM-WM 05/26/19 09/07/19 History Insulin Detemir [Levemir] 70 unit SQ QAM 05/26/19 09/07/19 History Tiotropium [place] [Spiriva] 18 mcg IH DAILY 05/26/19 09/07/19 History Folic Acid 1 mg PO HS 09/07/19 09/07/19 History Iron 18 mg PO DAILY 09/07/19 09/07/19 History Vit D3/Folic Acid/B2/B6/B12 1 tablet PO DAILY 09/07/19 09/07/19 History [Folgard] - History PMHx: COPD with X2 hx this year. HTN, Insulin dependent DM II, HLD, COSME, HFpEF with pacer/defibrillator, SHARRON, MDD PSHx: Pacer/defibrillator placement FHx: Mother: HTN, CVA. Father: MD at age 58. Siblings: CAD, HTN, DM. Social: [place] from [place]. Smoked 1.5 ppd for 40 years, recently down to 0.5 ppd. Trying to quit with use of patch. Prior abuse of etoh, none in 15 years. Prior illicit drug abuse when younger, none recently, denies any IVDA ever. - Review of Systems General: reports: fever/chills (no fever, + chills) ENT: reports: nasal congestion, rhinorrhea Respiratory: reports: cough, congestion, shortness of breath, exercise intolerance Cardiovascular: reports: palpitation, edema, paroxysmal nocturnal dyspnea, orthopnea (X2 pillow). denies: chest pain Gastrointestinal: reports: nausea. denies: vomiting, diarrhea, constipation, abdominal pain, GI bleeding Skin: denies: rashes Psychological: reports: anxiety, depression (denies S/H/I) - Vital signs BP: 117/66 HR: 97 RR: 20 Tmax: 98.4 Pox: 95%% on 2L NC Wt: 138 kg - Physical Exam Constitutional: NAD, awake, alert and oriented, well developed HEENT: normocephalic and atraumatic, PERRLA, EOMI, conjunctiva clear, no scleral icterus, grossly normal vision, grossly normal hearing, MMM -HEENT: oropharynx erythematous, no exudates. nasal turbinates erythematous. Neck: supple, FROM, trachea midline, no JVD Chest: no-tender to palpation, no lesions Heart: RRR, normal S1/S2, no murmurs/rubs/gallops, pulses present -Heart: Trace BLE to mid-vargas Lungs: no respiratory distress -Lungs: Diffuse Crackles Diminished breath sounds throughout all lung kim/ Abdomen: soft, non-tender, bowel sounds present -Abdomen: obese abdomen Musculoskeletal: normal structure, normal tone, ROM grossly normal Neurological: no focal deficit, normal sensation Skin: no rash/lesions, good turgor, capillary refill <2 seconds, no jaundice Heme/Lymphatic: no unusual bruising or bleeding, no purpura, no petechia Psychiatric: normal mood and affect, good judgment and insight, intact recent and remote memory FMR H&P: Results - Labs Result Diagrams: 09/07/19 05:57 09/07/19 05:57 Lab results: Laboratory Tests 09/06/19 09/06/19 09/06/19 17:18 17:18 17:18 WBC 11.2 H RBC 4.44 L Hgb 13.2 L Hct 42.2 MCV 94.9 Neutrophils % 71.8 Lymphocytes % 19.5 L Monocytes % 5.8 Neutrophils # 8.1 H Lymphocytes # 2.2 Monocytes # 0.7 H Sodium 138 Potassium 4.3 Chloride 96 L Carbon Dioxide 30 Anion Gap 16 BUN 22 Creatinine 1.16 Estimated GFR (MDRD) 64 Glucose 255 H Lactic Acid Calcium 9.7 Total Bilirubin 0.2 AST 10 ALT 16 Alkaline Phosphatase 139 H Creatine Kinase 102 Troponin I Less than 0.010 B-Natriuretic Peptide Serum Total Protein 7.2 Albumin 4.1 Globulin 3.1 Albumin/Globulin Ratio 1.3 09/06/19 09/06/19 17:18 17:18 WBC RBC Hgb Hct MCV Neutrophils % Lymphocytes % Monocytes % Neutrophils # Lymphocytes # Monocytes # Sodium Potassium Chloride Carbon Dioxide Anion Gap BUN Creatinine Estimated GFR (MDRD) Glucose Lactic Acid 2.1 Calcium Total Bilirubin AST ALT Alkaline Phosphatase Creatine Kinase Troponin I B-Natriuretic Peptide Less than 10.0 Serum Total Protein Albumin Globulin Albumin/Globulin Ratio - EKG Interpretation EKG: NSR 90 rate LVH - Radiology Interpretation Chest x-ray Status: image reviewed by me, report reviewed by me (LLL consolidation, atelectasis vs pneumonia.) FMR H&P: A/P - Problem List (1) Viral URI with cough Current Visit: Yes Status: Acute Code(s): J06.9 - ACUTE UPPER RESPIRATORY INFECTION, UNSPECIFIED; B97.89 - OTH VIRAL AGENTS THE CAUSE OF DISEASES CLASSD ELSWHR (2) Acute and chronic respiratory failure Current Visit: Yes Status: Acute Code(s): J96.20 - ACUTE AND CHR RESP FAILURE, UNSP W HYPOXIA OR HYPERCAPNIA (3) COPD exacerbation Current Visit: Yes Status: Acute Code(s): J44.1 - CHRONIC OBSTRUCTIVE PULMONARY DISEASE W (ACUTE) EXACERBATION (4) Depression Current Visit: Yes Status: Acute Code(s): F32.9 - MAJOR DEPRESSIVE DISORDER , SINGLE EPISODE, UNSPECIFIED (5) Insulin dependent diabetes mellitus Current Visit: Yes Status: Acute Code(s): E11.9 - TYPE 2 DIABETES MELLITUS WITHOUT COMPLICATIONS; Z79.4 - ASSEMBLING FABRICATOR (CURRENT) USE OF INSULIN (6) Physical deconditioning Current Visit: Yes Status: Acute Code(s): R53.81 - OTHER MALAISE (7) HLD (hyperlipidemia) Current Visit: Yes Status: Chronic Code(s): E78.5 - HYPERLIPIDEMIA, UNSPECIFIED (8) HTN (hypertension) Current Visit: Yes Status: Chronic Code(s): I10 - ESSENTIAL (PRIMARY) HYPERTENSION (9) Morbid obesity Current Visit: Yes Status: Chronic Code(s): E66.01 - MORBID (SEVERE) OBESITY DUE TO EXCESS CALORIES (10) COSME (obstructive sleep apnea) Current Visit: Yes Status: Chronic Code(s): G47.33 - OBSTRUCTIVE SLEEP APNEA (ADULT) (PEDIATRIC) (11) CHF (congestive heart failure) Current Visit: Yes Status: Suspected Code(s): I50.9 - HEART FAILURE, UNSPECIFIED (12) Tobacco abuse disorder Current Visit: Yes Status: Acute Code(s): Z72.0 - TOBACCO USE - Plan 64 y/o M admitted to inpatient medical for evaluation and treatment of Acute on Chronic respiratory failure 2/2 to Acute COPD Exacerbation, and acute URI likely viral. 1. Acute on Chronic Respiratory Failure - 2/2 COPD exacerbation from an acute URI, likely viral. - Continuous O2 per home 2 L NC, to keep O2 saturation between 88-92% - Flu A/B negative 2. COPD Exacerbation - Most likely caused by an acute URI viral infection - Continue Rocephin 1 G daily and Azithromycin 500 mg, then 250 mg for 4 days. - Prednisone 40 mg PO daily for 5 days - Duonebs ILANA Q4H, switch to PRN pending improvement in respiratory status. - Sputum GS and culture ordered - CXR consistent with LLL consolidation vs Pneumonia. Pulmonary sono in ED consistent with atelectasis - Procal ordered 3. Acute URI, likely viral - Most likely trigger for COPD exacerbation - Flu A/B negative - Continue dunebs, acetaminophen for joint and muscle aches. 4. Hx of COSME - BIPAP per home, QHS ordered 5. Hx of HTN - restart lisinopril and carvedilol 6. Insulin Dependent DM II - Continue home dose of Lantus 75 units QAM - Aggressive SSI bolus with meals. - CC diet 7. Hx of HRpEF - Continue home lasix PO dose 20 mg BID - Continue home HF meds - Consider Echo if respiratory symptoms not improved with above interventions. Most likely diagnosis pulmonary in character. - S/P pacer/defibrillator - Strict I/O, daily weights ordered - diet 8. Hx of HLD - Continue home 80 mg lipitor daily 9. Hx of SHARRON and MDD - Slight increase in anxiety and depressive symptoms - Denies any suicidal/homicidal ideation - Continue home medications 10. Tobacco abuse d/o - Nicotine patch ordered - Counseled on cessation of smoking for COPD Code Status: Full Code DVT ppx: Lovenox Diet: CC, Dispo: Stable, admit to inpatient medical for acute on chronic respiratory failure 2/2 COPD exacerbation. Anticipate >2 midnight hx stay. FMR H&P: Upper Level - Pertinent history 64 y/o M PMHx CHF, DM2, obesity, HLD, HTN, COPD, PTSD, tobacco abuse, chronic respiratory failure on 2L home O2 presented to [facility] ED for worsened SOB. He reports the past 3-4 days he has had worsened dyspnea, productive cough , sore throat, rhinorrhea, body aches. He denies any fevers, chills. He reports daily orthopnea and occasional PND. He denies any worsened LE swelling. He has a sick contact of a URI. He has been having to use his neb every 3-4 hours with minimal improvement in symptoms. He was evaluated in [place] and found to have stable vital signs and concern for possible LLL PNA based on CXR so he was given 1g rocephin. He was given 2 duonebs en route with EMS. He remains on 2L O2. - Pertinent findings BP: 116/63, Pulse: 98, Resp: 20, Temp: 98.3 (Oral), O2 sat: 95 on 2L Oxygen PE: Gen - alert, oriented, appears in mild respiratory distress with increased breathing effort CV - RRR, no murmurs Lungs - diffuse crackles, worse on R side with few end expiratory wheezes Abd - protuberant, soft, NTTP Ext - trace pedal edema Labs: Trop < 0.010, BNP < 10, WBC 11.2, Hb 13.2, Cr 1.16, GFR 64, Lactic acid 2.1, Flu neg, strep neg CXR: bilateral pleural effusions, bibasilar opacities L > R, cannot exclude LLL PNA. - Plan Date/Time: 09/06/192156 I, Ethel Esquivel MD, PGY-3, have evaluated this patient and agree with findings/ plan as outlined by risk intern resident. Pertinent changes/additions are listed here. 1. Acute COPD Exacerbation Pt with increased sputum production and cough with associated dyspnea. Suspect this was triggered by viral illness. Pt with 2 hospitalizations for COPD in past year. On spiriva and symbicort at home, but does not take his symbicort regularly as it makes him feel poorly. -Prednisone -Azithromycin -Duonebs q4h -Continue home inhalers and dormitory counselor about medication compliance 2. Community Acquired Pneumonia, rule-out CXR unable to rule out. Suspect more likely atelectasis. Pt with no fever and on home O2 at this time. s/p 1g rocephin. -Will continue rocephin until cultures negative -Blood cultures -Sputum cultures and gram stain -Procalcitonin 3. CHF Pt with BNP < 10 and recent echo 05/27/19 was limited study, but showed EF 55-60% . -Continue home lasix, lisinopril, coreg, spironolactone -Strict I/O's, daily weights -If no improvement with current course, consider repeating echo and increasing lasix 4. DM2 -Continue home meds -SSI -Accuchecks -CC diet 5. HTN -Continue home lisinopril, coreg 6. PTSD -Continue home meds 7. Chronic Respiratory Failure -Continue home O2 at 2L 8. COSME on BiPAP -Continue BiPAP at night 9. Tobacco Abuse -Accounts Payable Assistant on cessation -Nicoderm patch VTE ppx: Lovenox Code Status: Full Dispo: Admit to medical LOS: Likely greater than 48 hours Addendum - Attending - Attending Attestation Date/Time: 09/07/19 [id number] I personally evaluated the patient and discussed the management with Dr. Esquivel on 09/06. I agree with the History, Examination, Assessment and Plan documented above with any addition or exceptions noted below. On exam patient tachypneic but in no distress. Satting well and speaking in full sentences. RRR s M, edema as listed. Lungs with some wheezing, crackles in right base and diminished in left base. On POCUS atelectasis vs consolidation on right, limited exam on left. No sig B lines seen. Continue antibiotics, being steroids and duonebs, consider diuresis. BNP could be low 2/2 lack of volume overload or obesity.
[2019-09-06] MEDS ORDERED: Dextrose 50% Abboject 50 ML SYRINGE SLOW IVP PRN (23:11)
[2019-09-06] MEDS ORDERED: Acetaminophen 325 MG TAB PO PRN (23:11)
[2019-09-06] MEDS ORDERED: Dextrose 5% in Water 1,000 ML IV PRN (23:11)
[2019-09-06] MEDS ORDERED: Ondansetron ODT 4 MG TAB PO PRN (23:11)
[2019-09-06] MEDS ORDERED: Azithromycin 500 MG in Sodium Chloride 0.9% 250 ML 250 ML IVPB SCH (23:59)
[2019-09-06] MEDS ORDERED: Nicotine 14 MG PATCH TD SCH (23:59)
[2019-09-07 00:24] VITALS: BMI 45.0
[2019-09-07] MEDS ORDERED: cefTRIAXone\\ROCEPHIN 1 GM in Sodium Chloride 0.9% 100 ML IVPB SCH (01:00)
[2019-09-07] MEDS: Ipratropium Bromide 2.5 ml Neb NEB SCH ×2 (01:41→07:13)
[2019-09-07] MEDS: Insulin Regular 300 UNITS/3 ML VIAL SC PRN ×4 (06:01→20:35)
[2019-09-07 06:29] LABS: #Basophils 0.1 thou/uL (0.0-0.2); #Eosinphils 0.3 thou/uL (0.0-0.7); #Lymphocytes 2.6 thou/uL (1.20-3.40); #Monocytes 0.9 thou/uL (0.11-0.59); #Neutrophils 7.2 thou/uL (1.40-6.50); %Basophils 0.5 % (0.0-1.0); %Eosinophils 2.5 % (0.0-10.0); %Lymphocytes 23.8 % (21.0-51.0); %Neutrophils 65.2 % (42.0-75.0); Hemoglobin 12.4 g/dL (14.0-18.0); Mean Corpuscular HGB CONC 33.6 g/dL (32.0-36.0); Mean Corpuscular Hemoglobin 31.6 pg (27.0-31.0); Mean Platelet Volume 7.9 fL (7.4-10.4); Platelet Count 235 thou/uL (130-400); RBC Distribution Width 12.4 % (11.5-14.5); Red Blood Cell (RBC) Count 3.92 mill/uL (4.70-6.10)
[2019-09-07 06:50] LABS: Anion Gap 13 mmol/L (10-20); BUN (Urea Nitrogen) 22 mg/dL (8.4-25.7); Calc. Creatinine Clearance 163 mL/min (70-130); Calcium 9.1 mg/dL (7.8-10.44); Carbon Dioxide 30 mmol/L (23-31); Chloride 97 mmol/L (98-107); Estimated GFR-MDRD 83; Glucose 195 mg/dL (80-115); Sodium 136 mmol/L (136-145)
--- NOTE | 2019-09-07 06:51 | PDOC.FM ---
- Subjective Subjective: No overnight events. Reports feeling very short of breath, unable to talk as much as he usually does. Denies chest pain. Poor appetite. - Objective MAR Reviewed: Yes Vital Signs & Weight: Vital Signs (12 hours) Temp Pulse Resp BP Pulse Ox 09/07/19 04:00 98.1 F 97 16 114/69 94 L 09/07/19 02:24 95 09/07/19 01:40 95 09/06/19 23:11 97.9 F 95 20 142/84 H 96 Weight Weight 138.346 kg Result Diagrams: 09/08/19 07:33 09/08/19 07:33 Phys Exam - Physical Examination Constitutional: NAD HEENT: moist MMs Neck: supple Respiratory: wheezing present Cardiovascular: RRR, no significant murmur Gastrointestinal: soft, non-tender, positive bowel sounds Musculoskeletal: no edema Neurological: moves all 4 limbs Psychiatric: normal affect, A&O x 3 Skin: no rash Dx/Plan - Plan Plan: 64 y/o M admitted to inpatient medical for evaluation and treatment of Acute on Chronic respiratory failure 2/2 to Acute COPD Exacerbation, and acute URI likely viral. Acute COPD exacerbation likely 2/2 viral URI vs CAP - CXR: LLL consolidation vs Pneumonia. Pulmonary sono in ED consistent with atelectasis - Flu A/B negative - Procal 0.03 - Continuous O2 per home 2 L NC, to keep O2 saturation between 88-92% - Continue Ceftriaxone, and 5 day course Azithromycin - Prednisone 40 mg PO daily x5 days - Duonebs ILANA Q4H, switch to PRN pending improvement in respiratory status. - Sputum GS and culture ordered - Ordered RVP, possibly stop antibiotics if + for viral infection Chronic Resp failure - Continue home O2 at 2L NC COSME - BIPAP per home, QHS ordered HTN - Continue lisinopril, carvedilol IDDMII - Continue home Lantus 75U qAM - Aggressive SSI, CC diet HFpEF s/p AICD - BNP <10 - Last echo 05/27/19 (poor visibility): EF 55-60% - Continue home meds - Consider Echo if respiratory symptoms not improved with above interventions - Strict I/O, daily weight, HH diet, fluid restriction HLD - Continue home Atorvastatin 80mg SHARRON, MDD - Continue home meds Tobacco abuse d/o - Nicotine patch - Counseled on cessation Code Status: Full DVT ppx: Lovenox Addendum - Attending - Attending Attestation Date/Time: 09/07/19 1005 I personally evaluated the patient and discussed the management with Dr. Ace. I agree with the History, Examination, Assessment and Plan documented above with any addition or exceptions noted below. The patient has an increased work of breathing when he is speaking. WE will get respiratory viral panel. Continue antibiotics and copd treatment for now.
[2019-09-07] MEDS: Insulin Glargine 75 UNITS in Pre-Filled Syringe 1 EACH SC SCH (08:51)
[2019-09-07] MEDS: Gabapentin 300 MG CAP PO SCH ×3 (08:52→20:33)
[2019-09-07] MEDS: busPIRone HCl 10 MG TAB PO SCH ×3 (08:52→20:33)
[2019-09-07] MEDS: Lisinopril 20 MG TAB PO SCH (08:52)
[2019-09-07] MEDS: Enoxaparin Sodium 40 MG/0.4 ML SYRINGE SC SCH (08:52)
[2019-09-07] MEDS: Aspirin 81 mg Enteric Coated Tablet PO SCH (08:52)
[2019-09-07] MEDS: Spironolactone 25 MG TAB PO SCH (08:53)
[2019-09-07] MEDS: Furosemide 20 MG TAB PO SCH ×2 (08:53→20:34)
[2019-09-07] MEDS: clonazePAM 0.5 MG TAB PO SCH ×2 (08:53→20:34)
[2019-09-07] MEDS: metFORMIN 500 MG TAB PO SCH ×2 (08:53→17:18)
[2019-09-07] MEDS: Ferrous Gluconate 324 MG TAB PO SCH (08:53)
[2019-09-07] MEDS: predniSONE 20 MG TAB PO SCH (08:53)
[2019-09-07] MEDS: Carvedilol 25 MG TAB PO SCH ×2 (08:53→17:19)
[2019-09-07] MEDS: Potassium Chloride 20 MEQ TAB PO SCH (08:53)
[2019-09-07] MEDS ORDERED: B2 PO SCH (09:00)
[2019-09-07] MEDS ORDERED: VIT D3 PO SCH (09:00)
[2019-09-07] MEDS ORDERED: B6 PO SCH (09:00)
[2019-09-07] MEDS ORDERED: FOLIC ACID PO SCH (09:00)
[2019-09-07] MEDS ORDERED: Nicotine 14 MG PATCH TD SCH (09:00)
[2019-09-07] MEDS ORDERED: B12 PO SCH (09:00)
[2019-09-07] MEDS: Stress 600 With Zinc 1 TAB PO SCH (13:03)
[2019-09-07] MEDS: cefTRIAXone\\ROCEPHIN 1 GM in Sodium Chloride 0.9% 100 ML IVPB SCH (17:20)
[2019-09-07] MEDS: Nicotine 14 MG PATCH TD SCH (18:06)
[2019-09-07] MEDS: Atorvastatin Calcium 40 MG TAB PO SCH (20:34)
[2019-09-07] MEDS: Folic Acid 1 MG TAB PO SCH (20:34)
[2019-09-07] MEDS: Azithromycin 500 MG in Sodium Chloride 0.9% 250 ML 250 ML IVPB SCH (20:34)
[2019-09-08] MEDS: Insulin Regular 300 UNITS/3 ML VIAL SC PRN ×4 (06:21→20:13)
--- NOTE | 2019-09-08 07:22 | PDOC.FM ---
- Subjective Subjective: RVP positive for Rhinovirus. Reports improvement in SOB. Able to speak in full sentences now. Denies chest pain, fevers, chills. - Objective MAR Reviewed: Yes Vital Signs & Weight: Vital Signs (12 hours) Temp Pulse Resp BP Pulse Ox 09/08/19 06:29 90 96 09/07/19 22:51 16 09/07/19 20:10 98 09/07/19 20:00 97.8 F 84 18 108/75 98 Weight Weight 136.486 kg I&O: 09/07/19 09/08/19 09/09/19 06:59 06:59 06:59 Intake Total 1070 Output Total 1100 Balance -30 Result Diagrams: 09/08/19 07:33 09/08/19 07:33 Phys Exam - Physical Examination Constitutional: NAD HEENT: moist MMs Neck: supple Respiratory: no wheezing, clear to auscultation bilateral Cardiovascular: RRR Gastrointestinal: soft, non-tender, positive bowel sounds Musculoskeletal: no edema Neurological: moves all 4 limbs Psychiatric: normal affect, A&O x 3 Skin: no rash Dx/Plan - Plan Plan: 64 y/o M admitted to inpatient medical for evaluation and treatment of Acute on Chronic respiratory failure 2/2 to Acute COPD Exacerbation, and acute URI likely viral. Acute COPD exacerbation likely 2/2 Rhinovirus vs CAP - CXR: LLL consolidation vs Pneumonia. Pulmonary sono in ED consistent with atelectasis - Flu A/B negative - Procal 0.03 - Rhinovirus positive on RVP - Continuous O2 per home 2 L NC, to keep O2 saturation between 88-92% - Continue Ceftriaxone, and 5 day course Azithromycin - Prednisone 40mg PO daily x5 days - Duonebs [facility] Q4H Chronic Resp failure - Continue home O2 at 2L NC Leukocytosis - 2/2 steroids COSME - BiPAP qHS HTN - Continue lisinopril, carvedilol IDDMII - Continue home Lantus 75U qAM - Required 27U SSI yesterday. Will start 25U qHS - Aggressive SSI, CC diet HFpEF s/p AICD - BNP <10 - Last echo 05/27/19 (poor visibility): EF 55-60% - Continue home meds - Consider Echo if respiratory symptoms not improved with above interventions - Strict I/O, daily weight, HH diet, fluid restriction HLD - Continue home Atorvastatin 80mg SHARRON, MDD - Continue home meds Tobacco abuse d/o - Nicotine patch - Counseled on cessation Code Status: Full DVT ppx: Lovenox Addendum - Attending - Attending Attestation Date/Time: 09/08/19 [id number] I personally evaluated the patient and discussed the management with Dr. cAe. I agree with the History, Examination, Assessment and Plan documented above with any addition or exceptions noted below. The patient is positive for rhinovirus. His breathing is improving. He can speak in complete sentences. Will continue current treatment.
[2019-09-08 08:19] LABS: #Basophils 0.1 thou/uL (0.0-0.2); #Eosinphils 0.2 thou/uL (0.0-0.7); #Lymphocytes 3.4 thou/uL (1.20-3.40); #Monocytes 0.8 thou/uL (0.11-0.59); #Neutrophils 8.7 thou/uL (1.40-6.50); %Basophils 0.5 % (0.0-1.0); %Eosinophils 1.6 % (0.0-10.0); %Lymphocytes 25.9 % (21.0-51.0); %Monocytes 6.2 % (0.0-10.0); %Neutrophils 65.8 % (42.0-75.0); Mean Corpuscular HGB CONC 33.8 g/dL (32.0-36.0); Mean Corpuscular Hemoglobin 31.5 pg (27.0-31.0); Mean Corpuscular Volume 93.3 fL (78.0-98.0); Mean Platelet Volume 7.9 fL (7.4-10.4); Platelet Count 257 thou/uL (130-400); RBC Distribution Width 12.3 % (11.5-14.5); Red Blood Cell (RBC) Count 4.13 mill/uL (4.70-6.10); White Blood Cell (WBC) Count 13.2 thou/uL (4.8-10.8)
[2019-09-08 08:33] LABS: Anion Gap 13 mmol/L (10-20); BUN (Urea Nitrogen) 18 mg/dL (8.4-25.7); Calc. Creatinine Clearance 178 mL/min (70-130); Calcium 9.1 mg/dL (7.8-10.44); Carbon Dioxide 31 mmol/L (23-31); Chloride 95 mmol/L (98-107); Estimated GFR-MDRD Greater than 90; Glucose 164 mg/dL (80-115); Potassium 3.8 mmol/L (3.5-5.1); Sodium 135 mmol/L (136-145)
[2019-09-08] MEDS ORDERED: FLU VACC QS2019-20(6MOS UP)/PF 60 MCG/0.5 ML SYRINGE IM ONE (09:00)
[2019-09-08] MEDS: Ferrous Gluconate 324 MG TAB PO SCH (09:04)
[2019-09-08] MEDS: Gabapentin 300 MG CAP PO SCH ×3 (09:04→20:11)
[2019-09-08] MEDS: metFORMIN 500 MG TAB PO SCH ×2 (09:05→17:24)
[2019-09-08] MEDS: clonazePAM 0.5 MG TAB PO SCH ×2 (09:05→20:11)
[2019-09-08] MEDS: Potassium Chloride 20 MEQ TAB PO SCH (09:05)
[2019-09-08] MEDS: predniSONE 20 MG TAB PO SCH (09:05)
[2019-09-08] MEDS: Lisinopril 20 MG TAB PO SCH (09:06)
[2019-09-08] MEDS: Carvedilol 25 MG TAB PO SCH ×2 (09:06→17:24)
[2019-09-08] MEDS: busPIRone HCl 10 MG TAB PO SCH ×3 (09:06→20:11)
[2019-09-08] MEDS: Aspirin 81 mg Enteric Coated Tablet PO SCH (09:07)
[2019-09-08] MEDS: Insulin Glargine 75 UNITS in Pre-Filled Syringe 1 EACH SC SCH (09:07)
[2019-09-08] MEDS: Stress 600 With Zinc 1 TAB PO SCH (09:07)
[2019-09-08] MEDS: Furosemide 20 MG TAB PO SCH ×2 (09:07→20:12)
[2019-09-08] MEDS: Spironolactone 25 MG TAB PO SCH (09:07)
[2019-09-08] MEDS: Enoxaparin Sodium 40 MG/0.4 ML SYRINGE SC SCH (09:08)
[2019-09-08] MEDS ORDERED: Melatonin 3 MG TAB PO PRN (10:48)
[2019-09-08] MEDS ORDERED: Fentanyl 100 MCG/2 ML VIAL ONE (11:10)
[2019-09-08] MEDS: cefTRIAXone\\ROCEPHIN 1 GM in Sodium Chloride 0.9% 100 ML IVPB SCH (17:24)
[2019-09-08] MEDS: Nicotine 14 MG PATCH TD SCH (17:25)
[2019-09-08] MEDS: Folic Acid 1 MG TAB PO SCH (20:12)
[2019-09-08] MEDS: Atorvastatin Calcium 40 MG TAB PO SCH (20:12)
[2019-09-08] MEDS: Azithromycin 500 MG in Sodium Chloride 0.9% 250 ML 250 ML IVPB SCH (20:13)
[2019-09-08] MEDS ORDERED: Insulin Glargine 25 UNITS in Pre-Filled Syringe 1 EACH SC SCH (21:00)
--- NOTE | 2019-09-09 06:58 | PDOC.FM ---
- Subjective Subjective: No overnight events. SOB has improved. Denies fevers, chills. Does endorse congestion. - Objective MAR Reviewed: Yes Vital Signs & Weight: Vital Signs (12 hours) Temp Pulse Resp BP Pulse Ox 09/08/19 22:22 91 16 94 L 09/08/19 20:00 97.7 F 75 18 101/62 89 L Weight Weight 136.94 kg I&O: 09/07/19 09/08/19 09/09/19 06:59 06:59 06:59 Intake Total 1070 Output Total 1100 Balance -30 Result Diagrams: 09/08/19 07:33 09/08/19 07:33 Phys Exam - Physical Examination Constitutional: NAD HEENT: moist MMs Neck: supple Respiratory: wheezing present Cardiovascular: RRR, no significant murmur Gastrointestinal: soft, non-tender, positive bowel sounds Musculoskeletal: no edema Neurological: moves all 4 limbs Psychiatric: normal affect, A&O x 3 Skin: no rash Dx/Plan - Plan Plan: 64 y/o M admitted to inpatient medical for evaluation and treatment of Acute on Chronic respiratory failure 2/2 to Acute COPD Exacerbation, and acute URI likely viral. Acute COPD exacerbation likely 2/2 Rhinovirus vs CAP - CXR: LLL consolidation vs Pneumonia. Pulmonary sono in ED consistent with atelectasis - Flu A/B negative - Procal 0.03 - Rhinovirus positive on RVP - Continuous O2 per home 2 L NC, to keep O2 saturation between 88-92% - Transition to Amoxicillin from Ceftriaxone, continue 5 day course Azithromycin - Prednisone 40mg PO daily x5 days - Duonebs ILANA Q4H Chronic Resp failure - Continue home O2 at 2L NC Leukocytosis - 2/2 steroids COSME - BiPAP qHS HTN - Continue lisinopril, carvedilol IDDMII - Continue Lantus 75U qAM, 25U qHS - Aggressive SSI, CC diet HFpEF s/p AICD - BNP <10 - Last echo 05/27/19 (poor visibility): EF 55-60% - Continue home meds - Consider Echo if respiratory symptoms not improved with above interventions - Strict I/O, daily weight, HH diet, fluid restriction HLD - Continue home Atorvastatin 80mg SHARRON, MDD - Continue home meds Tobacco abuse d/o - Nicotine patch - Counseled on cessation Code Status: Full DVT ppx: Lovenox Dispo: Discharge home today Addendum - Attending - Attending Attestation Date/Time: 09/09/19 [id number] I personally evaluated the patient and discussed the management with Dr. Ace. I agree with the History, Examination, Assessment and Plan documented above with any addition or exceptions noted below. The patient is clinically improved. Transitioning to po meds. Pt is stable for discharge.
[2019-09-09 07:54] VITALS: BP 116/77; TEMP 98.4
[2019-09-09] MEDS: busPIRone HCl 10 MG TAB PO SCH (08:39)
[2019-09-09] MEDS: metFORMIN 500 MG TAB PO SCH (08:39)
[2019-09-09] MEDS: Gabapentin 300 MG CAP PO SCH (08:40)
[2019-09-09] MEDS: Spironolactone 25 MG TAB PO SCH (08:40)
[2019-09-09] MEDS: Ferrous Gluconate 324 MG TAB PO SCH (08:40)
[2019-09-09] MEDS: predniSONE 20 MG TAB PO SCH (08:40)
[2019-09-09] MEDS: clonazePAM 0.5 MG TAB PO SCH (08:40)
[2019-09-09] MEDS: Aspirin 81 mg Enteric Coated Tablet PO SCH (08:41)
[2019-09-09] MEDS: Carvedilol 25 MG TAB PO SCH (08:41)
[2019-09-09] MEDS: Potassium Chloride 20 MEQ TAB PO SCH (08:41)
[2019-09-09] MEDS: Furosemide 20 MG TAB PO SCH (08:41)
[2019-09-09] MEDS: Lisinopril 20 MG TAB PO SCH (08:41)
[2019-09-09] MEDS: Enoxaparin Sodium 40 MG/0.4 ML SYRINGE SC SCH (08:42)
[2019-09-09] MEDS ORDERED: Clopidogrel Bisulfate 75 MG TAB ONE (08:47)
[2019-09-09] MEDS: Stress 600 With Zinc 1 TAB PO SCH (08:50)
[2019-09-09] MEDS: Insulin Glargine 75 UNITS in Pre-Filled Syringe 1 EACH SC SCH (08:50)
--- NOTE | 2019-09-09 22:06 | DIS ---
DATE OF ADMISSION: 09/06/2019 DATE OF DISCHARGE: 09/09/2019 RESIDENT: Vida Ace MD, PGY-1. ADMITTING ATTENDING: Pastor Cavazos MD DISCHARGE ATTENDING: Trini Arteaga MD CONSULTS: None. PROCEDURES PERFORMED: Chest x-ray 09/06/2019, congestive heart failure. Superimposed left lower lobe pneumonia and/or aspiration could not be excluded. Continued surveillance. PRIMARY DIAGNOSES: 1. Acute chronic obstructive pulmonary disease exacerbation, likely secondary to rhinovirus versus community-acquired pneumonia. 2. Community-acquired pneumonia. 3. Rhinovirus. SECONDARY DIAGNOSES: 1. Chronic respiratory failure. 2. Leukocytosis. 3. Obstructive sleep apnea. 4. Hypertension. 5. Type 2 diabetes. 6. Heart failure with preserved ejection fraction, status post AICD. 7. Hyperlipidemia. 8. Generalized anxiety disorder. 9. Major depressive disorder. 10. Tobacco use disorder. DISCHARGE MEDICATIONS: 1. Proventil HFA two inhalations q.4 hours p.r.n. 2. Amoxicillin 500 mg t.i.d. x2 days. 3. Aspirin 81 mg daily. 4. Atorvastatin 80 mg at bedtime. 5. Azithromycin 500 mg at bedtime x3 tablets. 6. Buspirone 10 mg t.i.d. 7. Carvedilol 25 mg b.i.d. 8. Clonazepam 0.5 mg b.i.d. 9. Folic acid 1 mg at bedtime. 10. Furosemide 20 mg b.i.d. 11. Gabapentin 900 mg t.i.d. 12. Lantus 75 units q.a.m. 13. Lantus 25 units at bedtime. 14. DuoNeb 3 mL nebulized q.4 hours p.r.n. 15. Iron 18 mg daily. 16. Lisinopril 20 mg daily. 17. Melatonin 3 mg at bedtime. 18. Metformin 1000 mg b.i.d. 19. Potassium chloride 20 mEq daily. 20. Prednisone 40 mg q.a.m. x2 days. 21. Sertraline 100 mg daily. 22. Spironolactone 25 mg daily. 23. Stress 600 with zinc one tablet p.o. daily. 24. Spiriva 18 mcg daily. HISTORY OF PRESENT ILLNESS/HOSPITAL COURSE: Mr. Villafuerte is a 64-year-old male, who presented to the emergency department with 3-4 day history of body aches, shortness of breath, sore throat, sinus drainage, rhinorrhea, cough and increased green sputum production. He was transferred from [place] to [facility] for COPD exacerbation. Chest x-ray showed consolidation of the left lower lobe versus pneumonia. Flu A/B was negative. Strep negative. He was given 1 g Rocephin and DuoNeb in the emergency department. He is chronically on 2 L nasal cannula. The patient was never hypoxic. He did not require more than 2 L, which is what he uses at home. He was continued on Rocephin and azithromycin, as well as prednisone and DuoNeb. Procalcitonin was 0.03. The patient was rhinovirus positive on RVP. However, he showed great improvement the next day with antibiotics and treatment. Therefore, antibiotics were continued for a total of 5-day course. He was discharged on amoxicillin and azithromycin, as well as prednisone. In regard to his obstructive sleep apnea, hypertension, heart failure with preserved ejection fraction, hyperlipidemia, generalized anxiety and major depression, he is continued on home medication and these were stable throughout the course of hospitalization. His insulin dependent type 2 diabetes was uncontrolled during hospitalization and he required a great amount of sliding scale insulin. Therefore, in addition to his home 75 units of Lantus, he was started on 25 units at bedtime, may consider splitting his morning Lantus dose due to the large amount of volume that could be affecting absorption. DISPOSITION: Stable. DISCHARGE INSTRUCTIONS: 1. Location: Home. 2. Diet: Heart healthy, carb consistent, fluid restriction at 1800 mL recommended. 3. Activity: As tolerated. 4. Followup: Follow up with PCP within 7 days. Job ID: [id number] [facility]
--- NOTE | 2019-09-11 04:09 | PQF ---
YAEL SANDERS KATHERINE MD [id number] CLINICAL DOCUMENTATION CLARIFICATION FORM: POST DISCHARGE Addendum to original discharge summary date: ____ Late entry note date: __ DATE: 09/11/19 ATTN: Trini Kay Please exercise your independent, professional judgment in responding to the clarification form. Clinical indicators are provided on the bottom of this form for your review Please check appropriate box(s) to clarify if the following diagnosis has been ruled in or ruled out: Sepsis [ ] Ruled in diagnosis [ ] Continue to treat [ ] Resolved [ ] Ruled out diagnosis [ ] Cannot rule out diagnosis [ ] Other diagnosis [ ] Unable to determine In addition, please specify: Present on Admission (POA): [ ] Yes [ ] No [ ] Unable to determine For continuity of documentation, please document condition throughout progress notes and discharge summary. Thank You. CLINICAL INDICATORS - SIGNS / SYMPTOMS / LABS ED Provider notes p1 09/06 Pt last admission was for COPD and Sepsis ED Provider notes p3 09/06 Vital Sign BP 116/59, Pulse 99, Resp 20 ED Provider notes p4 09/06 Diagnosis Primary : PNA, COPD, Sepsis Family Medicine H&P p4 09/06 WBC 11.2 RISK FACTORS Family Medicine H&P p1 09/06 64-year-old Family Medicine H&P p2 09/06 COPD Family Medicine H&P p9 09/06 Acute and Chronic Respiratory Failure Family Medicine H&P p6 09/06 Viral URI TREATMENTS To support diagnosis JAN 18 IV Azithromycin IV JAN 18 IV Rocephin IV Family Medicine H&P p7 08/12 Bipap (This form is maintained as a part of the permanent medical record) 2014 [employer]. All Rights Reserved [email or web address] [not provided] MTDD
== END 2019-09-09 13:20 | disposition home or self-care (01) | DRG 193 ==
LOC: ERS 20:52 → T4-B 21:09
PROVIDERS: ADMIT Emergency Medicine; ATTEND Emergency Medicine
PROC: 5A09357 Assistance with Respiratory Ventilation, Less than 24 Consecutive Hours, Continuous Positive Airway Pressure (ICD-10-PCS; principal; 2019-09-06)
DX: J18.9 Pneumonia, unspecified organism (principal); J96.20 Acute and chronic respiratory failure, unspecified whether with hypoxia or hypercapnia; J44.1 Chronic obstructive pulmonary disease with (acute) exacerbation; I50.32 Chronic diastolic (congestive) heart failure; Z68.41 Body mass index [BMI] 40.0-44.9, adult; J44.0 Chronic obstructive pulmonary disease with (acute) lower respiratory infection; J06.9 Acute upper respiratory infection, unspecified; B97.89 Other viral agents as the cause of diseases classified elsewhere; F43.10 Post-traumatic stress disorder, unspecified; G47.33 Obstructive sleep apnea (adult) (pediatric); F32.9 Major depressive disorder, single episode, unspecified; F17.200 Nicotine dependence, unspecified, uncomplicated; F41.1 Generalized anxiety disorder; E11.9 Type 2 diabetes mellitus without complications; E66.01 Morbid (severe) obesity due to excess calories; E78.5 Hyperlipidemia, unspecified; Z95.810 Presence of automatic (implantable) cardiac defibrillator; Z28.21 Immunization not carried out because of patient refusal; Z79.899 Other long term (current) drug therapy; Z79.82 Long term (current) use of aspirin; Z79.84 Long term (current) use of oral hypoglycemic drugs; Z79.4 Long term (current) use of insulin
CPT/HCPCS: 36415; 36416; 80048; 84145; 85025; 86140; 87070; 87205; 87633; 87798; 94640; 96365; J0456; J0696; J1650; J1815; J3010; J3490; J7050; J7512; J7620

== ENCOUNTER 2019-10-22 01:16 | Inpatient (IN) | payer MEDICARE, OTHER ==
[2019-10-22] MEDS ORDERED: Dextrose 50% Abboject 50 ML SYRINGE SLOW IVP PRN (02:29)
[2019-10-22] MEDS ORDERED: Dextrose 5% in Water 1,000 ML IV PRN (02:29)
--- NOTE | 2019-10-22 03:01 | PDOC.EVN ---
Event Note - Event Note Event Note: [id number]
[2019-10-22 03:31] LABS: Troponin I Less than 0.010 ng/mL (< 0.028)
--- NOTE | 2019-10-22 04:57 | HP ---
CHIEF COMPLAINT: Shortness of breath. HISTORY OF PRESENT ILLNESS: Mr. Villafuerte is a 64-year-old male with past medical history of COPD, diabetes type 2, hypertension, hyperlipidemia, congestive heart failure, obesity, among others; presents to emergency room with shortness of breath. The patient was in respiratory distress, was given 3 DuoNebs and IV Solu-Medrol and transferred to our emergency room for further management and for admission. Denies fever, chills, nausea, vomiting. He has been having cough productive of sputum. The patient is being admitted to the hospital for further management. PAST SURGICAL HISTORY: Pacemaker/defibrillator. FAMILY HISTORY: Reviewed and noncontributory. ALLERGIES: NO KNOWN ALLERGIES. HOME MEDICATIONS: Please see home medication reconciliation form for updated medications. REVIEW OF SYSTEMS: Review of 14 systems negative except what is mentioned in history of present illness. PHYSICAL EXAMINATION: GENERAL: The patient is awake, alert, in moderate distress. VITAL SIGNS: Blood pressure is 119/73, pulse is 102, respiratory rate is 22, pulse oximetry is 93% on 2 L/minute nasal cannula. HEAD: Normocephalic, atraumatic. NECK: Supple. No JVD. CHEST: Bilateral expiratory wheeze. HEART: S1, S2. Regular. ABDOMEN: Obese, soft. Bowel sounds present. NEUROLOGIC: Awake, alert, and oriented x3. PSYCHIATRIC: Normal mood. EXTREMITIES: No clubbing or cyanosis. Chest x-ray, no acute findings. LABORATORY DATA: WBC count is 8.5, hemoglobin 13.5, platelets 228. Sodium 138, potassium 4.1. Troponin 0.01, BUN 16, creatinine 0.9. ASSESSMENT AND PLAN: 1. Chronic obstructive pulmonary disease exacerbation. 2. Acute on chronic respiratory failure. 3. Congestive heart failure, chronic. 4. Obesity. 5. Diabetes mellitus type 2. 6. Hyperlipidemia. 7. Hypertension. 8. Sleep apnea. PLAN: 1. Admit. 2. Oxygen to keep saturation more than 92%. 3. Continue with bronchodilators, DuoNebs as scheduled and as needed. 4. IV Solu-Medrol. 5. IV antibiotics. 6. Reconcile home medications. 7. DVT prophylaxis as appropriate/early ambulation. 8. Expected length of stay, 2 midnights or more. Job ID: [id number]
[2019-10-22 07:31] LABS: Troponin I Less than 0.010 ng/mL (< 0.028)
[2019-10-22] MEDS ORDERED: cefTRIAXone\\ROCEPHIN 1 GM VIAL ONE (08:02)
[2019-10-22] MEDS ORDERED: methylPREDNISolone Sod Succ 40 MG VIAL ONE (08:08)
[2019-10-22] MEDS ORDERED: Insulin Regular 300 UNITS/3 ML VIAL ONE ×3 (09:07→09:11)
--- NOTE | 2019-10-22 12:37 | PDOC.HOSPP ---
- Subjective Encounter Date: 10/22/19 Encounter Time: 11:10 Subjective: sob is better, no chest pain or palp Hospitalist ROS - Medication Medications: Active Medications Generic Name Dose Route Start Last Admin Trade Name Cresencio PRN Reason Stop Dose Admin Albuterol/Ipratropium 3 ml 10/22/19 07:00 10/22/19 07:30 Duoneb NEB 3 ml [id number] ILANA Administration - Exam General Appearance: awake alert Eye: PERRL, anicteric sclera ENT: no oropharyngeal lesions, moist mucosa Neck: supple, no JVD Heart: RRR, no murmur Respiratory: no rales, rhonchi, wheezes Gastrointestinal: soft, non-tender, non-distended, normal bowel sounds Extremities: no cyanosis, 2+ LE edema Neurological: cranial nerve grossly intact, no focal deficits Psychiatric: normal affect, A&O x 3 Hosp A/P (1) Acute and chronic respiratory failure Code(s): J96.20 - ACUTE AND CHR RESP FAILURE, UNSP W HYPOXIA OR HYPERCAPNIA Status: Acute Qualifiers: Respiratory failure complication: hypoxia and hypercapnia Qualified Code(s) : J96.21 - Acute and chronic respiratory failure with hypoxia; J96.22 - Acute and chronic respiratory failure with hypercapnia (2) COPD exacerbation Code(s): J44.1 - CHRONIC OBSTRUCTIVE PULMONARY DISEASE W (ACUTE) EXACERBATION Status: Acute (3) PTSD (post-traumatic stress disorder) Code(s): F43.10 - POST-TRAUMATIC STRESS DISORDER, UNSPECIFIED Status: Chronic (4) DM type 2 (diabetes mellitus, type 2) Status: Chronic Qualifiers: Diabetes mellitus retirement insulin use: with terminal supervisor use (5) HLD (hyperlipidemia) Code(s): E78.5 - HYPERLIPIDEMIA, UNSPECIFIED Status: Chronic Qualifiers: Hyperlipidemia type: unspecified Qualified Code(s): E78.5 - Hyperlipidemia , unspecified (6) HTN (hypertension) Code(s): I10 - ESSENTIAL (PRIMARY) HYPERTENSION Status: Chronic Qualifiers: Hypertension type: essential hypertension Qualified Code(s): I10 - Essential (primary) hypertension (7) Morbid obesity Code(s): E66.01 - MORBID (SEVERE) OBESITY DUE TO EXCESS CALORIES Status: Chronic (8) COSME (obstructive sleep apnea) Code(s): G47.33 - OBSTRUCTIVE SLEEP APNEA (ADULT) (PEDIATRIC) Status: Chronic - Plan has ongoing tobacco use, says has come down to 1 pack/day now is on ceftriaxone and zithromax, nebs, steroids last echo 05/2019, ef was 55% hemostable to ambulate in hallway as tolerated he needs to shower as well
[2019-10-22] MEDS: cefTRIAXone\\ROCEPHIN 1 GM in Sodium Chloride 0.9% 100 ML IVPB SCH (13:04)
[2019-10-22] MEDS: methylPREDNISolone Sod Succ 40 MG VIAL IVP SCH ×3 (13:04→17:14)
[2019-10-22 14:05] VITALS: BMI 43.9
[2019-10-22] MEDS ORDERED: Ipratropium Bromide 2.5 ml Neb NEB PRN (14:35)
[2019-10-22] MEDS ORDERED: Spironolactone 25 MG TAB PO SCH (14:45)
[2019-10-22] MEDS ORDERED: Carvedilol 25 MG TAB PO SCH (14:45)
[2019-10-22] MEDS ORDERED: Lisinopril 20 MG TAB PO SCH (14:45)
[2019-10-22] MEDS ORDERED: Aspirin 81 mg Enteric Coated Tablet PO SCH (14:45)
[2019-10-22] MEDS ORDERED: Insulin Glargine 75 UNITS in Pre-Filled Syringe 1 EACH SC SCH (14:45)
[2019-10-22] MEDS: clonazePAM 0.5 MG TAB PO SCH ×2 (14:53→20:37)
[2019-10-22] MEDS: Gabapentin 300 MG CAP PO SCH ×2 (14:58→20:38)
[2019-10-22] MEDS: busPIRone HCl 10 MG TAB PO SCH ×2 (14:58→20:37)
[2019-10-22] MEDS ORDERED: HumaLOG 300 UNITS/3 ML VIAL SC SCH (15:00)
[2019-10-22] MEDS ORDERED: clonazePAM 0.5 MG TAB PO SCH (15:00)
[2019-10-22] MEDS: HumaLOG 300 UNITS/3 ML VIAL SC SCH (17:14)
[2019-10-22] MEDS ORDERED: Furosemide 40 MG/4 ML VIAL SLOW IVP SCH (17:45)
[2019-10-22] MEDS: Atorvastatin Calcium 40 MG TAB PO SCH (20:37)
[2019-10-22] MEDS: Folic Acid 1 MG TAB PO SCH (20:37)
[2019-10-22] MEDS: Carvedilol 25 MG TAB PO SCH (20:37)
[2019-10-22] MEDS ORDERED: Furosemide 20 MG TAB PO SCH (21:00)
[2019-10-22] MEDS: HumaLOG 300 UNITS/3 ML VIAL SC PRN (21:46)
--- NOTE | 2019-10-22 23:27 | CON ---
DATE OF CONSULTATION: 10/22/2019 SERVICE: Pulmonary Medicine. REASON FOR CONSULT: COPD exacerbation. HISTORY OF PRESENT ILLNESS: The patient is a 64-year-old white male with past medical history significant for tobacco abuse and chronic respiratory failure secondary to COPD. He has a home ventilator, and is also on oxygen. He was in his usual state of health until 2 to 3 weeks ago. At that point, he started having intermittent lower extremity swelling and also increasing dyspnea on exertion. He does not experience any paroxysmal nocturnal dyspnea, orthopnea, because he is on a home ventilator at night. Otherwise, he presented to the emergency department because of his difficulty breathing. He was not having any fevers or chills. He has not had any sick contacts recently and has not experienced any upper respiratory tract infection or viral prodrome. He was initiated on high doses of prednisone. So far, he has not had a significant improvement in symptoms. PAST MEDICAL HISTORY: 1. Chronic hypoxic and hypercapnic respiratory failure. 2. COPD. 3. Type 2 diabetes mellitus. 4. Hypertension. 5. Dyslipidemia. 6. Chronic systolic and diastolic heart failure. 7. Morbid obesity. 8. Tobacco abuse. PAST SURGICAL HISTORY: Pacemaker/defibrillator placement. FAMILY HISTORY: Noncontributory. SOCIAL HISTORY: He continues to smoke. He smokes about a half pack on a daily basis, but has a greater than 50 pack-year history of smoking. He has no exposure to chemicals, dust, asbestos, or tuberculosis. He denies any street drugs, or profound alcohol use. ALLERGIES: NO KNOWN DRUG ALLERGIES. MEDICATIONS: List of his inpatient medications was reviewed. Multiple updates were made at this time. REVIEW OF SYSTEMS: General, head, ears, eyes, nose, throat, cardiovascular, respiratory, GI, , musculoskeletal, neurologic, and skin is negative except as mentioned is the HPI. PHYSICAL EXAMINATION: VITAL SIGNS: Afebrile, pulse 95, blood pressure 146/74, respirations 18, saturation 93% on 2 L nasal cannula. GENERAL: The patient is awake and alert, in no apparent distress. LUNGS: Decent air entry. There is a prolonged expiratory phase. Crackles and wheezing are both appreciated. Minimal rhonchi are present, but clear with cough. HEART: Normal rate regular. ABDOMEN: Soft, nontender, nondistended. Bowel sounds are positive. MUSCULOSKELETAL: No cyanosis or clubbing. There is 1 to 2+ pitting in the bilateral lower extremities. NEUROLOGIC: Grossly nonfocal. LABORATORY DATA: Troponin is negative x2. CBC is essentially unremarkable. Basic metabolic profile and liver function studies are all unremarkable. IMAGING: Chest x-ray demonstrates hyperexpanded lungs. No obvious consolidating changes are present. Compared to prior, there is no interval change. The left lower lobe change may be more indicative of pericardial fat pad and/or soft tissue attenuation and a true infiltrate. ASSESSMENT: 1. Vbgle-hu-[id number] hypoxic and hypercapnic respiratory failure. 2. Chronic obstructive pulmonary disease with acute exacerbation, likely volume mediated. 3. Baygt-gj-[id number] systolic and diastolic heart failure. DISCUSSION AND PLAN: I believe that most of the patient's respiratory illness is associated with the volume, if it is the timeline. As such, I think he would be well served by aggressively diuresing him through time. We will give him an IV dose of Lasix today, and tomorrow morning. After that, it will be on p.r.n. basis. I will rapidly deescalate his steroids and probably limit him to a 2-3 day course, particularly if he returns to baseline quickly. Antibiotic should be limited to a total duration of 5 days, but if his breathing is doing better by tomorrow, he should be converted over to a p.o. course and considered for discharge from the hospital. Pulmonary will continue to follow while the patient remains inhouse. I have counseled him to avoid salt. Initially, he told me he did not use any salt , but then he confessed that he uses salt on almost every meal, but did not think that it was going to be a problem, because it was Himal[place]. I counseled him and so hopefully he now understands that Himalayan salt is salt. 70 minutes have been devoted to this patient in various activities. I personally reviewed all imaging studies and laboratory data noted within this document. For fifty percent of this time, I was interacting with the patient at the bedside or coordinating care with the care team. For the remainder of the time I was immediately available to the patient in the hospital unit. [facility] ID: [id number] [facility]
[2019-10-23] MEDS: Azithromycin 500 MG in Sodium Chloride 0.9% 250 ML 250 ML IVPB SCH ×2 (01:07→23:30)
[2019-10-23] MEDS: cefTRIAXone\\ROCEPHIN 1 GM in Sodium Chloride 0.9% 100 ML IVPB SCH ×2 (01:08→23:33)
[2019-10-23] MEDS ORDERED: Furosemide 20 MG TAB PO SCH (06:00)
[2019-10-23] MEDS: Furosemide 40 MG/4 ML VIAL SLOW IVP SCH (06:04)
[2019-10-23] MEDS: HumaLOG 300 UNITS/3 ML VIAL SC PRN ×2 (06:09→20:15)
[2019-10-23 07:38] LABS: #Lymphocytes 1.7 thou/uL (1.20-3.40); #Monocytes 0.6 thou/uL (0.11-0.59); #Neutrophils 4.5 thou/uL (1.40-6.50); %Basophils 0.4 % (0.0-1.0); %Eosinophils 0.4 % (0.0-10.0); %Monocytes 9.3 % (0.0-10.0); %Neutrophils 64.9 % (42.0-75.0); Hemoglobin 14.7 g/dL (14.0-18.0); Mean Corpuscular HGB CONC 33.1 g/dL (32.0-36.0); Mean Corpuscular Volume 93.7 fL (78.0-98.0); Mean Platelet Volume 8.4 fL (7.4-10.4); Platelet Count 229 thou/uL (130-400); RBC Distribution Width 12.2 % (11.5-14.5); Red Blood Cell (RBC) Count 4.72 mill/uL (4.70-6.10); White Blood Cell (WBC) Count 6.9 thou/uL (4.8-10.8)
[2019-10-23 08:02] LABS: ALT (SGPT) 26 U/L (8-55); AST (SGOT) 17 U/L (5-34); Albumin 4.3 g/dL (3.4-4.8); Alkaline Phosphatase 108 U/L (40-110); Anion Gap 12 mmol/L (10-20); BUN (Urea Nitrogen) 18 mg/dL (8.4-25.7); Bilirubin, Total 0.3 mg/dL (0.2-1.2); Calc. Creatinine Clearance 152 mL/min (70-130); Carbon Dioxide 36 mmol/L (23-31); Chloride 93 mmol/L (98-107); Estimated GFR-MDRD 79; Globulin 3.4 g/dL (2.4-3.5); Glucose 342 mg/dL (80-115); Potassium 3.8 mmol/L (3.5-5.1); Protein, Total 7.7 g/dL (5.8-8.1); Sodium 137 mmol/L (136-145)
[2019-10-23] MEDS: Insulin Glargine 75 UNITS in Pre-Filled Syringe 1 EACH SC SCH (08:41)
[2019-10-23] MEDS: busPIRone HCl 10 MG TAB PO SCH ×3 (08:42→20:14)
[2019-10-23] MEDS: Gabapentin 300 MG CAP PO SCH ×3 (08:42→20:15)
[2019-10-23] MEDS: Spironolactone 25 MG TAB PO SCH (08:42)
[2019-10-23] MEDS: Lisinopril 20 MG TAB PO SCH (08:42)
[2019-10-23] MEDS: Potassium Chloride 20 MEQ TAB PO SCH (08:42)
[2019-10-23] MEDS: clonazePAM 0.5 MG TAB PO SCH ×2 (08:43→20:14)
[2019-10-23] MEDS: Carvedilol 25 MG TAB PO SCH ×2 (08:43→20:14)
[2019-10-23] MEDS: predniSONE 20 MG TAB PO SCH (08:43)
[2019-10-23] MEDS: metFORMIN 500 MG TAB PO SCH ×2 (08:43→17:11)
[2019-10-23] MEDS: Aspirin 81 mg Enteric Coated Tablet PO SCH (08:43)
[2019-10-23] MEDS: HumaLOG 300 UNITS/3 ML VIAL SC SCH ×3 (08:43→17:12)
--- NOTE | 2019-10-23 12:46 | PDOC.HOSPP ---
- Subjective Encounter Date: 10/23/19 Encounter Time: 07:00 Subjective: sob is better is amb in room he got lasix yesterday and this am - Objective Vital Signs & Weight: Vital Signs (12 hours) Temp Pulse Resp BP BP Pulse Ox 10/23/19 12:30 101 H 20 90 L 10/23/19 08:42 105/71 10/23/19 08:16 98.0 F 100 20 105/71 90 L 10/23/19 08:00 90 L 10/23/19 06:53 93 L 10/23/19 06:52 81 20 93 L 10/23/19 03:19 93 L Weight Weight 297 lb 6.4 oz I&O: 10/22/19 10/23/19 10/24/19 06:59 06:59 06:59 Intake Total 480 240 Output Total 1575 Balance -1095 240 Result Diagrams: 10/23/19 07:16 10/23/19 07:16 Additional Labs: Accuchecks 10/23/19 10/22/19 10/22/19 06:11 21:42 15:17 POC Glucose 305 H 391 H 343 H 10/22/19 10/22/19 12:16 09:01 POC Glucose 374 H 395 H Hospitalist ROS - Medication Medications: Active Medications Generic Name Dose Route Start Last Admin Trade Name Freq PRN Reason Stop Dose Admin Albuterol/Ipratropium 3 ml 10/22/19 07:00 10/23/19 12:30 Duoneb NEB 3 ml [id number] ILANA Administration Albuterol/Ipratropium 3 ml 10/22/19 02:29 10/23/19 03:19 Duoneb NEB 3 ml [id number] PRN Administration SOB &/or Wheezing Aspirin 81 mg 10/23/19 09:00 10/23/19 08:43 Ecotrin PO 81 mg DAILY ILANA Administration Atorvastatin Calcium 80 mg 10/22/19 21:00 10/22/19 20:37 Lipitor PO 80 mg HS ILANA Administration Buspirone HCl 10 mg 10/22/19 15:00 10/23/19 08:42 Buspar PO 10 mg TID ILAAN Administration Carvedilol 25 mg 10/22/19 21:00 10/23/19 08:43 Coreg PO 25 mg BID IALNA Administration Clonazepam 0.5 mg 10/22/19 21:00 10/23/19 08:43 Klonopin PO 0.5 mg BID ILANA Administration Folic Acid 1 mg 10/22/19 21:00 10/22/19 20:37 Folvite PO 1 mg HS ILANA Administration Furosemide 40 mg 10/23/19 06:00 10/23/19 06:04 Lasix SLOW IVP 40 mg 0600 ILANA Administration Gabapentin 900 mg 10/22/19 15:00 10/23/19 08:42 Neurontin PO 900 mg TID ILANA Administration Azithromycin 500 mg/ Sodium 250 mls @ 250 mls/hr 10/22/19 23:59 10/23/19 01: 07 Chloride IVPB 250 mls Q24HR ILANA Administration Ceftriaxone Sodium 1 gm/ 100 mls @ 200 mls/hr 10/22/19 03:00 10/23/19 01:08 Sodium Chloride IVPB 100 mls Q24HR ILANA Administration Insulin Glargine 75 units/ 0.75 mls @ 0 mls/hr 10/23/19 09:00 10/23/19 08:41 Miscellaneous Medication SC 0.75 mls QAM ILANA Administration As Directed Insulin Human Lispro 0 units 10/22/19 02:29 10/23/19 06:09 Humalog SC 5 unit .MILD SLIDING SCALE PRN Administration Mild Correctional Scale Insulin Human Lispro 35 units 10/22/19 17:00 10/23/19 08:43 Humalog SC 35 unit TID-WM ILANA Administration Lisinopril 20 mg 10/23/19 09:00 10/23/19 08:42 Zestril PO 20 mg DAILY ILANA Administration Metformin HCl 1,000 mg 10/23/19 08:00 10/23/19 08:43 Glucophage PO 1,000 mg BID-WM ILANA Administration Potassium Chloride 20 meq 10/23/19 09:00 10/23/19 08:42 K-Dur PO 20 meq DAILY ILANA Administration Prednisone 40 mg 10/23/19 08:00 10/23/19 08:43 Prednisone PO 10/24/19 08:01 40 mg QAM-WM ILANA Administration Sertraline HCl 100 mg 10/23/19 09:00 10/23/19 08:43 Zoloft PO 100 mg DAILY ILANA Administration Spironolactone 25 mg 10/23/19 09:00 10/23/19 08:42 Aldactone PO 25 mg DAILY ILANA Administration - Exam General Appearance: awake alert Eye: PERRL, anicteric sclera ENT: no oropharyngeal lesions, moist mucosa Neck: supple, no JVD Heart: RRR, no murmur, no gallops Respiratory: no wheezes, no rales, rhonchi Gastrointestinal: soft, non-tender, non-distended, normal bowel sounds Extremities: no cyanosis, 1+ LE edema Neurological: cranial nerve grossly intact, no focal deficits Psychiatric: normal affect, A&O x 3 Hosp A/P (1) Acute and chronic respiratory failure Code(s): J96.20 - ACUTE AND CHR RESP FAILURE, UNSP W HYPOXIA OR HYPERCAPNIA Status: Acute Qualifiers: Respiratory failure complication: hypoxia and hypercapnia Qualified Code(s) : J96.21 - Acute and chronic respiratory failure with hypoxia; J96.22 - Acute and chronic respiratory failure with hypercapnia (2) COPD exacerbation Code(s): J44.1 - CHRONIC OBSTRUCTIVE PULMONARY DISEASE W (ACUTE) EXACERBATION Status: Acute (3) PTSD (post-traumatic stress disorder) Code(s): F43.10 - POST-TRAUMATIC STRESS DISORDER, UNSPECIFIED Status: Chronic (4) DM type 2 (diabetes mellitus, type 2) Status: Chronic Qualifiers: Diabetes mellitus fdc insulin use: with buttermaker continuous churn use (5) HLD (hyperlipidemia) Code(s): E78.5 - HYPERLIPIDEMIA, UNSPECIFIED Status: Chronic Qualifiers: Hyperlipidemia type: unspecified Qualified Code(s): E78.5 - Hyperlipidemia , unspecified (6) HTN (hypertension) Code(s): I10 - ESSENTIAL (PRIMARY) HYPERTENSION Status: Chronic Qualifiers: Hypertension type: essential hypertension Qualified Code(s): I10 - Essential (primary) hypertension (7) Morbid obesity Code(s): E66.01 - MORBID (SEVERE) OBESITY DUE TO EXCESS CALORIES Status: Chronic (8) COSME (obstructive sleep apnea) Code(s): G47.33 - OBSTRUCTIVE SLEEP APNEA (ADULT) (PEDIATRIC) Status: Chronic - Plan has ongoing tobacco use, says has come down to 1 pack/day now is on ceftriaxone and zithromax, may switch to omnicef or doxy if ok with , [facility], steroids last echo 05/2019, ef was 55% hemostable to ambulate in hallway as tolerated DC plan in am if stable dm is uncontrolled due to prednisone/solumedrol, rapid taper by am. On metformin, lantus, rapid acting fixed dose before meals
--- NOTE | 2019-10-23 15:00 | PRG ---
DATE OF SERVICE: 10/23/2019 SERVICE: Pulmonary Medicine. INTERVAL HISTORY: The patient is doing profoundly better from a respiratory standpoint. That being said, he does not feel safe to go home at this point. He denies any fevers or chills. He is not coughing any. Otherwise, he is moving better air, he has no specific complaints. PHYSICAL EXAMINATION: VITAL SIGNS: Afebrile, pulse 100, blood pressure 105/71, respirations 20, and saturation 90% on 2.5 L nasal cannula. GENERAL: The patient is awake and alert, in no apparent distress. LUNGS: Much improved air entry. That being said, I can hear the crackles, which are much more pronounced today at the bibasilar region. HEART: Normal rate and regular. ABDOMEN: Soft, nontender, and nondistended. Bowel sounds are positive. MUSCULOSKELETAL: No cyanosis or clubbing. There is trace 1+ pitting in the bilateral lower extremities. NEUROLOGIC: Grossly nonfocal. LABORATORY DATA: BNP 10. Liver function studies are unremarkable. Basic metabolic profile is also unremarkable. His bicarb is 36. Creatinine 0.96, which is at baseline. Potassium 3.8. ASSESSMENT: 1. Acute on chronic hypoxic and hypercapnic respiratory failure. 2. Chronic obstructive pulmonary disease with acute exacerbation. 3. Acute on chronic systolic and diastolic heart failure. DISCUSSION AND PLAN: I do not care what the BNP says. He is volume up. We are going to continue to diurese him through time. I will replace his potassium today. Once the patient feels safe for discharge from the hospital, we can do that, but until that occurs, his bounce-back risk will be extraordinarily high. I would simply hold onto him until he felt comfortable leaving the hospital. Job ID: [id number]
[2019-10-23] MEDS: Atorvastatin Calcium 40 MG TAB PO SCH (20:13)
[2019-10-23] MEDS: Folic Acid 1 MG TAB PO SCH (20:14)
[2019-10-24] MEDS: Furosemide 40 MG/4 ML VIAL SLOW IVP SCH (06:02)
[2019-10-24] MEDS: Spironolactone 25 MG TAB PO SCH (08:09)
[2019-10-24] MEDS: Gabapentin 300 MG CAP PO SCH ×3 (08:09→20:15)
[2019-10-24] MEDS: clonazePAM 0.5 MG TAB PO SCH ×2 (08:09→20:16)
[2019-10-24] MEDS: busPIRone HCl 10 MG TAB PO SCH ×3 (08:09→20:15)
[2019-10-24] MEDS: Aspirin 81 mg Enteric Coated Tablet PO SCH (08:09)
[2019-10-24] MEDS: Lisinopril 20 MG TAB PO SCH (08:09)
[2019-10-24] MEDS: predniSONE 20 MG TAB PO SCH (08:09)
[2019-10-24] MEDS: Carvedilol 25 MG TAB PO SCH ×2 (08:10→20:16)
[2019-10-24] MEDS: Insulin Glargine 75 UNITS in Pre-Filled Syringe 1 EACH SC SCH (08:10)
[2019-10-24] MEDS: Potassium Chloride 20 MEQ TAB PO SCH (08:10)
[2019-10-24] MEDS: metFORMIN 500 MG TAB PO SCH ×2 (08:10→17:17)
[2019-10-24] MEDS: HumaLOG 300 UNITS/3 ML VIAL SC SCH ×3 (08:11→17:16)
[2019-10-24 08:39] LABS: Anion Gap 13 mmol/L (10-20); BUN (Urea Nitrogen) 21 mg/dL (8.4-25.7); Calc. Creatinine Clearance 174 mL/min (70-130); Calcium 8.4 mg/dL (7.8-10.44); Carbon Dioxide 34 mmol/L (23-31); Chloride 93 mmol/L (98-107); Estimated GFR-MDRD Greater than 90; Glucose 236 mg/dL (80-115); Magnesium 1.9 mg/dL (1.6-2.6); Potassium 3.8 mmol/L (3.5-5.1); Sodium 136 mmol/L (136-145)
[2019-10-24] MEDS: HumaLOG 300 UNITS/3 ML VIAL SC PRN (12:26)
[2019-10-24] MEDS: Atorvastatin Calcium 40 MG TAB PO SCH (20:15)
[2019-10-24] MEDS: Folic Acid 1 MG TAB PO SCH (20:16)
--- NOTE | 2019-10-24 21:31 | PDOC.HOSPP ---
- Subjective Encounter Date: 10/24/19 Encounter Time: 09:29 Subjective: 64 y/o male with morbid obesity, COSME on CPAP, COPD, DM, CHF and others admitted with worsening SOB and cough associated with respiratory distress. Started on antibiotics, steroid, bronchodilators and lasix with improvement. Still concern about going home. Overal feeling better. No nausea, vomiting or fever - Objective Vital Signs & Weight: Vital Signs (12 hours) Temp Pulse Resp BP Pulse Ox 10/24/19 20:18 98.0 F 77 20 121/76 92 L 10/24/19 19:28 95 10/24/19 12:34 84 20 94 L Weight Weight 297 lb 6.4 oz I&O: 10/23/19 10/24/19 10/25/19 06:59 06:59 06:59 Intake Total 669 822 1879 Output Total 1575 Balance -0173 948 7690 Result Diagrams: 10/23/19 07:16 10/24/19 08:07 Additional Labs: Accuchecks 10/24/19 10/24/19 10/24/19 20:34 16:53 11:52 POC Glucose 201 H 117 H 176 H 10/24/19 05:04 POC Glucose 146 H Hospitalist ROS - Medication Medications: Active Medications Generic Name Dose Route Start Last Admin Trade Name Freq PRN Reason Stop Dose Admin Albuterol/Ipratropium 3 ml 10/22/19 07:00 10/24/19 19:28 Duoneb NEB 3 ml [id number] ILANA Administration Albuterol/Ipratropium 3 ml 10/22/19 02:29 10/23/19 03:19 Duoneb NEB 3 ml [id number] PRN Administration SOB &/or Wheezing Aspirin 81 mg 10/23/19 09:00 10/24/19 08:09 Ecotrin PO 81 mg DAILY ILANA Administration Atorvastatin Calcium 80 mg 10/22/19 21:00 10/24/19 20:15 Lipitor PO 80 mg HS ILANA Administration Buspirone HCl 10 mg 10/22/19 15:00 10/24/19 20:15 Buspar PO 10 mg TID ILANA Administration Carvedilol 25 mg 10/22/19 21:00 10/24/19 20:16 Coreg PO 25 mg BID ILANA Administration Clonazepam 0.5 mg 10/22/19 21:00 10/24/19 20:16 Klonopin PO 0.5 mg BID ILANA Administration Folic Acid 1 mg 10/22/19 21:00 10/24/19 20:16 Folvite PO 1 mg HS ILANA Administration Furosemide 40 mg 10/23/19 06:00 10/24/19 06:02 Lasix SLOW IVP 40 mg 0600 ILANA Administration Gabapentin 900 mg 10/22/19 15:00 10/24/19 20:15 Neurontin PO 900 mg TID ILANA Administration Azithromycin 500 mg/ Sodium 250 mls @ 250 mls/hr 10/22/19 23:59 10/23/19 23: 30 Chloride IVPB 250 mls Q24HR ILANA Administration Ceftriaxone Sodium 1 gm/ 100 mls @ 200 mls/hr 10/22/19 03:00 10/23/19 23:33 Sodium Chloride IVPB 100 mls Q24HR ILANA Administration Insulin Glargine 75 units/ 0.75 mls @ 0 mls/hr 10/23/19 09:00 10/24/19 08:10 Miscellaneous Medication SC 0.75 mls QAM ILANA Administration As Directed Insulin Human Lispro 0 units 10/22/19 02:29 10/24/19 12:26 Humalog SC 2 unit .MILD SLIDING SCALE PRN Administration Mild Correctional Scale Insulin Human Lispro 35 units 10/22/19 17:00 10/24/19 17:16 Humalog SC 35 unit TID-WM ILANA Administration Lisinopril 20 mg 10/23/19 09:00 10/24/19 08:09 Zestril PO 20 mg DAILY ILANA Administration Metformin HCl 1,000 mg 10/23/19 08:00 10/24/19 17:17 Glucophage PO Not Given BID-WM ILANA Potassium Chloride 20 meq 10/23/19 09:00 10/24/19 08:10 K-Dur PO 20 meq DAILY ILANA Administration Sertraline HCl 100 mg 10/23/19 09:00 10/24/19 08:10 Zoloft PO 100 mg DAILY ILANA Administration Spironolactone 25 mg 10/23/19 09:00 10/24/19 08:09 Aldactone PO 25 mg DAILY ILANA Administration - Exam General Appearance: awake alert Eye: anicteric sclera ENT: normocephalic atraumatic Neck: supple, symmetric, no JVD Heart: RRR Respiratory - other findings: fair air entry with no obvious crackles or rhonchi Gastrointestinal: soft, normal bowel sounds Gastrointestinal - other findings: morbidly obese Extremities: no cyanosis, no edema Neurological: cranial nerve grossly intact, no focal deficits Psychiatric: A&O x 3 Hosp A/P (1) Acute respiratory failure with hypoxia and hypercapnia Code(s): J96.01 - ACUTE RESPIRATORY FAILURE WITH HYPOXIA; J96.02 - ACUTE RESPIRATORY FAILURE WITH HYPERCAPNIA Status: Resolved (2) Acute on chronic diastolic (congestive) heart failure Code(s): I50.33 - ACUTE ON CHRONIC DIASTOLIC (CONGESTIVE) HEART FAILURE Status : Acute (3) COPD exacerbation Code(s): J44.1 - CHRONIC OBSTRUCTIVE PULMONARY DISEASE W (ACUTE) EXACERBATION Status: Acute (4) Insulin dependent diabetes mellitus Code(s): E11.9 - TYPE 2 DIABETES MELLITUS WITHOUT COMPLICATIONS; Z79.4 - BUSINESS RISK ANALYST (CURRENT) USE OF INSULIN Status: Acute (5) Physical deconditioning Code(s): R53.81 - OTHER MALAISE Status: Acute (6) HLD (hyperlipidemia) Code(s): E78.5 - HYPERLIPIDEMIA, UNSPECIFIED Status: Chronic Qualifiers: Hyperlipidemia type: unspecified Qualified Code(s): E78.5 - Hyperlipidemia , unspecified (7) HTN (hypertension) Code(s): I10 - ESSENTIAL (PRIMARY) HYPERTENSION Status: Chronic Qualifiers: Hypertension type: essential hypertension Qualified Code(s): I10 - Essential (primary) hypertension (8) Morbid obesity Code(s): E66.01 - MORBID (SEVERE) OBESITY DUE TO EXCESS CALORIES Status: Chronic (9) COSME (obstructive sleep apnea) Code(s): G47.33 - OBSTRUCTIVE SLEEP APNEA (ADULT) (PEDIATRIC) Status: Chronic - Plan Continue bronchodilators, steroid and NIPPV. Continue diuretic and follow renal function. Replete electrolytes as needed Adjust insulin therapy to get adequate BP control.
[2019-10-24] MEDS: Azithromycin 500 MG in Sodium Chloride 0.9% 250 ML 250 ML IVPB SCH (23:40)
[2019-10-25] MEDS: cefTRIAXone\\ROCEPHIN 1 GM in Sodium Chloride 0.9% 100 ML IVPB SCH (02:18)
[2019-10-25] MEDS: Furosemide 40 MG/4 ML VIAL SLOW IVP SCH (05:26)
[2019-10-25 07:41] LABS: Albumin 3.9 g/dL (3.4-4.8); Anion Gap 16 mmol/L (10-20); BUN (Urea Nitrogen) 18 mg/dL (8.4-25.7); BUN/Creatinine Ratio 22.22; Calc. Creatinine Clearance 180 mL/min (70-130); Calcium 8.6 mg/dL (7.8-10.44); Carbon Dioxide 33 mmol/L (23-31); Chloride 94 mmol/L (98-107); Estimated GFR-MDRD Greater than 90; Glucose 181 mg/dL (80-115); Magnesium 1.9 mg/dL (1.6-2.6); Phosphorus 4.2 mg/dL (2.3-4.7); Potassium 4.1 mmol/L (3.5-5.1); Sodium 139 mmol/L (136-145)
[2019-10-25] MEDS: Insulin Glargine 75 UNITS in Pre-Filled Syringe 1 EACH SC SCH (08:00)
[2019-10-25] MEDS: Lisinopril 20 MG TAB PO SCH (08:01)
[2019-10-25] MEDS: Gabapentin 300 MG CAP PO SCH ×3 (08:01→20:01)
[2019-10-25] MEDS: Aspirin 81 mg Enteric Coated Tablet PO SCH (08:01)
[2019-10-25] MEDS: busPIRone HCl 10 MG TAB PO SCH ×3 (08:01→20:02)
[2019-10-25] MEDS: clonazePAM 0.5 MG TAB PO SCH ×2 (08:01→20:01)
[2019-10-25] MEDS: metFORMIN 500 MG TAB PO SCH ×2 (08:01→17:26)
[2019-10-25] MEDS: Carvedilol 25 MG TAB PO SCH ×2 (08:01→20:02)
[2019-10-25] MEDS: Spironolactone 25 MG TAB PO SCH (08:01)
[2019-10-25] MEDS: HumaLOG 300 UNITS/3 ML VIAL SC SCH ×3 (08:02→17:30)
[2019-10-25] MEDS: Potassium Chloride 20 MEQ TAB PO SCH (09:11)
[2019-10-25] MEDS: HumaLOG 300 UNITS/3 ML VIAL SC PRN (12:20)
--- NOTE | 2019-10-25 13:55 | PDOC.HOSPP ---
- Subjective Encounter Date: 10/25/19 Encounter Time: 09:13 Subjective: 64 y/o male with morbid obesity, COSME on CPAP, COPD, DM, CHF and others admitted with worsening SOB and cough associated with respiratory distress. Started on antibiotics, steroid, bronchodilators and lasix with improvement. Overal feeling better. No nausea, vomiting or fever. Patient however doesnt feel safe and comfortable going home today. - Objective Vital Signs & Weight: Vital Signs (12 hours) Temp Pulse Resp BP BP Pulse Ox 10/25/19 13:50 84 16 10/25/19 08:15 91 L 10/25/19 08:08 85 20 10/25/19 08:01 105/71 10/25/19 08:00 91 L 10/25/19 07:40 97.8 F 85 20 106/72 91 L Weight Weight 297 lb 6.4 oz I&O: 10/24/19 10/25/19 10/26/19 06:59 06:59 06:59 Intake Total 720 1960 320 Output Total 1800 Balance 720 160 320 Result Diagrams: 10/23/19 07:16 10/25/19 07:04 Additional Labs: Accuchecks 10/25/19 10/25/19 10/24/19 11:59 04:39 20:34 POC Glucose 180 H 79 201 H 10/24/19 16:53 POC Glucose 117 H Hospitalist ROS - Medication Medications: Active Medications Generic Name Dose Route Start Last Admin Trade Name Freq PRN Reason Stop Dose Admin Albuterol/Ipratropium 3 ml 10/22/19 07:00 10/25/19 13:50 Duoneb NEB 3 ml [id number] ILANA Administration Albuterol/Ipratropium 3 ml 10/22/19 02:29 10/23/19 03:19 Duoneb NEB 3 ml [id number] PRN Administration SOB &/or Wheezing Aspirin 81 mg 10/23/19 09:00 10/25/19 08:01 Ecotrin PO 81 mg DAILY ILANA Administration Atorvastatin Calcium 80 mg 10/22/19 21:00 10/24/19 20:15 Lipitor PO 80 mg HS ILANA Administration Buspirone HCl 10 mg 10/22/19 15:00 10/25/19 08:01 Buspar PO 10 mg TID ILANA Administration Carvedilol 25 mg 10/22/19 21:00 10/25/19 08:01 Coreg PO 25 mg BID ILANA Administration Clonazepam 0.5 mg 10/22/19 21:00 10/25/19 08:01 Klonopin PO 0.5 mg BID ILANA Administration Folic Acid 1 mg 10/22/19 21:00 10/24/19 20:16 Folvite PO 1 mg HS ILANA Administration Gabapentin 900 mg 10/22/19 15:00 10/25/19 08:01 Neurontin PO 900 mg TID ILANA Administration Azithromycin 500 mg/ Sodium 250 mls @ 250 mls/hr 10/22/19 23:59 10/24/19 23: 40 Chloride IVPB 250 mls Q24HR ILANA Administration Ceftriaxone Sodium 1 gm/ 100 mls @ 200 mls/hr 10/22/19 03:00 10/25/19 02:18 Sodium Chloride IVPB 100 mls Q24HR ILANA Administration Insulin Glargine 75 units/ 0.75 mls @ 0 mls/hr 10/23/19 09:00 10/25/19 08:00 Miscellaneous Medication SC 0.75 mls QAM ILANA Administration As Directed Insulin Human Lispro 0 units 10/22/19 02:29 10/25/19 12:20 Humalog SC 2 unit .MILD SLIDING SCALE PRN Administration Mild Correctional Scale Insulin Human Lispro 35 units 10/22/19 17:00 10/25/19 12:20 Humalog SC 35 unit TID-WM ILANA Administration Lisinopril 20 mg 10/23/19 09:00 10/25/19 08:01 Zestril PO 20 mg DAILY ILANA Administration Metformin HCl 1,000 mg 10/23/19 08:00 10/25/19 08:01 Glucophage PO 1,000 mg BID-WM ILANA Administration Potassium Chloride 20 meq 10/23/19 09:00 10/25/19 09:11 K-Dur PO 20 meq DAILY ILANA Administration Sertraline HCl 100 mg 10/23/19 09:00 10/25/19 08:02 Zoloft PO 100 mg DAILY ILANA Administration Spironolactone 25 mg 10/23/19 09:00 10/25/19 08:01 Aldactone PO 25 mg DAILY ILANA Administration - Exam General Appearance: awake alert General - other findings: obese Eye: anicteric sclera ENT: normocephalic atraumatic Neck: symmetric, no JVD Heart: RRR Respiratory: no wheezes, no ronchi Respiratory - other findings: fair air entry with few bibasal crackles and transmitted sound Gastrointestinal: soft, non-tender, non-distended, normal bowel sounds Gastrointestinal - other findings: obese Extremities: no cyanosis, no edema Neurological: cranial nerve grossly intact, no focal deficits Psychiatric: A&O x 3 Hosp A/P (1) Acute respiratory failure with hypoxia and hypercapnia Code(s): J96.01 - ACUTE RESPIRATORY FAILURE WITH HYPOXIA; J96.02 - ACUTE RESPIRATORY FAILURE WITH HYPERCAPNIA Status: Resolved (2) Acute on chronic diastolic (congestive) heart failure Code(s): I50.33 - ACUTE ON CHRONIC DIASTOLIC (CONGESTIVE) HEART FAILURE Status : Acute (3) COPD exacerbation Code(s): J44.1 - CHRONIC OBSTRUCTIVE PULMONARY DISEASE W (ACUTE) EXACERBATION Status: Acute (4) Insulin dependent diabetes mellitus Code(s): E11.9 - TYPE 2 DIABETES MELLITUS WITHOUT COMPLICATIONS; Z79.4 - PRISON (CURRENT) USE OF INSULIN Status: Acute (5) Physical deconditioning Code(s): R53.81 - OTHER MALAISE Status: Acute (6) HLD (hyperlipidemia) Code(s): E78.5 - HYPERLIPIDEMIA, UNSPECIFIED Status: Chronic Qualifiers: Hyperlipidemia type: unspecified Qualified Code(s): E78.5 - Hyperlipidemia , unspecified (7) HTN (hypertension) Code(s): I10 - ESSENTIAL (PRIMARY) HYPERTENSION Status: Chronic Qualifiers: Hypertension type: essential hypertension Qualified Code(s): I10 - Essential (primary) hypertension (8) Morbid obesity Code(s): E66.01 - MORBID (SEVERE) OBESITY DUE TO EXCESS CALORIES Status: Chronic (9) COSME (obstructive sleep apnea) Code(s): G47.33 - OBSTRUCTIVE SLEEP APNEA (ADULT) (PEDIATRIC) Status: Chronic - Plan Escalate diuretic therapy with addition of metolazone Continue bronchodilators, steroid and NIPPV. Repeat BMP and ABG in the am. Replete electrolytes as needed Continue metformin and insulin therapy Possible discharge tomorrow
[2019-10-25] MEDS ORDERED: Metolazone 2.5 MG TAB PO SCH (14:00)
[2019-10-25] MEDS: Furosemide 40 MG TAB PO SCH (17:26)
[2019-10-25] MEDS: Atorvastatin Calcium 40 MG TAB PO SCH (20:02)
[2019-10-25] MEDS: Folic Acid 1 MG TAB PO SCH (20:02)
[2019-10-25] MEDS: Azithromycin 500 MG in Sodium Chloride 0.9% 250 ML 250 ML IVPB SCH (23:34)
[2019-10-26] MEDS: cefTRIAXone\\ROCEPHIN 1 GM in Sodium Chloride 0.9% 100 ML IVPB SCH (02:11)
[2019-10-26] MEDS: Furosemide 40 MG TAB PO SCH ×2 (05:49→17:14)
[2019-10-26 06:26] LABS: Anion Gap 13 mmol/L (10-20); BUN (Urea Nitrogen) 17 mg/dL (8.4-25.7); Calc. Creatinine Clearance 183 mL/min (70-130); Calcium 8.5 mg/dL (7.8-10.44); Carbon Dioxide 37 mmol/L (23-31); Chloride 92 mmol/L (98-107); Estimated GFR-MDRD Greater than 90; Glucose 73 mg/dL (80-115); Potassium 3.7 mmol/L (3.5-5.1); Sodium 138 mmol/L (136-145)
[2019-10-26] MEDS: metFORMIN 500 MG TAB PO SCH ×2 (07:44→17:14)
[2019-10-26] MEDS: HumaLOG 300 UNITS/3 ML VIAL SC SCH ×3 (07:44→16:37)
[2019-10-26] MEDS: Lisinopril 20 MG TAB PO SCH (07:45)
[2019-10-26] MEDS: clonazePAM 0.5 MG TAB PO SCH ×2 (07:45→20:20)
[2019-10-26] MEDS: busPIRone HCl 10 MG TAB PO SCH ×3 (07:45→20:19)
[2019-10-26] MEDS: Carvedilol 25 MG TAB PO SCH ×2 (07:45→20:20)
[2019-10-26] MEDS: Aspirin 81 mg Enteric Coated Tablet PO SCH (07:45)
[2019-10-26] MEDS: Potassium Chloride 20 MEQ TAB PO SCH (07:46)
[2019-10-26] MEDS: Gabapentin 300 MG CAP PO SCH ×3 (07:46→20:20)
[2019-10-26] MEDS: Spironolactone 25 MG TAB PO SCH (07:46)
[2019-10-26] MEDS: Insulin Glargine 75 UNITS in Pre-Filled Syringe 1 EACH SC SCH (08:29)
[2019-10-26] MEDS: HumaLOG 300 UNITS/3 ML VIAL SC PRN (17:16)
[2019-10-26] MEDS: Atorvastatin Calcium 40 MG TAB PO SCH (20:19)
[2019-10-26] MEDS: Folic Acid 1 MG TAB PO SCH (20:20)
--- NOTE | 2019-10-26 22:35 | PDOC.HOSPP ---
- Subjective Encounter Date: 10/26/19 Encounter Time: 12:30 Subjective: Patient seen and examined for resp failure. SOB on mild exertion. No fever or chills. Cough with some production. No new complaints. No overnight events - Objective Vital Signs & Weight: Vital Signs (12 hours) Temp Pulse Resp BP Pulse Ox 10/26/19 19:59 97.7 F 101 H 20 93/63 92 L Weight Weight 297 lb 6.4 oz I&O: 10/25/19 10/26/19 10/27/19 06:59 06:59 06:59 Intake Total 1960 1999 Output Total 1800 1250 Balance 160 750 Result Diagrams: 10/27/19 05:36 10/27/19 05:36 Additional Labs: Accuchecks 10/26/19 10/26/19 10/26/19 20:00 16:18 11:35 POC Glucose 199 H 195 H 122 H 10/26/19 10/26/19 08:32 05:57 POC Glucose 199 H 83 Radiology Reviewed by me: Yes (CXR - reviewed) Hospitalist ROS - Review of Systems Cardiovascular: denies: chest pain, palpitations, orthopnea, paroxysmal noc. dyspnea, edema, light headedness, other Gastrointestinal: denies: nausea, vomiting, abdominal pain, diarrhea, constipation, melena, hematochezia, other - Medication Medications: Active Medications Generic Name Dose Route Start Last Admin Trade Name Freq PRN Reason Stop Dose Admin Albuterol/Ipratropium 3 ml 10/22/19 07:00 10/26/19 19:41 Duoneb NEB 3 ml [id number] ILANA Administration Albuterol/Ipratropium 3 ml 10/22/19 02:29 10/23/19 03:19 Duoneb NEB 3 ml [id number] PRN Administration SOB &/or Wheezing Aspirin 81 mg 10/23/19 09:00 10/26/19 07:45 Ecotrin PO 81 mg DAILY ILANA Administration Atorvastatin Calcium 80 mg 10/22/19 21:00 10/26/19 20:19 Lipitor PO 80 mg HS ILANA Administration Buspirone HCl 10 mg 10/22/19 15:00 10/26/19 20:19 Buspar PO 10 mg TID ILANA Administration Carvedilol 25 mg 10/22/19 21:00 10/26/19 20:20 Coreg PO 25 mg BID ILANA Administration Clonazepam 0.5 mg 10/22/19 21:00 10/26/19 20:20 Klonopin PO 0.5 mg BID ILANA Administration Folic Acid 1 mg 10/22/19 21:00 10/26/19 20:20 Folvite PO 1 mg HS ILANA Administration Furosemide 40 mg 10/25/19 17:00 10/26/19 17:14 Lasix PO 40 mg 0700,1700 ILANA Administration Gabapentin 900 mg 10/22/19 15:00 10/26/19 20:20 Neurontin PO 900 mg TID ILANA Administration Azithromycin 500 mg/ Sodium 250 mls @ 250 mls/hr 10/22/19 23:59 10/25/19 23: 34 Chloride IVPB 250 mls Q24HR ILANA Administration Ceftriaxone Sodium 1 gm/ 100 mls @ 200 mls/hr 10/22/19 03:00 10/26/19 02:11 Sodium Chloride IVPB 100 mls Q24HR ILANA Administration Insulin Glargine 75 units/ 0.75 mls @ 0 mls/hr 10/23/19 09:00 10/26/19 08:29 Miscellaneous Medication SC 0.75 mls QAM ILANA Administration As Directed Insulin Human Lispro 0 units 10/22/19 02:29 10/26/19 17:16 Humalog SC 2 unit .MILD SLIDING SCALE PRN Administration Mild Correctional Scale Lisinopril 20 mg 10/23/19 09:00 10/26/19 07:45 Zestril PO 20 mg DAILY ILANA Administration Metformin HCl 1,000 mg 10/23/19 08:00 10/26/19 17:14 Glucophage PO 1,000 mg BID-WM ILANA Administration Potassium Chloride 20 meq 10/23/19 09:00 10/26/19 07:46 K-Dur PO 20 meq DAILY ILANA Administration Sertraline HCl 100 mg 10/23/19 09:00 10/26/19 07:46 Zoloft PO 100 mg DAILY ILANA Administration Spironolactone 25 mg 10/23/19 09:00 10/26/19 07:46 Aldactone PO 25 mg DAILY ILANA Administration - Exam Heart: RRR, no rubs Respiratory: normal chest expansion, rales, rhonchi Gastrointestinal: soft, normal bowel sounds Extremities: no cyanosis, no clubbing Hosp A/P - Plan DVT proph w/SCDs Acute on chronic hypoxic resp failure (POA) COPD exacerbation (POA) Acute on chronic diastolic HF exacerbation COSME on CPAP Morbid obesity BMI 43.9 DM2 HTN Other issues per previous notes PLAN: Cont IV Atbx Cont PO Lasix Cont CPAP HS Cont Lantus at 75 units Reduce humalog dose Cont other meds Ambulate
[2019-10-27] MEDS: Azithromycin 500 MG in Sodium Chloride 0.9% 250 ML 250 ML IVPB SCH (00:31)
[2019-10-27] MEDS: cefTRIAXone\\ROCEPHIN 1 GM in Sodium Chloride 0.9% 100 ML IVPB SCH (02:45)
[2019-10-27 05:56] LABS: #Eosinphils 0.2 thou/uL (0.0-0.7); #Monocytes 0.8 thou/uL (0.11-0.59); #Neutrophils 5.3 thou/uL (1.40-6.50); %Basophils 0.2 % (0.0-1.0); %Eosinophils 1.9 % (0.0-10.0); %Lymphocytes 39.3 % (21.0-51.0); %Monocytes 7.4 % (0.0-10.0); %Neutrophils 51.3 % (42.0-75.0); Hemoglobin 13.8 g/dL (14.0-18.0); Mean Corpuscular HGB CONC 33.5 g/dL (32.0-36.0); Mean Corpuscular Volume 92.5 fL (78.0-98.0); Mean Platelet Volume 8.5 fL (7.4-10.4); Platelet Count 213 thou/uL (130-400); RBC Distribution Width 12.1 % (11.5-14.5); Red Blood Cell (RBC) Count 4.43 mill/uL (4.70-6.10); White Blood Cell (WBC) Count 10.3 thou/uL (4.8-10.8)
[2019-10-27 06:19] LABS: BUN (Urea Nitrogen) 25 mg/dL (8.4-25.7); Calc. Creatinine Clearance 155 mL/min (70-130); Calcium 8.8 mg/dL (7.8-10.44); Estimated GFR-MDRD 81; Glucose 118 mg/dL (80-115)
[2019-10-27 06:28] LABS: Anion Gap 14 mmol/L (10-20); Carbon Dioxide 37 mmol/L (23-31); Chloride 91 mmol/L (98-107); Potassium 3.9 mmol/L (3.5-5.1); Sodium 138 mmol/L (136-145)
[2019-10-27] MEDS: busPIRone HCl 10 MG TAB PO SCH ×3 (07:44→20:07)
[2019-10-27] MEDS: Aspirin 81 mg Enteric Coated Tablet PO SCH (07:45)
[2019-10-27] MEDS: Gabapentin 300 MG CAP PO SCH ×3 (07:45→20:07)
[2019-10-27] MEDS: Potassium Chloride 20 MEQ TAB PO SCH (07:45)
[2019-10-27] MEDS: Carvedilol 25 MG TAB PO SCH ×2 (07:45→20:07)
[2019-10-27] MEDS: metFORMIN 500 MG TAB PO SCH ×2 (07:45→17:30)
[2019-10-27] MEDS: Furosemide 40 MG TAB PO SCH ×2 (07:46→17:30)
[2019-10-27] MEDS: HumaLOG 300 UNITS/3 ML VIAL SC SCH ×3 (07:46→17:14)
[2019-10-27] MEDS: clonazePAM 0.5 MG TAB PO SCH ×2 (07:46→20:07)
[2019-10-27] MEDS: Lisinopril 20 MG TAB PO SCH (07:46)
[2019-10-27] MEDS: Spironolactone 25 MG TAB PO SCH (07:46)
[2019-10-27] MEDS: Insulin Glargine 75 UNITS in Pre-Filled Syringe 1 EACH SC SCH (09:10)
--- NOTE | 2019-10-27 17:10 | PRG ---
DATE OF SERVICE: 10/27/2019 SERVICE: Pulmonary Medicine. INTERVAL HISTORY: The patient is doing fine from respiratory standpoint. He is basically back to his baseline. He denies any fevers or chills. He has a little bit of a cough, but not bringing up any phlegm. His lower extremity swelling is improved. PHYSICAL EXAMINATION: VITAL SIGNS: Afebrile, pulse 84, blood pressure 113/75, respirations 15, and saturation 96% on 2 L nasal cannula. GENERAL: The patient is awake and alert, in no apparent distress. LUNGS: Decent air entry. This is profoundly better compared to Saturday. As a result, hear polyphonic wheezing. Dependent crackles are still present. Rhonchi are there, but clear with cough. HEART: Normal rate. Regular. ABDOMEN: Soft, nontender, and nondistended. Bowel sounds are positive. MUSCULOSKELETAL: No cyanosis or clubbing. There is trace pitting in the left lower extremity, and 1+ pitting in the right lower extremity. NEUROLOGIC: Grossly nonfocal. LABORATORY DATA: WBC 10.3, hemoglobin 13.8, and platelets 213,000. Bicarb 37. Basic metabolic profile is otherwise unremarkable. ASSESSMENT: 1. Acute on chronic hypoxic and hypercapnic respiratory failure. 2. Chronic obstructive pulmonary disease with acute exacerbation. 3. Acute on chronic systolic and diastolic heart failure. DISCUSSION AND PLAN: The patient is doing fine from respiratory standpoint. At this point, he has essentially returned to baseline. If he continues to do well into tomorrow, he can be considered for transition out of the hospital. He has completed a course of steroids, and antibiotics. Home inhalers can be resumed on discharge. The patient is severely deconditioned. I have counseled him to pursue reconditioning exercises in the outpatient setting. At this point, he has no further requirements for inpatient Pulmonary or Critical Care opinion, and I will sign off. Please call with additional questions or concerns through time. Job ID: [id number]
[2019-10-27] MEDS: Folic Acid 1 MG TAB PO SCH (20:07)
[2019-10-27] MEDS: Atorvastatin Calcium 40 MG TAB PO SCH (20:07)
[2019-10-28] MEDS: Furosemide 40 MG TAB PO SCH ×2 (06:25→16:46)
[2019-10-28 07:44] VITALS: BP 121/69; TEMP 97.9
--- NOTE | 2019-10-28 08:26 | PDOC.HOSPP ---
- Subjective Encounter Date: 10/27/19 Encounter Time: 11:00 Subjective: Patient seen and examined for resp failure. SOB on mild to mod exertion. Mild cough. No new complaints. No overnight events - Objective Vital Signs & Weight: Vital Signs (12 hours) Temp Pulse Resp BP Pulse Ox 10/28/19 07:11 97.9 F 76 20 121/69 94 L 10/28/19 06:50 86 16 97 10/28/19 04:00 97.7 F 76 18 106/67 96 10/28/19 01:03 95 10/28/19 00:00 98.2 F 78 20 98/60 95 10/27/19 21:00 93 L Weight Weight 297 lb 6.4 oz Result Diagrams: 10/27/19 05:36 10/27/19 05:36 Additional Labs: Accuchecks 10/28/19 10/27/19 10/27/19 04:20 20:11 16:48 POC Glucose 159 H 184 H 90 10/27/19 11:11 POC Glucose 170 H Hospitalist ROS - Review of Systems Cardiovascular: denies: chest pain, palpitations, orthopnea, paroxysmal noc. dyspnea, edema, light headedness, other Gastrointestinal: denies: nausea, vomiting, abdominal pain, diarrhea, constipation, melena, hematochezia, other - Medication Medications: Active Medications Generic Name Dose Route Start Last Admin Trade Name Freq PRN Reason Stop Dose Admin Albuterol/Ipratropium 3 ml 10/22/19 07:00 10/28/19 06:50 Duoneb NEB 3 ml [id number] ILANA Administration Albuterol/Ipratropium 3 ml 10/22/19 02:29 10/23/19 03:19 Duoneb NEB 3 ml [id number] PRN Administration SOB &/or Wheezing Aspirin 81 mg 10/23/19 09:00 10/27/19 07:45 Ecotrin PO 81 mg DAILY ILANA Administration Atorvastatin Calcium 80 mg 10/22/19 21:00 10/27/19 20:07 Lipitor PO 80 mg HS ILANA Administration Buspirone HCl 10 mg 10/22/19 15:00 10/27/19 20:07 Buspar PO 10 mg TID ILANA Administration Carvedilol 25 mg 10/22/19 21:00 10/27/19 20:07 Coreg PO 25 mg BID ILANA Administration Clonazepam 0.5 mg 10/22/19 21:00 10/27/19 20:07 Klonopin PO 0.5 mg BID ILANA Administration Folic Acid 1 mg 10/22/19 21:00 10/27/19 20:07 Folvite PO 1 mg HS ILANA Administration Furosemide 40 mg 10/25/19 17:00 10/28/19 06:25 Lasix PO 40 mg 0700,1700 ILANA Administration Gabapentin 900 mg 10/22/19 15:00 10/27/19 20:07 Neurontin PO 900 mg TID ILANA Administration Insulin Glargine 75 units/ 0.75 mls @ 0 mls/hr 10/23/19 09:00 10/27/19 09:10 Miscellaneous Medication SC 0.75 mls QAM ILANA Administration As Directed Insulin Human Lispro 0 units 10/22/19 02:29 10/26/19 17:16 Humalog SC 2 unit .MILD SLIDING SCALE PRN Administration Mild Correctional Scale Lisinopril 20 mg 10/23/19 09:00 10/27/19 07:46 Zestril PO 20 mg DAILY ILANA Administration Metformin HCl 1,000 mg 10/23/19 08:00 10/27/19 17:30 Glucophage PO 1,000 mg BID-WM ILANA Administration Potassium Chloride 20 meq 10/23/19 09:00 10/27/19 07:45 K-Dur PO 20 meq DAILY ILANA Administration Sertraline HCl 100 mg 10/23/19 09:00 10/27/19 07:45 Zoloft PO 100 mg DAILY ILANA Administration Spironolactone 25 mg 10/23/19 09:00 10/27/19 07:46 Aldactone PO 25 mg DAILY ILANA Administration - Exam General Appearance: NAD Heart: RRR, no gallops Respiratory: CTAB, no rales, rhonchi Gastrointestinal: soft, non-distended, normal bowel sounds Extremities: no edema Hosp A/P - Plan DVT proph w/SCDs Acute on chronic hypoxic resp failure (POA) COPD exacerbation (POA) Acute on chronic diastolic HF exacerbation COSME on CPAP Morbid obesity BMI 43.9 DM2 HTN Other issues per previous notes PLAN: Cont IV Ceftriaxone/Azithromycin Cont PO Lasix Cont CPAP HS Cont Lantus Cont humalog sliding scale Cont other meds Ambulate
[2019-10-28] MEDS: Gabapentin 300 MG CAP PO SCH ×2 (09:40→16:46)
[2019-10-28] MEDS: Potassium Chloride 20 MEQ TAB PO SCH (09:40)
[2019-10-28] MEDS: Carvedilol 25 MG TAB PO SCH (09:40)
[2019-10-28] MEDS: metFORMIN 500 MG TAB PO SCH ×2 (09:41→16:46)
[2019-10-28] MEDS: Aspirin 81 mg Enteric Coated Tablet PO SCH (09:41)
[2019-10-28] MEDS: Lisinopril 20 MG TAB PO SCH (09:41)
[2019-10-28] MEDS: busPIRone HCl 10 MG TAB PO SCH ×2 (09:42→16:47)
[2019-10-28] MEDS: Spironolactone 25 MG TAB PO SCH (09:42)
[2019-10-28] MEDS: clonazePAM 0.5 MG TAB PO SCH (09:42)
[2019-10-28] MEDS: Insulin Glargine 75 UNITS in Pre-Filled Syringe 1 EACH SC SCH (09:43)
[2019-10-28] MEDS: HumaLOG 300 UNITS/3 ML VIAL SC PRN (13:19)
--- NOTE | 2019-10-29 09:53 | DIS ---
DATE OF ADMISSION: 10/22/2019 DATE OF DISCHARGE: 10/28/2019 DISCHARGE DISPOSITION: Home. FOLLOWUP: 1. Follow up with primary care physician at the [facility] in 1 week. 2. Follow up with Pulmonary, Dr. Ortiz, as needed. ALLERGIES: NO KNOWN DRUG ALLERGIES. DISCHARGE MEDICATIONS: Same as admission medication. The patient was extensively counseled to be compliant with fluid restriction as well as monitor the weight on a daily basis. The patient was seen and examined on the day of discharge. Denies any new complaints. Shortness of breath has improved. BRIEF HOSPITAL COURSE: The patient is a 64-year-old male with congestive heart failure and COPD, presented to the emergency room on October 22, 2019, with shortness of breath along with cough, wheezing, and generalized weakness. He initially presented to [facility] and was transferred to this facility. He was monitored on the medical floor. He was also seen by Pulmonary, Dr. Ortiz. He showed good improvement with IV ceftriaxone, azithromycin, steroids along with intermittent IV diuretics. Shortness of breath has significantly improved. He is almost back to his baseline. He has completed the antibiotic and steroid treatment. He has been cleared by Pulmonary, Dr. Ortiz, for discharge. FINAL DIAGNOSES: 1. Acute on chronic hypoxic and hypercapnic respiratory failure, present on admission. 2. Chronic obstructive pulmonary disease exacerbation. 3. Acute on chronic diastolic heart failure exacerbation. Echocardiogram earlier this year showed ejection fraction 55% to 60%. 4. Obstructive sleep apnea. 5. Morbid obesity with a BMI of 43.9. 6. Hypertension. 7. Diabetes mellitus type 2. 8. History of AICD placement. 9. Mild anemia, suspected chronic. PLAN: Plan of care was discussed with the patient in detail. He stated understanding. Job ID: [id number]
== END 2019-10-28 17:07 | disposition home or self-care (01) | DRG 291 ==
LOC: ERS 01:16 → ERHOLD 02:34 → T4-A 12:20
PROVIDERS: ADMIT Internal Medicine; ATTEND Internal Medicine
DX: I11.0 Hypertensive heart disease with heart failure (principal); J96.21 Acute and chronic respiratory failure with hypoxia; J96.22 Acute and chronic respiratory failure with hypercapnia; J44.1 Chronic obstructive pulmonary disease with (acute) exacerbation; Z68.41 Body mass index [BMI] 40.0-44.9, adult; I50.43 Acute on chronic combined systolic (congestive) and diastolic (congestive) heart failure; E11.9 Type 2 diabetes mellitus without complications; E78.5 Hyperlipidemia, unspecified; I50.9 Heart failure, unspecified; F43.10 Post-traumatic stress disorder, unspecified; E66.01 Morbid (severe) obesity due to excess calories; G47.33 Obstructive sleep apnea (adult) (pediatric); Z99.81 Dependence on supplemental oxygen; Z95.0 Presence of cardiac pacemaker; F17.210 Nicotine dependence, cigarettes, uncomplicated
CPT/HCPCS: 36415; 36416; 80048; 80053; 80069; 83735; 83880; 84484; 85025; 94640; 99285; J0456; J0696; J1815; J1940; J2920; J3490; J7050; J7512; J7620

== ENCOUNTER 2021-04-29 18:17 | Inpatient (IN) | payer OTHER, SELFPAY ==
[2021-04-29] MEDS ORDERED: methylPREDNISolone Sod Succ/PF 125 MG/2 ML VIAL ONE (18:30)
[2021-04-29] MEDS ORDERED: Fentanyl 100 MCG/2 ML VIAL ONE (18:45)
[2021-04-29 18:46] LABS: Hemoglobin 12.4 g/dL (14.0-18.0); Mean Corpuscular HGB CONC 32.2 g/dL (32.0-36.0); Mean Corpuscular Hemoglobin 31.2 pg (27.0-31.0); Mean Corpuscular Volume 97.1 fL (78.0-98.0); Platelet Count 295 thou/uL (130-400); RBC Distribution Width 12.6 % (11.5-14.5); Red Blood Cell (RBC) Count 3.96 mill/uL (4.70-6.10); White Blood Cell (WBC) Count 31.3 thou/uL (4.8-10.8)
[2021-04-29 18:50] LABS: Bacteria/HPF 4+ HPF (None Seen); Bilirubin Negative (Negative); Blood, Urine 3+ (Negative); Clarity Turbid (Clear); Glucose, Urine (Dipstick) 500 mg/dL (Negative); Ketone, Urine Negative (Negative); Leukocyte Negative Leu/uL (Negative); Nitrite Negative (Negative); Protein, Urine (Dipstick) 600 mg/dL (Neg-Trace); Squamous Epithelial 0-3 HPF (0-3); Urobilinogen Normal mg/dL (Less than 2); pH, Urine 6.5 (5.0-9.0)
[2021-04-29 18:50] LABS: Actual Bicarbonate (HCO3a) 28.8 mEq/L (22-28); Analyzer IN Cardio ER; Base Excess (BEa) -1.4 mEq/L (-2.0 to +3.0); Calcium, Ionized (arterial) 1.04 mmol/L (1.12-1.30); Carboxyhemoglobin (COHb) 1.9 gm% (0.0-3.0); Hemoglobin (Hb) 12.3 g/dL (14.0-18.0); O2 Tension (PaO2), arterial 141.5 mmHg (> 80.0); Potassium - ABG Lab 5.04 mmol/L (3.70-5.30); pH, Arterial 7.18 (7.35-7.45)
[2021-04-29 18:51] LABS: ALV-art Gradient 258.225 mmHg (0-20); CO2 Tension 79.5 mmHg (35.0-45.0); Puncture Site LBA
[2021-04-29 18:51] LABS: RBC/HPF Greater than 50 HPF (0-3)
[2021-04-29] MEDS ORDERED: Fentanyl CADD 100 ML IV SCH ×2 (19:00→21:30)
[2021-04-29 19:06] LABS: ALT (SGPT) 70 U/L (8-55); AST (SGOT) 83 U/L (5-34); Albumin 3.5 g/dL (3.4-4.8); Alkaline Phosphatase 166 U/L (40-110); Anion Gap 21 mmol/L (10-20); BUN (Urea Nitrogen) 18 mg/dL (8.4-25.7); Bilirubin, Total 0.2 mg/dL (0.2-1.2); Calc. Creatinine Clearance 0 mL/min (70-130); Calcium 7.9 mg/dL (7.8-10.44); Carbon Dioxide 27 mmol/L (23-31); Chloride 96 mmol/L (98-107); Glucose 390 mg/dL (80-115); Potassium 5.7 mmol/L (3.5-5.1); Protein, Total 6.5 g/dL (5.8-8.1); Sodium 138 mmol/L (136-145)
[2021-04-29 19:07] LABS: Band 35 % (5-11); Lymphocytes 6 % (21-51); MDiff Complete? YES; Metamyelocyte 2 % (0-0); Monocytes 1 % (0-10); Myelocyte 4 % (0-0); Neutrophil 40 % (42-75); Platelet Morphology Comment Appears Adequate; Polychromasia SLIGHT = 2-3 cells (100X) (0-2/hpf); Reactive Lymphocytes 12 % (0-10)
[2021-04-29] MEDS ORDERED: Norepinephrine 4 MG/4 ML VIAL ONE (19:07)
[2021-04-29] MEDS ORDERED: Rocuronium Bromide 10 MG/ML (10ML VIAL) ONE ×2 (19:08→19:09)
[2021-04-29] MEDS ORDERED: Ketamine 50 MG/ML (10ML VIAL) ONE (19:08)
[2021-04-29 19:11] LABS: Troponin I 0.038 ng/mL (< 0.028)
[2021-04-29] MEDS ORDERED: Vancomycin 1 GM/200 ML BAG ONE (19:33)
[2021-04-29] MEDS ORDERED: Piperacillin/Tazobactam 4.5 GM VIAL ONE (19:33)
[2021-04-29] MEDS ORDERED: Guaifenesin DM 100-10/5 ML UDCUP PO PRN (20:59)
[2021-04-29] MEDS ORDERED: Melatonin 3 MG TAB PO PRN (20:59)
[2021-04-29] MEDS ORDERED: Ondansetron PF 4 MG/2 ML Vial IVP PRN (20:59)
[2021-04-29] MEDS ORDERED: Promethazine HCl 12.5 MG in Sodium Chloride 0.9% 50 ML IVPB PRN (20:59)
[2021-04-29] MEDS ORDERED: HumaLOG 300 UNITS/3 ML VIAL SC PRN (20:59)
[2021-04-29] MEDS ORDERED: hydrALAZINE 20 MG/ML VIAL SLOW IVP PRN (20:59)
[2021-04-29] MEDS ORDERED: Morphine 2 MG/ML VIAL SLOW IVP PRN (20:59)
[2021-04-29] MEDS ORDERED: Sodium Chloride 0.9% 1,000 ML IV SCH (21:00)
[2021-04-29] MEDS ORDERED: Electrolyte Replacement Protocol 1 EACH FS SCH (21:00)
[2021-04-29] MEDS ORDERED: Milk Of Magnesia 30 ML UDCUP PO PRN (21:13)
[2021-04-29] MEDS ORDERED: Norepinephrine 8 MG/0.9% NS 250 ML IVPB PRN (21:13)
[2021-04-29] MEDS ORDERED: Mag-Al 1200 mg/1200 mg/30 ML UDCUP PO PRN (21:13)
[2021-04-29] MEDS ORDERED: Acetaminophen 650 MG Suppository PR PRN (21:13)
[2021-04-29] MEDS ORDERED: Phenylephrine 40 MG/NS 250 ML 250 ML IVPB PRN (21:13)
[2021-04-29] MEDS ORDERED: Bisacodyl 10 MG SUPP PR PRN (21:13)
[2021-04-29] MEDS ORDERED: Ventilator Sedation Protocol 1 EACH FS SCH (21:15)
[2021-04-29 21:29] LABS: SARS-CoV-2 NAA Rapid Test Not Detected (NotDetected)
[2021-04-29] MEDS ORDERED: Fentanyl BOLUS 250 ML IVPB PRN (21:30)
[2021-04-29] MEDS ORDERED: Propofol BOLUS 1,000 MG/100 ML VIAL IV PRN (21:30)
[2021-04-29] MEDS ORDERED: DISCONTINUE PREVIOUS NARCOTIC PAIN MEDICATIONS AND BENZODIAZEPINES FS SCH (21:30)
[2021-04-29] MEDS: Heparin 5,000 UNITS/ML VIAL SC SCH (22:05)
[2021-04-29 23:20] LABS: Actual Bicarbonate (HCO3v) 23 mEq/L (22-28); Base Excess -1.2 mEq/L (-2.0 to +3.0); Chloride (VBG) 102 mmol/L (98-106); Hemoglobin (Hb) 13.1 g/dL (13.1-17.2); Potassium (VBG) 4.17 mmol/L (3.70-5.30); Sodium 135.2 mmol/L (133-146); pH (venous) 7.42 (7.32-7.43)
[2021-04-29] MEDS: Piperacillin/Tazobactam 3.375 GM, Admixture Fee 1 EACH in Sodium Chloride 0.9% 100 ML IVPB SCH (23:20)
[2021-04-29 23:21] LABS: Hemoglobin 12.3 g/dL (14.0-18.0); Mean Corpuscular HGB CONC 33.2 g/dL (32.0-36.0); Mean Corpuscular Hemoglobin 31.5 pg (27.0-31.0); Mean Corpuscular Volume 94.9 fL (78.0-98.0); Platelet Count 253 thou/uL (130-400); RBC Distribution Width 12.7 % (11.5-14.5); Red Blood Cell (RBC) Count 3.91 mill/uL (4.70-6.10); White Blood Cell (WBC) Count 27.9 thou/uL (4.8-10.8)
[2021-04-29 23:35] LABS: Lactic Acid 2.3 mmol/L (0.5-2.2)
[2021-04-29 23:38] LABS: Anion Gap 19 mmol/L (10-20); BUN (Urea Nitrogen) 25 mg/dL (8.4-25.7); Calc. Creatinine Clearance 0 mL/min (70-130); Calcium 7.4 mg/dL (7.8-10.44); Carbon Dioxide 22 mmol/L (23-31); Chloride 102 mmol/L (98-107); Glucose 433 mg/dL (80-115); Magnesium 1.5 mg/dL (1.6-2.6); Potassium 4.3 mmol/L (3.5-5.1); Sodium 139 mmol/L (136-145)
[2021-04-29 23:41] LABS: Band 19 % (5-11); MDiff Complete? YES; Monocytes 6 % (0-10); Neutrophil 75 % (42-75)
[2021-04-29] MEDS ORDERED: Vancomycin 1 GM in Premix Bag 1 BAG IVPB SCH (23:59)
[2021-04-30] MEDS: Propofol 1,000 MG/100 ML VIAL IV PRN ×4 (00:15→21:54)
[2021-04-30] MEDS: Lorazepam 2 MG/ML VIAL SLOW IVP PRN ×5 (00:15→20:03)
[2021-04-30] MEDS ORDERED: Ipratropium Bromide 2.5 ml Neb NEB SCH (01:00)
[2021-04-30] MEDS ORDERED: Magnesium 2 GM/50 ML 2 GM in Premix Bag 1 BAG IVPB SCH ×2 (01:00→12:45)
[2021-04-30] MEDS: HUMULIN R 100 UNITS in Sodium Chloride 0.9% 100 ML IVPB SCH ×2 (01:02→07:35)
[2021-04-30 04:44] LABS: Anion Gap 19 mmol/L (10-20); BUN (Urea Nitrogen) 25 mg/dL (8.4-25.7); Calc. Creatinine Clearance 111 mL/min (70-130); Calcium 7.5 mg/dL (7.8-10.44); Carbon Dioxide 23 mmol/L (23-31); Chloride 103 mmol/L (98-107); Glucose 361 mg/dL (80-115); Magnesium 1.9 mg/dL (1.6-2.6); Potassium 3.5 mmol/L (3.5-5.1); Sodium 141 mmol/L (136-145)
[2021-04-30] MEDS: Piperacillin/Tazobactam 3.375 GM, Admixture Fee 1 EACH in Sodium Chloride 0.9% 100 ML IVPB SCH ×4 (04:55→23:40)
[2021-04-30 05:05] LABS: Band 17 % (5-11); Eosinophils 1 % (0-10); Lymphocytes 3 % (21-51); MDiff Complete? YES; Mean Corpuscular HGB CONC 34.5 g/dL (32.0-36.0); Mean Corpuscular Hemoglobin 32.4 pg (27.0-31.0); Mean Corpuscular Volume 93.9 fL (78.0-98.0); Monocytes 2 % (0-10); Neutrophil 77 % (42-75); Platelet Count 239 thou/uL (130-400); RBC Distribution Width 12.6 % (11.5-14.5); White Blood Cell (WBC) Count 22.4 thou/uL (4.8-10.8)
[2021-04-30] MEDS ORDERED: Magnesium Sulfate 2 GM in Sodium Chloride 0.9% 100 ML IVPB SCH (05:15)
[2021-04-30] MEDS: methylPREDNISolone Sod Succ/PF 125 MG/2 ML VIAL IVP SCH ×3 (05:16→21:54)
[2021-04-30] MEDS: Polyethylene Glycol 3350 17 GM Packet PO SCH (07:36)
[2021-04-30] MEDS: Famotidine 40 MG/5 ML Oral Suspension PER TUBE SCH ×2 (07:36→20:04)
[2021-04-30] MEDS: Heparin 5,000 UNITS/ML VIAL SC SCH ×2 (07:36→20:04)
[2021-04-30] MEDS: Potassium Chloride 20 MEQ in Premix Bag 1 BAG IVPB SCH ×2 (07:37→10:21)
[2021-04-30] MEDS: Acetaminophen 650 MG/20.3 ML UDCUP PO PRN ×3 (10:20→20:03)
[2021-04-30] MEDS: VANCOMYCIN 1.75 GM/350 ML BAG 1.75 GM in Premix Bag 1 BAG IVPB SCH (11:12)
[2021-04-30 12:24] LABS: Lactic Acid 2.5 mmol/L (0.5-2.2)
[2021-04-30 12:28] LABS: Anion Gap 17 mmol/L (10-20); BUN (Urea Nitrogen) 21 mg/dL (8.4-25.7); Calc. Creatinine Clearance 131 mL/min (70-130); Calcium 7.8 mg/dL (7.8-10.44); Carbon Dioxide 22 mmol/L (23-31); Chloride 105 mmol/L (98-107); Glucose 182 mg/dL (80-115); Potassium 3.4 mmol/L (3.5-5.1); Sodium 141 mmol/L (136-145)
[2021-04-30 12:50] LABS: CKMB 4.2 ng/mL (0-6.6)
[2021-04-30] MEDS ORDERED: Potassium Chloride 40 MEQ in Premix Bag 1 BAG IVPB SCH (13:00)
[2021-05-01] MEDS: Lorazepam 2 MG/ML VIAL SLOW IVP PRN ×6 (00:20→20:32)
[2021-05-01] MEDS: VANCOMYCIN 1.75 GM/350 ML BAG 1.75 GM in Premix Bag 1 BAG IVPB SCH ×2 (00:20→10:21)
[2021-05-01] MEDS: Propofol 1,000 MG/100 ML VIAL IV PRN ×5 (02:54→21:56)
[2021-05-01] MEDS: Acetaminophen 650 MG/20.3 ML UDCUP PO PRN ×4 (04:19→20:32)
[2021-05-01] MEDS: Piperacillin/Tazobactam 3.375 GM, Admixture Fee 1 EACH in Sodium Chloride 0.9% 100 ML IVPB SCH ×4 (04:25→21:06)
[2021-05-01 04:57] LABS: Hemoglobin 11.7 g/dL (14.0-18.0); Mean Corpuscular Hemoglobin 31.9 pg (27.0-31.0); Mean Corpuscular Volume 93.9 fL (78.0-98.0); Mean Platelet Volume 7.8 fL (7.4-10.4); Platelet Count 208 thou/uL (130-400); Red Blood Cell (RBC) Count 3.68 mill/uL (4.70-6.10); White Blood Cell (WBC) Count 22.9 thou/uL (4.8-10.8)
[2021-05-01 05:20] LABS: Band 7 % (5-11); Lymphocytes 6 % (21-51); MDiff Complete? YES; Monocytes 2 % (0-10); Neutrophil 85 % (42-75)
[2021-05-01] MEDS: methylPREDNISolone Sod Succ/PF 125 MG/2 ML VIAL IVP SCH (05:22)
[2021-05-01 05:37] LABS: Anion Gap 13 mmol/L (10-20); BUN (Urea Nitrogen) 19 mg/dL (8.4-25.7); Calc. Creatinine Clearance 137 mL/min (70-130); Carbon Dioxide 24 mmol/L (23-31); Chloride 106 mmol/L (98-107); Glucose 215 mg/dL (80-115); Magnesium 2.7 mg/dL (1.6-2.6); Potassium 3.5 mmol/L (3.5-5.1); Sodium 139 mmol/L (136-145)
[2021-05-01] MEDS: Heparin 5,000 UNITS/ML VIAL SC SCH ×2 (07:23→21:06)
[2021-05-01] MEDS: Polyethylene Glycol 3350 17 GM Packet PO SCH (07:24)
[2021-05-01] MEDS: Famotidine 40 MG/5 ML Oral Suspension PER TUBE SCH ×2 (07:24→20:32)
[2021-05-01] MEDS ORDERED: Potassium Chloride 40 MEQ in Premix Bag 1 BAG IVPB SCH (07:45)
[2021-05-01 07:46] LABS: Actual Bicarbonate (HCO3a) 22.3 mEq/L (22-28); Base Excess (BEa) -0.7 mEq/L (-2.0 to +3.0); CO2 Tension 31.8 mmHg (35.0-45.0); Calcium, Ionized (arterial) 1.05 mmol/L (1.12-1.30); Carboxyhemoglobin (COHb) 0.9 gm% (0.0-3.0); Hemoglobin (Hb) 12.9 g/dL (14.0-18.0); O2 Tension (PaO2), arterial 78.3 mmHg (> 80.0); Potassium - ABG Lab 3.54 mmol/L (3.70-5.30); pH, Arterial 7.46 (7.35-7.45)
[2021-05-01 07:47] LABS: Puncture Site RRA
[2021-05-01] MEDS: HUMULIN R 100 UNITS in Sodium Chloride 0.9% 100 ML IVPB SCH (08:43)
[2021-05-01] MEDS ORDERED: Lantus 1000 UNITS/10 ML VIAL SC SCH (09:30)
[2021-05-01] MEDS ORDERED: methylPREDNISolone Sod Succ/PF 125 MG/2 ML VIAL IVP SCH ×2 (12:00→21:00)
[2021-05-01] MEDS: Insulin Regular 300 UNITS/3 ML VIAL SC PRN ×2 (15:49→21:08)
[2021-05-01] MEDS: Lantus 1000 UNITS/10 ML VIAL SC SCH (21:06)
[2021-05-01 23:56] LABS: Vancomycin, Trough 15.8 ug/mL
[2021-05-02] MEDS: VANCOMYCIN 1.75 GM/350 ML BAG 1.75 GM in Premix Bag 1 BAG IVPB SCH (00:07)
[2021-05-02] MEDS: Propofol 1,000 MG/100 ML VIAL IV PRN ×6 (01:02→20:23)
[2021-05-02] MEDS: Acetaminophen 650 MG/20.3 ML UDCUP PO PRN ×2 (03:38→23:03)
[2021-05-02] MEDS: Insulin Regular 300 UNITS/3 ML VIAL SC PRN ×4 (03:38→21:06)
[2021-05-02] MEDS: Piperacillin/Tazobactam 3.375 GM, Admixture Fee 1 EACH in Sodium Chloride 0.9% 100 ML IVPB SCH ×2 (03:38→11:31)
[2021-05-02 03:46] LABS: Anion Gap 15 mmol/L (10-20); BUN (Urea Nitrogen) 20 mg/dL (8.4-25.7); Calc. Creatinine Clearance 135 mL/min (70-130); Calcium 7.9 mg/dL (7.8-10.44); Carbon Dioxide 18 mmol/L (23-31); Chloride 107 mmol/L (98-107); Glucose 317 mg/dL (80-115); Magnesium 2.6 mg/dL (1.6-2.6); Potassium 4.2 mmol/L (3.5-5.1); Sodium 136 mmol/L (136-145)
[2021-05-02 03:53] LABS: Band 4 % (5-11); Hemoglobin 11.4 g/dL (14.0-18.0); Lymphocytes 7 % (21-51); MDiff Complete? YES; Mean Corpuscular HGB CONC 33.7 g/dL (32.0-36.0); Mean Corpuscular Hemoglobin 31.9 pg (27.0-31.0); Mean Corpuscular Volume 94.7 fL (78.0-98.0); Mean Platelet Volume 8.1 fL (7.4-10.4); Monocytes 6 % (0-10); Neutrophil 83 % (42-75); Platelet Count 181 thou/uL (130-400); Red Blood Cell (RBC) Count 3.58 mill/uL (4.70-6.10); White Blood Cell (WBC) Count 21.1 thou/uL (4.8-10.8)
[2021-05-02 06:51] LABS: Troponin I 0.071 ng/mL (< 0.028)
[2021-05-02 07:10] LABS: Actual Bicarbonate (HCO3a) 21.7 mEq/L (22-28); Base Excess (BEa) -3.1 mEq/L (-2.0 to +3.0); CO2 Tension 38.1 mmHg (35.0-45.0); Calcium, Ionized (arterial) 1.08 mmol/L (1.12-1.30); Carboxyhemoglobin (COHb) 0.5 gm% (0.0-3.0); Hemoglobin (Hb) 12.7 g/dL (14.0-18.0); O2 Tension (PaO2), arterial 79.2 mmHg (> 80.0); Potassium - ABG Lab 4.17 mmol/L (3.70-5.30); pH, Arterial 7.37 (7.35-7.45)
[2021-05-02 07:11] LABS: ALV-art Gradient 158.375 mmHg (0-20); Puncture Site RRA
[2021-05-02] MEDS: Famotidine 40 MG/5 ML Oral Suspension PER TUBE SCH ×2 (09:07→20:23)
[2021-05-02] MEDS: Heparin 5,000 UNITS/ML VIAL SC SCH ×2 (09:07→21:06)
[2021-05-02] MEDS: methylPREDNISolone Sod Succ 40 MG VIAL IVP SCH (09:07)
[2021-05-02] MEDS: Lantus 1000 UNITS/10 ML VIAL SC SCH ×2 (09:08→21:06)
[2021-05-02] MEDS: Polyethylene Glycol 3350 17 GM Packet PO SCH (09:21)
[2021-05-02] MEDS: Piperacillin/Tazobactam 3.375 GM in Sodium Chloride 0.9% 100 ML IVPB SCH ×2 (11:23→17:24)
[2021-05-02] MEDS: VANCOMYCIN 2 GRAM/400 ML BAG 2 GM in Premix Bag 1 BAG IVPB SCH (12:31)
[2021-05-02] MEDS: Lorazepam 2 MG/ML VIAL SLOW IVP PRN (20:23)
[2021-05-03] MEDS: Propofol 1,000 MG/100 ML VIAL IV PRN ×7 (00:09→23:58)
[2021-05-03] MEDS: Lorazepam 2 MG/ML VIAL SLOW IVP PRN (02:35)
[2021-05-03] MEDS: Labetalol HCl 100 MG/20 ML VIAL SLOW IVP PRN ×2 (03:03→22:26)
[2021-05-03 04:41] LABS: #Lymphocytes 1.6 thou/uL (1.20-3.40); #Monocytes 1.3 thou/uL (0.11-0.59); %Eosinophils 0.1 % (0.0-10.0); %Lymphocytes 7.8 % (21.0-51.0); %Monocytes 6.7 % (0.0-10.0); %Neutrophils 85.3 % (42.0-75.0); Hemoglobin 11.7 g/dL (14.0-18.0); Mean Corpuscular HGB CONC 33.6 g/dL (32.0-36.0); Mean Corpuscular Hemoglobin 31.9 pg (27.0-31.0); Mean Platelet Volume 8.3 fL (7.4-10.4); Platelet Count 174 thou/uL (130-400); RBC Distribution Width 12.9 % (11.5-14.5); Red Blood Cell (RBC) Count 3.67 mill/uL (4.70-6.10); White Blood Cell (WBC) Count 19.9 thou/uL (4.8-10.8)
[2021-05-03 05:01] LABS: Anion Gap 12 mmol/L (10-20); BUN (Urea Nitrogen) 20 mg/dL (8.4-25.7); Calc. Creatinine Clearance 168 mL/min (70-130); Calcium 8.5 mg/dL (7.8-10.44); Carbon Dioxide 22 mmol/L (23-31); Chloride 106 mmol/L (98-107); Glucose 290 mg/dL (80-115); Sodium 136 mmol/L (136-145)
[2021-05-03] MEDS: Insulin Regular 300 UNITS/3 ML VIAL SC PRN ×4 (05:51→21:22)
[2021-05-03] MEDS: Piperacillin/Tazobactam 3.375 GM in Sodium Chloride 0.9% 100 ML IVPB SCH ×4 (05:59→21:04)
[2021-05-03 07:25] LABS: Actual Bicarbonate (HCO3a) 22.6 mEq/L (22-28); CO2 Tension 42.2 mmHg (35.0-45.0); Carboxyhemoglobin (COHb) 0.5 gm% (0.0-3.0); Hemoglobin (Hb) 12.1 g/dL (14.0-18.0); Potassium - ABG Lab 3.88 mmol/L (3.70-5.30); pH, Arterial 7.35 (7.35-7.45)
[2021-05-03 07:26] LABS: Puncture Site RRA
[2021-05-03] MEDS: Famotidine 40 MG/5 ML Oral Suspension PER TUBE SCH ×2 (09:20→22:27)
[2021-05-03] MEDS: Heparin 5,000 UNITS/ML VIAL SC SCH ×2 (09:21→20:52)
[2021-05-03] MEDS: Polyethylene Glycol 3350 17 GM Packet PO SCH (09:21)
[2021-05-03] MEDS: methylPREDNISolone Sod Succ 40 MG VIAL IVP SCH (09:21)
[2021-05-03] MEDS: Lantus 1000 UNITS/10 ML VIAL SC SCH ×2 (09:24→21:22)
[2021-05-03] MEDS: VANCOMYCIN 2 GRAM/400 ML BAG 2 GM in Premix Bag 1 BAG IVPB SCH ×2 (12:34)
[2021-05-03 23:31] LABS: Vancomycin, Trough 22.3 ug/mL
[2021-05-04] MEDS: VANCOMYCIN 2 GRAM/400 ML BAG 2 GM in Premix Bag 1 BAG IVPB SCH (00:06)
[2021-05-04 04:21] LABS: Anion Gap 14 mmol/L (10-20); BUN (Urea Nitrogen) 22 mg/dL (8.4-25.7); Calc. Creatinine Clearance 190 mL/min (70-130); Calcium 8.7 mg/dL (7.8-10.44); Carbon Dioxide 21 mmol/L (23-31); Chloride 104 mmol/L (98-107); Glucose 273 mg/dL (80-115); Potassium 4.1 mmol/L (3.5-5.1); Sodium 135 mmol/L (136-145)
[2021-05-04 04:24] LABS: #Eosinphils 0.1 thou/uL (0.0-0.7); #Lymphocytes 1.5 thou/uL (1.20-3.40); #Monocytes 1.1 thou/uL (0.11-0.59); #Neutrophils 11.7 thou/uL (1.40-6.50); %Basophils 0.1 % (0.0-1.0); %Eosinophils 0.5 % (0.0-10.0); %Lymphocytes 10.7 % (21.0-51.0); %Monocytes 7.3 % (0.0-10.0); %Neutrophils 81.4 % (42.0-75.0); Hemoglobin 10.8 g/dL (14.0-18.0); Mean Corpuscular HGB CONC 33.9 g/dL (32.0-36.0); Mean Corpuscular Volume 94.5 fL (78.0-98.0); Mean Platelet Volume 8.9 fL (7.4-10.4); Platelet Count 176 thou/uL (130-400); RBC Distribution Width 12.9 % (11.5-14.5); Red Blood Cell (RBC) Count 3.36 mill/uL (4.70-6.10); White Blood Cell (WBC) Count 14.4 thou/uL (4.8-10.8)
[2021-05-04] MEDS: Acetaminophen 650 MG/20.3 ML UDCUP PO PRN (04:38)
[2021-05-04] MEDS: Piperacillin/Tazobactam 3.375 GM in Sodium Chloride 0.9% 100 ML IVPB SCH ×3 (05:13→22:17)
[2021-05-04] MEDS: Insulin Regular 300 UNITS/3 ML VIAL SC PRN ×4 (06:07→22:26)
[2021-05-04] MEDS: Propofol 1,000 MG/100 ML VIAL IV PRN ×3 (06:30→17:55)
[2021-05-04 07:21] LABS: Actual Bicarbonate (HCO3a) 24.3 mEq/L (22-28); Base Excess (BEa) -0.8 mEq/L (-2.0 to +3.0); CO2 Tension 42.3 mmHg (35.0-45.0); Calcium, Ionized (arterial) 1.19 mmol/L (1.12-1.30); Carboxyhemoglobin (COHb) 0.3 gm% (0.0-3.0); Hemoglobin (Hb) 11.3 g/dL (14.0-18.0); O2 Tension (PaO2), arterial 79.9 mmHg (> 80.0); Potassium - ABG Lab 3.87 mmol/L (3.70-5.30); pH, Arterial 7.38 (7.35-7.45)
[2021-05-04 07:22] LABS: ALV-art Gradient 152.425 mmHg (0-20); Puncture Site RRA
[2021-05-04] MEDS: methylPREDNISolone Sod Succ 40 MG VIAL IVP SCH (09:40)
[2021-05-04] MEDS: Heparin 5,000 UNITS/ML VIAL SC SCH ×2 (09:40→22:16)
[2021-05-04] MEDS: Lantus 1000 UNITS/10 ML VIAL SC SCH ×2 (09:40→22:24)
[2021-05-04] MEDS: Polyethylene Glycol 3350 17 GM Packet PO SCH (09:40)
[2021-05-04] MEDS: Famotidine 20 MG TAB PER TUBE SCH ×2 (09:58→22:17)
[2021-05-04] MEDS: VANCOMYCIN 1.75 GM/350 ML BAG 1.75 GM in Premix Bag 1 BAG IVPB SCH (11:33)
[2021-05-04] MEDS: Famotidine 40 MG/5 ML Oral Suspension PER TUBE SCH (19:54)
[2021-05-04] MEDS ORDERED: Famotidine 20 MG TAB PER TUBE SCH (21:00)
[2021-05-05] MEDS: VANCOMYCIN 1.75 GM/350 ML BAG 1.75 GM in Premix Bag 1 BAG IVPB SCH ×2 (00:35→12:57)
[2021-05-05] MEDS: Propofol 1,000 MG/100 ML VIAL IV PRN ×3 (02:18→15:09)
[2021-05-05] MEDS: Insulin Regular 300 UNITS/3 ML VIAL SC PRN ×4 (04:41→22:29)
[2021-05-05] MEDS: Piperacillin/Tazobactam 3.375 GM in Sodium Chloride 0.9% 100 ML IVPB SCH ×3 (06:17→21:11)
[2021-05-05 06:28] LABS: Anion Gap 17 mmol/L (10-20); BUN (Urea Nitrogen) 21 mg/dL (8.4-25.7); Calc. Creatinine Clearance 190 mL/min (70-130); Calcium 8.6 mg/dL (7.8-10.44); Carbon Dioxide 19 mmol/L (23-31); Chloride 105 mmol/L (98-107); Glucose 283 mg/dL (80-115); Potassium 5.9 mmol/L (3.5-5.1); Sodium 135 mmol/L (136-145)
[2021-05-05 06:47] LABS: Base Excess (BEa) -3.2 mEq/L (-2.0 to +3.0); CO2 Tension 45.8 mmHg (35.0-45.0); Calcium, Ionized (arterial) 1.21 mmol/L (1.12-1.30); Carboxyhemoglobin (COHb) 0.9 gm% (0.0-3.0); Hemoglobin (Hb) 12.2 g/dL (14.0-18.0); Potassium - ABG Lab 4.06 mmol/L (3.70-5.30); pH, Arterial 7.32 (7.35-7.45)
[2021-05-05 06:48] LABS: Puncture Site RRA
[2021-05-05 06:49] LABS: Hemoglobin 11.8 g/dL (14.0-18.0); Lymphocytes 12 % (21-51); MDiff Complete? YES; Mean Corpuscular Hemoglobin 31.6 pg (27.0-31.0); Mean Corpuscular Volume 95.7 fL (78.0-98.0); Mean Platelet Volume 8.6 fL (7.4-10.4); Monocytes 5 % (0-10); Neutrophil 83 % (42-75); Platelet Count 195 thou/uL (130-400); Platelet Morphology Comment Appears Adequate; RBC Distribution Width 13.1 % (11.5-14.5); Red Blood Cell (RBC) Count 3.74 mill/uL (4.70-6.10); White Blood Cell (WBC) Count 20.7 thou/uL (4.8-10.8)
[2021-05-05] MEDS: Famotidine 20 MG TAB PER TUBE SCH ×2 (08:59→21:12)
[2021-05-05] MEDS: Heparin 5,000 UNITS/ML VIAL SC SCH ×2 (08:59→21:12)
[2021-05-05] MEDS: methylPREDNISolone Sod Succ 40 MG VIAL IVP SCH (09:00)
[2021-05-05] MEDS: Polyethylene Glycol 3350 17 GM Packet PO SCH (09:00)
[2021-05-05] MEDS: Lantus 1000 UNITS/10 ML VIAL SC SCH ×2 (09:15→21:12)
[2021-05-05] MEDS: Acetaminophen 650 MG/20.3 ML UDCUP PO PRN (13:01)
[2021-05-05] MEDS ORDERED: Propofol 1,000 MG/100 ML VIAL IV ONE (15:05)
[2021-05-05 23:16] LABS: Vancomycin, Trough 14.7 ug/mL
[2021-05-06] MEDS: VANCOMYCIN 1.75 GM/350 ML BAG 1.75 GM in Premix Bag 1 BAG IVPB SCH ×2 (00:02→12:35)
[2021-05-06] MEDS: Acetaminophen 650 MG/20.3 ML UDCUP PO PRN (00:02)
[2021-05-06] MEDS: Propofol 1,000 MG/100 ML VIAL IV PRN (01:56)
[2021-05-06] MEDS: Insulin Regular 300 UNITS/3 ML VIAL SC PRN ×4 (04:21→21:52)
[2021-05-06] MEDS: Piperacillin/Tazobactam 3.375 GM in Sodium Chloride 0.9% 100 ML IVPB SCH ×3 (06:02→21:46)
[2021-05-06] MEDS: Heparin 5,000 UNITS/ML VIAL SC SCH ×2 (09:10→21:46)
[2021-05-06] MEDS: Famotidine 20 MG TAB PER TUBE SCH ×2 (09:10→21:47)
[2021-05-06] MEDS: Lantus 1000 UNITS/10 ML VIAL SC SCH ×2 (09:11→21:50)
[2021-05-06] MEDS: methylPREDNISolone Sod Succ 40 MG VIAL IVP SCH (09:11)
[2021-05-06] MEDS: Polyethylene Glycol 3350 17 GM Packet PO SCH (09:11)
[2021-05-06 12:51] LABS: Hemoglobin 11.2 g/dL (14.0-18.0); Mean Corpuscular Hemoglobin 31.6 pg (27.0-31.0); Mean Corpuscular Volume 95.8 fL (78.0-98.0); Mean Platelet Volume 8.4 fL (7.4-10.4); Platelet Count 214 thou/uL (130-400); Red Blood Cell (RBC) Count 3.55 mill/uL (4.70-6.10); White Blood Cell (WBC) Count 17.8 thou/uL (4.8-10.8)
[2021-05-06 13:34] LABS: Band 4 % (5-11); Lymphocytes 2 % (21-51); MDiff Complete? YES; Monocytes 2 % (0-10); Neutrophil 92 % (42-75); Platelet Morphology Comment Appears Adequate; Polychromasia SLIGHT = 2-3 cells (100X) (0-2/hpf)
[2021-05-06 15:52] LABS: BUN (Urea Nitrogen) 23 mg/dL (8.4-25.7); Calc. Creatinine Clearance 183 mL/min (70-130); Calcium 8.9 mg/dL (7.8-10.44); Glucose 279 mg/dL (80-115)
[2021-05-06 16:12] LABS: Chloride 105 mmol/L (98-107); Potassium 5.5 mmol/L (3.5-5.1); Sodium 139 mmol/L (136-145)
[2021-05-06 18:45] LABS: Carbon Dioxide 9 mmol/L (23-31)
[2021-05-06 18:54] LABS: Base Excess (BEa) 2.2 mEq/L (-2.0 to +3.0); CO2 Tension 42.9 mmHg (35.0-45.0); Calcium, Ionized (arterial) 1.19 mmol/L (1.12-1.30); Carboxyhemoglobin (COHb) 0.5 gm% (0.0-3.0); Hemoglobin (Hb) 11.1 g/dL (14.0-18.0); O2 Tension (PaO2), arterial 89.1 mmHg (> 80.0); Potassium - ABG Lab 3.83 mmol/L (3.70-5.30); pH, Arterial 7.42 (7.35-7.45)
[2021-05-06 18:56] LABS: ALV-art Gradient 213.775 mmHg (0-20); Puncture Site RRA
[2021-05-06 19:49] LABS: Anion Gap 31 mmol/L (10-20)
[2021-05-07] MEDS: VANCOMYCIN 1.75 GM/350 ML BAG 1.75 GM in Premix Bag 1 BAG IVPB SCH ×3 (00:13→23:42)
[2021-05-07] MEDS: Insulin Regular 300 UNITS/3 ML VIAL SC PRN ×4 (04:05→22:21)
[2021-05-07] MEDS: Piperacillin/Tazobactam 3.375 GM in Sodium Chloride 0.9% 100 ML IVPB SCH ×3 (05:14→22:16)
[2021-05-07] MEDS: Acetaminophen 650 MG/20.3 ML UDCUP PO PRN (08:16)
[2021-05-07] MEDS: Famotidine 20 MG TAB PER TUBE SCH ×2 (08:17→20:57)
[2021-05-07] MEDS: Morphine 2 MG/ML VIAL SLOW IVP PRN ×2 (08:17→17:09)
[2021-05-07] MEDS: methylPREDNISolone Sod Succ 40 MG VIAL IVP SCH (08:18)
[2021-05-07] MEDS: Polyethylene Glycol 3350 17 GM Packet PO SCH (08:18)
[2021-05-07 09:21] LABS: Hemoglobin 11.1 g/dL (14.0-18.0); Mean Corpuscular HGB CONC 33.1 g/dL (32.0-36.0); Mean Corpuscular Hemoglobin 31.6 pg (27.0-31.0); Mean Corpuscular Volume 95.5 fL (78.0-98.0); Mean Platelet Volume 8.7 fL (7.4-10.4); Platelet Count 224 thou/uL (130-400); RBC Distribution Width 13.4 % (11.5-14.5); Red Blood Cell (RBC) Count 3.52 mill/uL (4.70-6.10)
[2021-05-07 09:27] LABS: Anion Gap 22 mmol/L (10-20); BUN (Urea Nitrogen) 24 mg/dL (8.4-25.7); Calc. Creatinine Clearance 190 mL/min (70-130); Carbon Dioxide 19 mmol/L (23-31); Chloride 104 mmol/L (98-107); Glucose 316 mg/dL (80-115); Potassium 4.6 mmol/L (3.5-5.1); Sodium 140 mmol/L (136-145)
[2021-05-07 10:02] LABS: Band 2 % (5-11); Lymphocytes 10 % (21-51); MDiff Complete? YES; Monocytes 12 % (0-10); Neutrophil 75 % (42-75); Platelet Morphology Comment PLT clumps seen-ADEQ
[2021-05-07] MEDS: Heparin 5,000 UNITS/ML VIAL SC SCH ×2 (10:08→20:56)
[2021-05-07] MEDS ORDERED: Carvedilol 3.125 MG TAB PER TUBE SCH (11:00)
[2021-05-07] MEDS: Lantus 1000 UNITS/10 ML VIAL SC SCH ×2 (11:48→20:56)
[2021-05-07] MEDS: Carvedilol 3.125 MG TAB PER TUBE SCH (16:59)
[2021-05-07] MEDS: Lorazepam 2 MG/ML VIAL SLOW IVP PRN (18:08)
[2021-05-07] MEDS: Labetalol HCl 100 MG/20 ML VIAL SLOW IVP PRN (21:08)
[2021-05-07 23:30] LABS: Vancomycin, Trough 14.9 ug/mL
[2021-05-08] MEDS: Labetalol HCl 100 MG/20 ML VIAL SLOW IVP PRN ×2 (01:48→18:04)
[2021-05-08] MEDS: Insulin Regular 300 UNITS/3 ML VIAL SC PRN ×4 (04:14→21:47)
[2021-05-08 04:50] LABS: Anion Gap 17 mmol/L (10-20); BUN (Urea Nitrogen) 26 mg/dL (8.4-25.7); Band 5 % (5-11); Calc. Creatinine Clearance 233 mL/min (70-130); Calcium 9.1 mg/dL (7.8-10.44); Carbon Dioxide 24 mmol/L (23-31); Chloride 101 mmol/L (98-107); Glucose 276 mg/dL (80-115); Hemoglobin 12.2 g/dL (14.0-18.0); Hypochromia SLIGHT = 6-15 cells (100X) (0-5/hpf); Lymphocytes 9 % (21-51); MDiff Complete? YES; Mean Corpuscular HGB CONC 34.1 g/dL (32.0-36.0); Mean Corpuscular Hemoglobin 32.8 pg (27.0-31.0); Mean Corpuscular Volume 96.5 fL (78.0-98.0); Mean Platelet Volume 7.9 fL (7.4-10.4); Monocytes 10 % (0-10); Neutrophil 76 % (42-75); Platelet Count 262 thou/uL (130-400); Platelet Morphology Comment Appears Adequate; Potassium 4.2 mmol/L (3.5-5.1); RBC Distribution Width 13.2 % (11.5-14.5); Red Blood Cell (RBC) Count 3.72 mill/uL (4.70-6.10); Sodium 138 mmol/L (136-145)
[2021-05-08] MEDS: Piperacillin/Tazobactam 3.375 GM in Sodium Chloride 0.9% 100 ML IVPB SCH ×3 (05:27→21:44)
[2021-05-08] MEDS: Acetaminophen 650 MG/20.3 ML UDCUP PO PRN ×3 (09:54→21:47)
[2021-05-08] MEDS: Polyethylene Glycol 3350 17 GM Packet PO SCH (09:54)
[2021-05-08] MEDS: Heparin 5,000 UNITS/ML VIAL SC SCH ×2 (09:54→21:43)
[2021-05-08] MEDS: methylPREDNISolone Sod Succ 40 MG VIAL IVP SCH (09:54)
[2021-05-08] MEDS: Famotidine 20 MG TAB PER TUBE SCH ×2 (09:54→21:43)
[2021-05-08] MEDS: Carvedilol 3.125 MG TAB PER TUBE SCH ×2 (09:55→16:54)
[2021-05-08] MEDS: Lantus 1000 UNITS/10 ML VIAL SC SCH ×2 (09:55→21:43)
[2021-05-08] MEDS: VANCOMYCIN 1.75 GM/350 ML BAG 1.75 GM in Premix Bag 1 BAG IVPB SCH (12:03)
[2021-05-09] MEDS: VANCOMYCIN 1.75 GM/350 ML BAG 1.75 GM in Premix Bag 1 BAG IVPB SCH ×2 (01:00→12:30)
[2021-05-09] MEDS: Acetaminophen 650 MG/20.3 ML UDCUP PO PRN ×3 (03:20→23:36)
[2021-05-09 04:22] LABS: Anion Gap 19 mmol/L (10-20); BUN (Urea Nitrogen) 26 mg/dL (8.4-25.7); Calc. Creatinine Clearance 204 mL/min (70-130); Calcium 8.8 mg/dL (7.8-10.44); Carbon Dioxide 22 mmol/L (23-31); Chloride 101 mmol/L (98-107); Glucose 239 mg/dL (80-115); Potassium 4.6 mmol/L (3.5-5.1); Sodium 137 mmol/L (136-145)
[2021-05-09] MEDS: Insulin Regular 300 UNITS/3 ML VIAL SC PRN ×3 (04:29→21:12)
[2021-05-09] MEDS: Piperacillin/Tazobactam 3.375 GM in Sodium Chloride 0.9% 100 ML IVPB SCH ×3 (06:25→21:28)
[2021-05-09 06:45] LABS: Mean Corpuscular HGB CONC 32.4 g/dL (32.0-36.0); Mean Corpuscular Hemoglobin 31.4 pg (27.0-31.0); Mean Corpuscular Volume 97.1 fL (78.0-98.0); Mean Platelet Volume 8.5 fL (7.4-10.4); Platelet Count 303 thou/uL (130-400); RBC Distribution Width 13.6 % (11.5-14.5); Red Blood Cell (RBC) Count 3.83 mill/uL (4.70-6.10); White Blood Cell (WBC) Count 18.2 thou/uL (4.8-10.8)
[2021-05-09 07:37] LABS: MDiff Complete? YES
[2021-05-09 07:38] LABS: Band 11 % (5-11); Lymphocytes 15 % (21-51); Metamyelocyte 1 % (0-0); Monocytes 5 % (0-10); Neutrophil 68 % (42-75); Platelet Morphology Comment Appears Adequate; Polychromasia SLIGHT = 2-3 cells (100X) (0-2/hpf)
[2021-05-09] MEDS: Famotidine 20 MG TAB PER TUBE SCH ×2 (08:33→21:19)
[2021-05-09] MEDS: Carvedilol 3.125 MG TAB PER TUBE SCH ×2 (08:33→16:38)
[2021-05-09] MEDS: Lorazepam 2 MG/ML VIAL SLOW IVP PRN ×2 (08:33→23:23)
[2021-05-09] MEDS: methylPREDNISolone Sod Succ 40 MG VIAL IVP SCH (08:33)
[2021-05-09] MEDS: Polyethylene Glycol 3350 17 GM Packet PO SCH (08:33)
[2021-05-09] MEDS: Lantus 1000 UNITS/10 ML VIAL SC SCH ×2 (08:33→21:13)
[2021-05-09] MEDS: Heparin 5,000 UNITS/ML VIAL SC SCH ×2 (08:33→21:16)
[2021-05-10] MEDS: VANCOMYCIN 1.75 GM/350 ML BAG 1.75 GM in Premix Bag 1 BAG IVPB SCH ×3 (01:09→23:57)
[2021-05-10] MEDS: Lorazepam 2 MG/ML VIAL SLOW IVP PRN ×3 (03:15→23:56)
[2021-05-10] MEDS: Insulin Regular 300 UNITS/3 ML VIAL SC PRN ×4 (04:35→21:07)
[2021-05-10] MEDS: Piperacillin/Tazobactam 3.375 GM in Sodium Chloride 0.9% 100 ML IVPB SCH ×3 (05:47→21:12)
[2021-05-10 07:20] LABS: Hemoglobin 11.5 g/dL (14.0-18.0); Mean Corpuscular HGB CONC 33.2 g/dL (32.0-36.0); Mean Corpuscular Volume 96.5 fL (78.0-98.0); Mean Platelet Volume 8.1 fL (7.4-10.4); Platelet Count 250 thou/uL (130-400); RBC Distribution Width 13.7 % (11.5-14.5); Red Blood Cell (RBC) Count 3.58 mill/uL (4.70-6.10); White Blood Cell (WBC) Count 17.2 thou/uL (4.8-10.8)
[2021-05-10 07:58] LABS: Band 2 % (5-11); Eosinophils 1 % (0-10); Lymphocytes 14 % (21-51); MDiff Complete? YES; Monocytes 11 % (0-10); Myelocyte 1 % (0-0); Neutrophil 71 % (42-75); Platelet Morphology Comment Appears Adequate; Polychromasia SLIGHT = 2-3 cells (100X) (0-2/hpf)
[2021-05-10] MEDS: Famotidine 20 MG TAB PER TUBE SCH ×2 (09:15→21:12)
[2021-05-10] MEDS: Carvedilol 3.125 MG TAB PER TUBE SCH ×2 (09:15→17:52)
[2021-05-10] MEDS: Heparin 5,000 UNITS/ML VIAL SC SCH ×2 (09:15→21:09)
[2021-05-10] MEDS: Lantus 1000 UNITS/10 ML VIAL SC SCH ×2 (09:16→21:08)
[2021-05-10] MEDS: Polyethylene Glycol 3350 17 GM Packet PO SCH (09:29)
[2021-05-10] MEDS: methylPREDNISolone Sod Succ 40 MG VIAL IVP SCH (09:29)
[2021-05-10 10:32] LABS: Chloride 104 mmol/L (98-107); Sodium 136 mmol/L (136-145)
[2021-05-10 10:33] LABS: Calcium 8.6 mg/dL (7.8-10.44); Glucose 273 mg/dL (80-115)
[2021-05-10 10:35] LABS: Anion Gap 23 mmol/L (10-20); Carbon Dioxide 17 mmol/L (23-31)
[2021-05-10 10:37] LABS: Calc. Creatinine Clearance 0 mL/min (70-130)
[2021-05-10 10:38] LABS: BUN (Urea Nitrogen) 32 mg/dL (8.4-25.7)
[2021-05-10 10:57] LABS: Potassium 7.7 mmol/L (3.5-5.1)
[2021-05-10 12:09] LABS: Anion Gap 24 mmol/L (10-20); BUN (Urea Nitrogen) 31 mg/dL (8.4-25.7); Calc. Creatinine Clearance 0 mL/min (70-130); Calcium 8.7 mg/dL (7.8-10.44); Carbon Dioxide 15 mmol/L (23-31); Chloride 106 mmol/L (98-107); Glucose 281 mg/dL (80-115); Potassium 6.6 mmol/L (3.5-5.1); Sodium 138 mmol/L (136-145)
[2021-05-10] MEDS ORDERED: Insulin Regular 300 UNITS/3 ML VIAL IVP SCH (12:30)
[2021-05-10] MEDS ORDERED: Furosemide 40 MG/4 ML VIAL SLOW IVP SCH (17:00)
[2021-05-11 01:01] LABS: Vancomycin, Trough 25.3 ug/mL
[2021-05-11] MEDS: VANCOMYCIN 1.75 GM/350 ML BAG 1.75 GM in Premix Bag 1 BAG IVPB SCH (01:41)
[2021-05-11] MEDS: Lorazepam 2 MG/ML VIAL SLOW IVP PRN ×6 (03:37→19:45)
[2021-05-11] MEDS: Insulin Regular 300 UNITS/3 ML VIAL SC PRN ×4 (03:42→22:15)
[2021-05-11 03:55] LABS: #Eosinphils 0.1 thou/uL (0.0-0.7); #Lymphocytes 2.2 thou/uL (1.20-3.40); #Monocytes 1.3 thou/uL (0.11-0.59); #Neutrophils 14.8 thou/uL (1.40-6.50); %Basophils 0.1 % (0.0-1.0); %Eosinophils 0.4 % (0.0-10.0); %Lymphocytes 11.9 % (21.0-51.0); %Monocytes 7.1 % (0.0-10.0); %Neutrophils 80.5 % (42.0-75.0); Hemoglobin 12.8 g/dL (14.0-18.0); Mean Corpuscular HGB CONC 33.4 g/dL (32.0-36.0); Mean Corpuscular Hemoglobin 32.6 pg (27.0-31.0); Mean Corpuscular Volume 97.7 fL (78.0-98.0); Mean Platelet Volume 8.4 fL (7.4-10.4); Platelet Count 240 thou/uL (130-400); RBC Distribution Width 13.8 % (11.5-14.5); Red Blood Cell (RBC) Count 3.93 mill/uL (4.70-6.10); White Blood Cell (WBC) Count 18.3 thou/uL (4.8-10.8)
[2021-05-11 04:15] LABS: Anion Gap 19 mmol/L (10-20); BUN (Urea Nitrogen) 29 mg/dL (8.4-25.7); Calc. Creatinine Clearance 0 mL/min (70-130); Calcium 8.7 mg/dL (7.8-10.44); Carbon Dioxide 24 mmol/L (23-31); Chloride 101 mmol/L (98-107); Glucose 229 mg/dL (80-115); Potassium 3.6 mmol/L (3.5-5.1); Sodium 140 mmol/L (136-145)
[2021-05-11] MEDS: Piperacillin/Tazobactam 3.375 GM in Sodium Chloride 0.9% 100 ML IVPB SCH ×2 (06:04→14:37)
[2021-05-11] MEDS ORDERED: Vancomycin 1.5 GRAM/300 ML BAG 1.5 GM in Premix Bag 1 BAG IVPB SCH (08:00)
[2021-05-11] MEDS: Carvedilol 3.125 MG TAB PER TUBE SCH ×2 (08:02→17:18)
[2021-05-11] MEDS: Heparin 5,000 UNITS/ML VIAL SC SCH ×2 (08:02→19:45)
[2021-05-11] MEDS: Famotidine 20 MG TAB PER TUBE SCH ×2 (08:02→19:45)
[2021-05-11] MEDS: Lantus 1000 UNITS/10 ML VIAL SC SCH ×2 (08:03→22:13)
[2021-05-11] MEDS: methylPREDNISolone Sod Succ 40 MG VIAL IVP SCH (08:03)
[2021-05-11] MEDS: Polyethylene Glycol 3350 17 GM Packet PO SCH (08:04)
[2021-05-11 08:37] VITALS: BMI 45.1
[2021-05-11] MEDS: Morphine 2 MG/ML VIAL SLOW IVP PRN (16:37)
[2021-05-12] MEDS: Lorazepam 2 MG/ML VIAL SLOW IVP PRN ×4 (01:39→18:06)
[2021-05-12 04:00] LABS: #Eosinphils 0.1 thou/uL (0.0-0.7); #Lymphocytes 1.5 thou/uL (1.20-3.40); #Monocytes 0.8 thou/uL (0.11-0.59); #Neutrophils 11.7 thou/uL (1.40-6.50); %Basophils 0.2 % (0.0-1.0); %Eosinophils 0.4 % (0.0-10.0); %Lymphocytes 10.8 % (21.0-51.0); %Monocytes 5.8 % (0.0-10.0); %Neutrophils 82.8 % (42.0-75.0); Hemoglobin 10.8 g/dL (14.0-18.0); Mean Corpuscular HGB CONC 34.1 g/dL (32.0-36.0); Mean Corpuscular Hemoglobin 33.1 pg (27.0-31.0); Mean Platelet Volume 8.4 fL (7.4-10.4); Platelet Count 236 thou/uL (130-400); RBC Distribution Width 13.7 % (11.5-14.5); Red Blood Cell (RBC) Count 3.27 mill/uL (4.70-6.10); White Blood Cell (WBC) Count 14.1 thou/uL (4.8-10.8)
[2021-05-12 04:18] LABS: Anion Gap 15 mmol/L (10-20); BUN (Urea Nitrogen) 28 mg/dL (8.4-25.7); Calc. Creatinine Clearance 226 mL/min (70-130); Calcium 8.6 mg/dL (7.8-10.44); Carbon Dioxide 28 mmol/L (23-31); Chloride 100 mmol/L (98-107); Glucose 174 mg/dL (80-115); Potassium 3.1 mmol/L (3.5-5.1); Sodium 140 mmol/L (136-145)
[2021-05-12] MEDS: Insulin Regular 300 UNITS/3 ML VIAL SC PRN ×3 (05:33→20:40)
[2021-05-12] MEDS ORDERED: Potassium Chloride 40 MEQ in Premix Bag 1 BAG IVPB SCH (05:45)
[2021-05-12] MEDS: Acetaminophen 650 MG/20.3 ML UDCUP PO PRN (05:47)
[2021-05-12] MEDS: methylPREDNISolone Sod Succ 40 MG VIAL IVP SCH (08:33)
[2021-05-12] MEDS: Heparin 5,000 UNITS/ML VIAL SC SCH ×2 (08:33→20:36)
[2021-05-12] MEDS: Lantus 1000 UNITS/10 ML VIAL SC SCH ×2 (08:33→20:37)
[2021-05-12] MEDS: Famotidine 20 MG TAB PER TUBE SCH ×2 (08:33→20:36)
[2021-05-12] MEDS: Carvedilol 3.125 MG TAB PER TUBE SCH ×2 (08:33→17:36)
[2021-05-12] MEDS: Polyethylene Glycol 3350 17 GM Packet PO SCH (09:59)
[2021-05-12 13:40] LABS: Potassium 4.7 mmol/L (3.5-5.1)
[2021-05-12] MEDS: Morphine 2 MG/ML VIAL SLOW IVP PRN (18:26)
[2021-05-12] MEDS: Propofol 1,000 MG/100 ML VIAL IV PRN (18:35)
[2021-05-13 04:13] LABS: #Lymphocytes 1.1 thou/uL (1.20-3.40); #Monocytes 0.6 thou/uL (0.11-0.59); #Neutrophils 10.2 thou/uL (1.40-6.50); %Eosinophils 0.2 % (0.0-10.0); %Lymphocytes 9.5 % (21.0-51.0); %Monocytes 4.7 % (0.0-10.0); %Neutrophils 85.6 % (42.0-75.0); Hemoglobin 9.9 g/dL (14.0-18.0); Mean Corpuscular HGB CONC 31.8 g/dL (32.0-36.0); Mean Corpuscular Hemoglobin 30.9 pg (27.0-31.0); Mean Corpuscular Volume 97.2 fL (78.0-98.0); Mean Platelet Volume 8.7 fL (7.4-10.4); Platelet Count 223 thou/uL (130-400); RBC Distribution Width 13.5 % (11.5-14.5); Red Blood Cell (RBC) Count 3.22 mill/uL (4.70-6.10); White Blood Cell (WBC) Count 11.9 thou/uL (4.8-10.8)
[2021-05-13 04:32] LABS: Anion Gap 15 mmol/L (10-20); BUN (Urea Nitrogen) 29 mg/dL (8.4-25.7); Calc. Creatinine Clearance 229 mL/min (70-130); Calcium 8.5 mg/dL (7.8-10.44); Carbon Dioxide 29 mmol/L (23-31); Chloride 102 mmol/L (98-107); Glucose 203 mg/dL (80-115); Potassium 3.6 mmol/L (3.5-5.1); Sodium 142 mmol/L (136-145)
[2021-05-13] MEDS: Insulin Regular 300 UNITS/3 ML VIAL SC PRN ×4 (04:51→20:47)
[2021-05-13] MEDS: Lorazepam 2 MG/ML VIAL SLOW IVP PRN ×2 (05:08→17:05)
[2021-05-13] MEDS: methylPREDNISolone Sod Succ 40 MG VIAL IVP SCH (08:19)
[2021-05-13] MEDS: Heparin 5,000 UNITS/ML VIAL SC SCH ×2 (08:19→20:46)
[2021-05-13] MEDS: Carvedilol 3.125 MG TAB PER TUBE SCH ×2 (08:19→17:06)
[2021-05-13] MEDS: Famotidine 20 MG TAB PER TUBE SCH ×2 (08:19→20:46)
[2021-05-13] MEDS: Lantus 1000 UNITS/10 ML VIAL SC SCH ×2 (08:21→20:47)
[2021-05-13] MEDS: Polyethylene Glycol 3350 17 GM Packet PO SCH (11:32)
[2021-05-14] MEDS: Lorazepam 2 MG/ML VIAL SLOW IVP PRN ×3 (00:03→21:00)
[2021-05-14 04:36] LABS: #Lymphocytes 1.3 thou/uL (1.20-3.40); #Monocytes 0.7 thou/uL (0.11-0.59); #Neutrophils 10.1 thou/uL (1.40-6.50); %Basophils 0.1 % (0.0-1.0); %Eosinophils 0.2 % (0.0-10.0); %Lymphocytes 10.4 % (21.0-51.0); %Neutrophils 83.3 % (42.0-75.0); Hemoglobin 10.6 g/dL (14.0-18.0); Mean Corpuscular HGB CONC 33.3 g/dL (32.0-36.0); Mean Corpuscular Hemoglobin 32.6 pg (27.0-31.0); Mean Corpuscular Volume 97.8 fL (78.0-98.0); Platelet Count 221 thou/uL (130-400); RBC Distribution Width 13.8 % (11.5-14.5); Red Blood Cell (RBC) Count 3.24 mill/uL (4.70-6.10); White Blood Cell (WBC) Count 12.1 thou/uL (4.8-10.8)
[2021-05-14 04:54] LABS: Anion Gap 14 mmol/L (10-20); BUN (Urea Nitrogen) 31 mg/dL (8.4-25.7); Calc. Creatinine Clearance 229 mL/min (70-130); Calcium 8.4 mg/dL (7.8-10.44); Carbon Dioxide 29 mmol/L (23-31); Chloride 102 mmol/L (98-107); Glucose 84 mg/dL (80-115); Potassium 4.2 mmol/L (3.5-5.1); Sodium 141 mmol/L (136-145)
[2021-05-14] MEDS: Carvedilol 3.125 MG TAB PER TUBE SCH ×2 (08:25→16:41)
[2021-05-14] MEDS: Famotidine 20 MG TAB PER TUBE SCH (08:25)
[2021-05-14] MEDS: Heparin 5,000 UNITS/ML VIAL SC SCH (08:25)
[2021-05-14] MEDS: Lantus 1000 UNITS/10 ML VIAL SC SCH (08:33)
[2021-05-14] MEDS: methylPREDNISolone Sod Succ 40 MG VIAL IVP SCH (08:37)
[2021-05-14] MEDS: Polyethylene Glycol 3350 17 GM Packet PO SCH (08:38)
[2021-05-14 14:30] VITALS: BP 116/68
[2021-05-14] MEDS: Insulin Regular 300 UNITS/3 ML VIAL SC PRN (15:56)
[2021-05-14] MEDS: Morphine 2 MG/ML VIAL SLOW IVP PRN (20:59)
[2021-05-14 22:38] VITALS: TEMP 98.6
== END 2021-05-14 22:05 | disposition expired | DRG 870 ==
LOC: ERS 18:17 → CCU 19:33
PROVIDERS: ADMIT Internal Medicine; ATTEND Internal Medicine
PROC: 05H533Z Insertion of Infusion Device into Right Subclavian Vein, Percutaneous Approach (ICD-10-PCS; principal; 2021-04-29)
PROC: 3E043XZ Introduction of Vasopressor into Central Vein, Percutaneous Approach (ICD-10-PCS; 2021-04-29)
PROC: 5A1955Z Respiratory Ventilation, Greater than 96 Consecutive Hours (ICD-10-PCS; 2021-04-29)
DX: A41.9 Sepsis, unspecified organism (principal); R65.21 Severe sepsis with septic shock; J18.9 Pneumonia, unspecified organism; I50.33 Acute on chronic diastolic (congestive) heart failure; G93.6 Cerebral edema; J96.21 Acute and chronic respiratory failure with hypoxia; J96.22 Acute and chronic respiratory failure with hypercapnia; G93.1 Anoxic brain damage, not elsewhere classified; J44.1 Chronic obstructive pulmonary disease with (acute) exacerbation; J44.0 Chronic obstructive pulmonary disease with (acute) lower respiratory infection; N39.0 Urinary tract infection, site not specified; Z68.42 Body mass index [BMI] 45.0-49.9, adult; Z99.11 Dependence on respirator [ventilator] status; I42.9 Cardiomyopathy, unspecified; Z66 Do not resuscitate; Z51.5 Encounter for palliative care; F41.9 Anxiety disorder, unspecified; F32.9 Major depressive disorder, single episode, unspecified; E66.01 Morbid (severe) obesity due to excess calories; I11.0 Hypertensive heart disease with heart failure; I25.10 Atherosclerotic heart disease of native coronary artery without angina pectoris; G47.33 Obstructive sleep apnea (adult) (pediatric); I46.9 Cardiac arrest, cause unspecified; E78.2 Mixed hyperlipidemia; E11.9 Type 2 diabetes mellitus without complications; Z20.822 Contact with and (suspected) exposure to COVID-19; F17.210 Nicotine dependence, cigarettes, uncomplicated; E87.5 Hyperkalemia; Z78.1 Physical restraint status; Z99.81 Dependence on supplemental oxygen; Z79.82 Long term (current) use of aspirin; Z79.899 Other long term (current) drug therapy; Z79.4 Long term (current) use of insulin; Z95.810 Presence of automatic (implantable) cardiac defibrillator
CPT/HCPCS: 36415; 36416; 36556; 36600; 70450; 71045; 80048; 80202; 82553; 82805; 83605; 83735; 83880; 84484; 85025; 87040; 87070; 87086; 87205; 93005; 93010; 93306; 94002; 94003; 94640; 94760; 95816; 95819; 95957; 96365; 96368; 96374; 96375; J1644; J1815; J1940; J2060; J2270; J2543; J2704; J2920; J2930; J3010; J3370; J3475; J3480; J3490; J7620; U0002; U0005